=== PATIENT | female | born 1950 | race Caucasian/White ===

== ENCOUNTER 2020-12-07 16:05 | Outpatient (CLI) | payer OTHER, MEDICARE, SELFPAY | END 2020-12-07 16:06 | disposition home or self-care (01) | LOC: ANHCOVIDVC 16:06 | PROVIDERS: PCP Internal Medicine | DX: Z23 Encounter for immunization (principal) | CPT/HCPCS: 0001A; 91300 ==

== ENCOUNTER 2020-12-28 16:16 | Outpatient (CLI) | payer OTHER, MEDICARE, SELFPAY | END 2020-12-28 16:17 | disposition home or self-care (01) | LOC: ANHCOVIDVC 16:16 | PROVIDERS: PCP Internal Medicine | DX: Z23 Encounter for immunization (principal) | CPT/HCPCS: 0002A; 91300 ==

== ENCOUNTER 2022-01-24 11:11 | Emergency (ER) | payer OTHER, SELFPAY ==
--- NOTE | ~2022-01-24 | XR_ITS ---
EXAMINATION: XR chest 2V DATE: 01/24/2022 12:01 INDICATION: Chest discomfort TECHNIQUE: PA and lateral views of the chest were obtained. COMPARISON: Chest radiograph dated 08/02/2018 FINDINGS: Opacities along the bilateral lower lung zones. No pleural effusion or pneumothorax. The cardiomedias tinal silhouette is normal. Visualized bones and soft tissues are unremarkable. IMPRESSION: 1. Opacities in the bilateral lower lung zones which could represent atelectasis, pneumonia or less l ikely pulmonary edema. Reviewed, dictated and finalized at location B. IMPRESSION: 1. Opacities in the bilateral lower lung zones which could represent atelectasi s, pneumonia or less likely pulmonary edema.
--- NOTE | ~2022-01-24 | CT_ITS ---
EXAMINATION: CTA chest PE protocol DATE: 01/24/2022 13:29 INDICATION: Left flank pain. Back pain. TECHNIQUE: Computed tomography angiography (CTA) of the chest was performed with 100 mL Omnipaque-350 intravenous contrast timed to evaluate the pulmonary arteries. Coronal maximum intensity projection 3D-reconstructions were created by the technologist. Automated exposure control and iterative reconst ruction technique were employed. The dose-length product was 990.68 mGy-cm. COMPARISON: CT abdomen and pelvis 08/03/2018 FINDINGS: The lungs demonstrate mild atelectasis. Calcified pulmonary nodules and calcified left ge r lymph nodes are consistent with old granulomatous disease. No pleural effusion. The heart size is n ormal. No pericardial effusion. There is no pulmonary embolus. There is a gallstone in the gallbladde r, which is normal in size. Calcifications in the spleen are consistent with old granulomatous diseas e. There is mild thoracic spondylosis. IMPRESSION: 1. No pulmonary embolus. Reviewed, dictated and finalized at location A. IMPRESSION: 1. No pulmonary embolus.
--- NOTE | 2022-01-24 11:12 | ECG_ITS ---
Measurements Intervals [place] Rate: 69 P: 44 [place]: 194 QRS: -34 QRSD: 78 T: 74 QT: 390 QTc: 420 Interpretive Statements SINUS RHYTHM MARKED LEFT AXIS DEVIATION [QRS AXIS < -30] LOW QRS VOLTAGE IN PRECORDIAL LEADS [QRS DEFLECTION < 1.0 mV IN CHEST LEADS] PATTERN CONSISTENT WITH PULMONARY DISEASE MINIMAL ST DEPRESSION [0.025+ mV ST DEPRESSION] NO PREVIOUS ECG AVAILABLE FOR COMPARISON Electronically Signed On 01-24-2022 13:50:18 CDT by Flor Pittman M.D.
[2022-01-24 11:13] VITALS: BP 155/70; PULSE 76; RESP 20; TEMP 36.2; O2SAT 97
[2022-01-24 11:25] LABS: Basophils Percent Auto 0.5 % (0.2-1.2); Eosinophils Absolute Auto 0.3 K/mm3 (0-0.3); Eosinophils Percent Auto 3.4 % (0-4.4); Hematocrit 39.1 % (37.0-47.0); Hemoglobin 12.3 g/dL (12.0-15.0); Immature Granulocyte Absolute 0.04 K/mm3 (0.00-0.031); Immature Granulocyte Percent A 0.5 % (0-0.5); Lymphocytes Absolute Auto 1.31 K/mm3 (0.9-3.2); Lymphocytes Percent Auto 17.1 % (18.3-44.2); Mean Corpuscular HGB Conc 31.5 g/dl (32-36); Mean Corpuscular Hemoglobin 31.3 pg (26-34); Mean Corpuscular Volume 99.5 fl (80-100); Mean Platelet Volume 9.9 fl (7.4-10.4); Monocytes Absolute Auto 0.8 K/mm3 (0.1-0.6); Monocytes Percent Auto 10.3 % (2.6-8.5); Neutrophils Absolute Auto 5.2 K/mm3 (1.3-6.7); Neutrophils Percent Auto 68.2 % (45.5-73.1); Platelet Count Result 226 k/mm3 (150-375); Red Blood Count 3.93 M/mm3 (4.2-5.4); Red Cell Distribution Width 13.9 % (11.5-14.5); White Blood Count 7.7 K/mm3 (4.5-10.0)
[2022-01-24 11:29] VITALS: PULSE 67
[2022-01-24 11:38] LABS: Prothrombin Time 12.8 Seconds (11.1-14.7)
[2022-01-24 11:39] LABS: Alanine Aminotransferase 19 U/L (4-35); Albumin Level 3.9 g/dL (3.5-5.1); Alkaline Phosphatase 105 U/L (38-126); Anion Gap 4 mmol/L (8-16); Aspartate Amino Transferase 28 U/L (14-36); Bilirubin,Total 0.3 mg/dL (0.2-1.3); Blood Urea Nitrogen 16 mg/dL (7-17); Calcium 8.4 mg/dL (8.4-10.2); Carbon Dioxide 29 mmol/L (22-30); Chloride 102 mmol/L (98-107); Estimated CRCL calculation 57 ml/min; Estimated Glomerular Filt Rate 49; Glucose 77 mg/dL (65-110); Lipase 110 U/L (23-300); Partial Thromboplastin Time 30.5 SECONDS (22.3-36.8); Potassium 4.7 mmol/L (3.4-5.0); Sodium 135 mmol/L (137-145)
[2022-01-24 11:49] LABS: Troponin I < 0.012 ng/mL (0.000-0.034)
[2022-01-24 11:50] VITALS: BP 142/86; PULSE 65; RESP 21; O2SAT 97
--- NOTE | 2022-01-24 11:56 | ED.BACK ---
HPI - Back Pain/Injury General Chief Complaint: Chest Pain Stated Complaint: chest pain Time Seen by Provider: 01/24/22 11:43 Source: patient Mode of arrival: ambulatory Limitations: no limitations History of Present Illness HPI Narrative: Patient is a 71-year-old female complaining of left upper mid back pain, 5 out of 10, sharp, worse with movement and palpation that started 2 days ago. Patient denies any injury to the area. Patient denies any chest pain, shortness of breath, abdominal pain, nausea, vomiting, diaphoresis, fever or chills. Related Data Home Medications Medication Instructions Recorded Confirmed benztropine 2 mg tablet 2 mg PO BID 08/05/19 05/01/21 risperidone 3 mg tablet 3 mg PO DAILY 08/05/19 05/01/21 mirabegron 50 mg tablet,extended 50 mg PO DAILY 01/02/21 05/01/21 release 24 hr Allergies Allergy/AdvReac Type Severity Reaction Status Date / Time No Known Allergies Allergy Verified 01/24/22 11:28 Review of Systems Review of Systems: All systems reviewed & are unremarkable except as noted in HPI and below Constitutional: Constitutional: Denies body ache(s), Denies chills, Denies excessive sweating, Denies fatigue, Denies fever(s), Denies headache(s), Denies lethargy, Denies malaise, Denies weakness and Denies weight loss Eyes: Eyes: Denies blurry vision, Denies change in vision and Denies loss of vision ENT: Denies dizziness, Denies ear discharge, Denies headache(s), Denies lip swelling, Denies epistaxis, Denies nasal congestion, Denies neck pain, Denies throat swelling and Denies tongue swelling Cardiovascular: Cardiovascular: Denies chest pain, Denies chest pain at rest, Denies chest pain with activity, Denies diaphoresis, Denies rapid heart rate, Denies edema, Denies irregular heart rhythm, Denies lightheadedness, Denies palpitations, Denies dyspnea and Denies dyspnea on exertion Respiratory: Respiratory: Denies chest congestion, Denies cough, Denies hemoptysis, Denies dyspnea and Denies dyspnea on exertion Gastrointestinal: Gastrointestinal: Denies abdominal pain, Denies melena, Denies hematochezia, Denies diarrhea, Denies nausea, Denies vomiting and Denies hematemesis Musculoskeletal: Musculoskeletal: Denies abnormal gait, Denies deformity, Denies joint swelling, Denies limited range of motion, Denies neck pain and Denies numbness Neurologic: Denies Abnormal speech present, Denies abnormal gait, Denies confusion, Denies dizziness, Denies headache(s), Denies focal weakness, Denies loss of vision, Denies numbness, Denies Other visual disturbances, Denies Sensory deficit (Neuro) and Denies weakness Psychiatric: Psychiatric: Denies confusion, Denies depression, Denies auditory hallucinations, Denies homicidal ideation and Denies suicidal ideation Endocrine: Endocrine: Denies cold intolerance, Denies excessive sweating, Denies fatigue, Denies heat intolerance and Denies palpitations Hematologic/Lymphatic: Hematologic/Lymphatic: Denies easy bleeding and Denies easy bruising Allergic/Immunologic: Allergic/Immunologic: Denies lip swelling, Denies throat swelling and Denies tongue swelling PMFSH Past Medical History Medical History (Updated 01/24/22 @ 15:06 by Larry Cintron MD) Plantar fasciitis Family History Family History Mother Diabetes mellitus, Onset Age: 49 Father Patient's father is , Onset Age: 70 Social History Social History Smoking status: Never smoker Second hand tobacco smoke exposure: No Alcohol intake: never Exam Const: General: cooperative, comfortable, no acute distress, well developed, alert and awake; No confusion Nutritional Appearance: obese Orientation/consciousness: oriented to person, oriented to place, oriented to time, patient oriented x3 and No confusion Limitations: no limitations HENMT: Head: normal t
[2022-01-24 12:08] LABS: D Dimer 0.69 ug/mL (<0.48)
[2022-01-24 14:18] VITALS: BP 142/74; PULSE 74; RESP 16; O2SAT 98
[2022-01-24 14:31] LABS: Troponin I < 0.012 ng/mL (0.000-0.034)
[2022-01-24 15:21] VITALS: BP 138/86; PULSE 84; RESP 16; O2SAT 99
== END 2022-01-24 15:21 | disposition home or self-care (01) ==
PROVIDERS: Emergency Provider Emergency Medicine; PCP Family Medicine
DX: M54.6 Pain in thoracic spine (principal); R94.31 Abnormal electrocardiogram [ECG] [EKG]; R91.8 Other nonspecific abnormal finding of lung field
CPT/HCPCS: 36415; 71046; 71275; 80053; 83690; 84484; 85025; 85380; 85610; 85730; 93005; 99284; Q9967

== ENCOUNTER 2022-02-10 11:33 | Outpatient (CLI) | payer OTHER, SELFPAY ==
--- NOTE | ~2022-02-10 | MM_ITS ---
EXAMINATION: MM screening [facility] BI w mckenzie HISTORY: Screening mammogram TECHNIQUE: Craniocaudal and mediolateral oblique 3-D tomosynthesis images were obtained and synthetic 2-D images were generated. CAD analysis was submitted and interpreted. COMPARISON: 01/28/2017, 07/13/2015, 04/20/2013 bilateral screening mammogram examinations BREAST PARENCHYMAL COMPOSITION: The breasts are almost entirely fatty. FINDINGS: There is no evidence of suspicious mass, calcification, or architectural distortion to sugg est malignancy in either breast. There has been no suspicious interval change. IMPRESSION: 1. No mammographic evidence of malignancy. 2. Recommend routine screening mammography in one year. BI-RADS Category 1: Negative Reviewed, dictated and finalized at location A.
== END 2022-02-10 11:34 | disposition home or self-care (01) ==
LOC: ANHIMG 11:35
PROVIDERS: PCP Family Medicine; Visit Provider Family Medicine
DX: Z12.31 Encounter for screening mammogram for malignant neoplasm of breast (principal)
CPT/HCPCS: 77063; 77067

== ENCOUNTER 2022-05-14 13:45 | Outpatient (CLI) | payer OTHER, SELFPAY ==
--- NOTE | ~2022-05-14 | XR_ITS ---
MODIFIED ESOPHAGRAM HISTORY: Dysphagia. TECHNIQUE: Modified barium esophagram was performed on 05/14/2022. I administered fluoroscopy and perf ormed the exam with speech pathologist. Patient was seated for lateral fluoroscopic imaging for jose a stion of thin liquids, pudding, solids and quantified amounts, followed by thin liquids in uncontroll ed amounts. This was recorded on tape. A single fluoroscopic spot image was also recorded. The DAP fo r this procedure was 2.2 Gycm2. The amount of fluoroscopy time used during this procedure was 1.5 min utes. FINDINGS: Oral stage: Adequate function. Pharyngeal stage: Adequate function. Cervical/esophageal stage: Adequate function. IMPRESSION: Patient tolerated regular consistency oral feedings in the upright position. Please fina elate with speech pathologist findings and specific feeding recommendations. Reviewed, dictated and finalized at location A. IMPRESSION: Patient tolerated regular consistency oral feedings in the upright position. Please correlate with speech pathologist findings and specific feedi ng recommendations.
--- NOTE | 2022-05-14 15:37 | STOPEVAL ---
Thank you for referring Ashlyn Edwards to [facility].? Attending Provider: Juan Luis Webster DO Modified Barium Swallow Evaluation Recent Swallowing History Reports Dysphagia Yes: I choke alot... especially with crackers Onset of Dysphagia A couple of years ago History of Dysphagia No Other Factors Impacting Dysphagia None History of Pneumonia No Reported Difficult Consistencies Solids Intake Method Prior to Swallow Oral Evaluation Liquid Consistency Prior to Swallow Thin (0) Evaluation Dentition Comments chooses not to wear dentures; poor dentition Consistency Solid Consistency Method of Presentation Spoon Oral Preparatory Symptoms None Oral Phase Symptoms None Pharyngeal Phase Symptoms None Severity of Vallecular Residue None - 0% No Residue Severity of Pyriform Sinus Residue None - 0% No Residue 8 Point Laryngeal Penetration-Aspiration Material Does Not Enter Airway Scale Cervical/Esophageal Symptoms None Mixed Consistency Method of Presentation Spoon Oral Preparatory Symptoms None Oral Phase Symptoms None Pharyngeal Phase Symptoms None Severity of Vallecular Residue None - 0% No Residue Severity of Pyriform Sinus Residue None - 0% No Residue 8 Point Laryngeal Penetration-Aspiration Material Does Not Enter Airway Scale Cervical/Esophageal Symptoms None Pureed Consistency Method of Presentation Spoon Oral Preparatory Symptoms None Oral Phase Symptoms None Pharyngeal Phase Symptoms None Severity of Vallecular Residue None - 0% No Residue Severity of Pyriform Sinus Residue None - 0% No Residue 8 Point Laryngeal Penetration-Aspiration Material Does Not Enter Airway Scale Cervical/Esophageal Symptoms None Thin Uncontrolled 2 Method of Presentation Straw Oral Preparatory Symptoms None Oral Phase Symptoms None Pharyngeal Phase Symptoms None Severity of Vallecular Residue None - 0% No Residue Severity of Pyriform Sinus Residue None - 0% No Residue 8 Point Laryngeal Penetration-Aspiration Material Does Not Enter Airway Scale Cervical/Esophageal Symptoms None Thin Uncontrolled 1 Method of Presentation Cup Oral Preparatory Symptoms None Oral Phase Symptoms None Pharyngeal Phase Symptoms None Severity of Vallecular Residue None - 0% No Residue Severity of Pyriform Sinus Residue None - 0% No Residue 8 Point Laryngeal Penetration-Aspiration Material Does Not Enter Airway Scale Cervical/Esophageal Symptoms None Thin 5 mL Method of Presentation Spoon Oral Preparatory Symptoms
== END 2022-05-14 13:46 | disposition home or self-care (01) ==
PROVIDERS: PCP Family Medicine; Visit Provider Family Medicine
DX: R13.10 Dysphagia, unspecified (principal)
CPT/HCPCS: 92611

== ENCOUNTER 2022-11-30 17:54 | Emergency (ER) | payer OTHER, SELFPAY ==
[2022-11-30] VITALS (13 sets, daily range): BP systolic 124–151; BP diastolic 55–66; PULSE 89–98; RESP 15–25; TEMP 36.6–36.8; O2SAT 93–96
--- NOTE | ~2022-11-30 | XR_ITS ---
EXAMINATION: XR chest 1V portable INDICATION: Shortness of breath, COVID 19 positive TECHNIQUE: Portable AP chest at 1922 hours COMPARISON: 01/24/2022 FINDINGS: The lungs are free of acute opacities. No pleural effusion or pneumothorax. The cardiomedia stinal silhouette is normal. IMPRESSION: 1. No acute cardiopulmonary abnormality. Reviewed, dictated and finalized at location F. ND OFFICER
--- NOTE | 2022-11-30 17:56 | ECG_ITS ---
Measurements Intervals [place] Rate: 93 P: 74 DC: 163 QRS: -30 QRSD: 90 T: 64 QT: 351 QTc: 439 Interpretive Statements SINUS RHYTHM PATTERN CONSISTENT WITH PULMONARY DISEASE BORDERLINE T WAVE ABNORMALITY- HIGH LATERAL LEADS BASELINE ARTIFACT- I, II, III, AVR, AVL, AVF BORDERLINE ECG COMPARED TO ECG 01/24/2022 11:16:27 NO SIGNIFICANT CHANGES Electronically Signed On 12-01-2022 6:50:29 MAGAZINE REPAIRER by Jh Tamayo D.O.
[2022-11-30 18:20] LABS: Basophils Percent Auto 0.3 % (0.2-1.2); Eosinophils Absolute Auto 0.1 K/mm3 (0-0.3); Eosinophils Percent Auto 1.2 % (0-4.4); Hematocrit 41.6 % (37.0-47.0); Hemoglobin 13.4 g/dL (12.0-15.0); Immature Granulocyte Absolute 0.12 K/mm3 (0.00-0.031); Immature Granulocyte Percent A 1.3 % (0-0.5); Lymphocytes Absolute Auto 1.99 K/mm3 (0.9-3.2); Lymphocytes Percent Auto 21.1 % (18.3-44.2); Mean Corpuscular HGB Conc 32.2 g/dl (32-36); Mean Corpuscular Hemoglobin 30.2 pg (26-34); Mean Corpuscular Volume 93.9 fl (80-100); Mean Platelet Volume 9.7 fl (7.4-10.4); Monocytes Absolute Auto 1.3 K/mm3 (0.1-0.6); Monocytes Percent Auto 13.4 % (2.6-8.5); Neutrophils Absolute Auto 5.9 K/mm3 (1.3-6.7); Neutrophils Percent Auto 62.7 % (45.5-73.1); Platelet Count Result 250 k/mm3 (150-375); Red Blood Count 4.43 M/mm3 (4.2-5.4); Red Cell Distribution Width 13.4 % (11.5-14.5); White Blood Count 9.5 K/mm3 (4.5-10.0)
[2022-11-30 18:34] LABS: Alanine Aminotransferase 33 U/L (6-35); Albumin Level 4.1 g/dL (3.5-5.1); Alkaline Phosphatase 114 U/L (38-126); Anion Gap 6 mmol/L (8-16); Aspartate Amino Transferase 42 U/L (14-36); Bilirubin,Total 0.6 mg/dL (0.2-1.3); Blood Urea Nitrogen 22 mg/dL (7-17); Calcium 8.9 mg/dL (8.4-10.2); Carbon Dioxide 32 mmol/L (22-30); Chloride 98 mmol/L (98-107); Estimated Glomerular Filt Rate 44; Glucose 90 mg/dL (65-110); Potassium 3.9 mmol/L (3.4-5.0); Sodium 136 mmol/L (137-145)
[2022-11-30] MEDS: BENZONATATE 100 MG CAPSULE 200 MG PO (22:38)
[2022-11-30] MEDS: IPRATROPIUM BR 0.02% INH SOLN 0.5 MG/2.5 ML VIAL INHALATION (22:55)
[2022-11-30] MEDS: ALBUTEROL SULFATE NEB 2.5 MG/3 ML INH INHALATION (22:55)
--- NOTE | 2022-11-30 23:00 | ED.GENADULT ---
HPI - General Adult General Chief complaint: Shortness of Breath/Dyspnea Stated complaint: COVID+, high BP and low oxygen Time Seen by Provider: 11/30/22 22:29 History of Present Illness HPI narrative: Patient 72-year-old female who presents the emergency department with chief complaint of shortness of breath. The patient reports that she was diagnosed with COVID on Saturday and started Paxlovid on Saturday. Patient states she has been taking Paxlovid and reports that she has felt a little tight in her chest and has had a cough. The patient states that she noticed her blood pressure was running a little high this evening and decided to come to the emergency department for evaluation. Related Data Home Medications Medication Instructions Recorded Confirmed benztropine 2 mg tablet 2 mg PO BID 08/05/19 10/25/22 risperidone 3 mg tablet (Risperdal) 3 mg PO DAILY 08/05/19 10/25/22 mirabegron 50 mg tablet,extended 50 mg PO DAILY 01/02/21 10/25/22 release 24 hr (Myrbetriq) aripiprazole 15 mg tablet 7.5 mg PO DAILY 10/26/22 Allergies Allergy/AdvReac Type Severity Reaction Status Date / Time No Known Allergies Allergy Verified 10/25/22 16:18 Review of Systems Review of Systems: A 10 system review of systems was completed on the patient and is negative except for what is stated in the HPI. Nursing and ancillary documentation was reviewed. [facility] Past Medical History Medical History (Updated 12/01/22 @ 00:08 by Paresh Dixon MD) Plantar fasciitis Family History Family History Mother Diabetes mellitus, Onset Age: 49 Father Patient's father is , Onset Age: 70 Social History Social History Smoking status: Never smoker Second hand tobacco smoke exposure: No Alcohol intake: never Exam Narrative: GENERAL: Well-appearing, well-nourished, and in no acute distress. HEAD: Normocephalic, atraumatic. EYES: PERRLA and EOMI. ENT: Nares clear, no rhinorrhea or epistaxis. Mucous membranes moist. NECK: Supple. CHEST: Clear to auscultation. No respiratory distress. HEART: Regular rate and rhythm. No murmur heard. Normal peripheral pulses. ABDOMEN: Soft, nontender, nondistended, normal active bowel sounds. EXTREMITIES: Normal range of motion. No edema. SKIN: Warm, dry, no rash. NEURO: No focal deficits. Alert and oriented x3. PSYCH: Normal mood and affect. Course Vital Signs Vital signs: Vital Signs Temperature 36.6 C 11/30/22 18:04 Pulse Rate 89 11/30/22 18:04 Respiratory Rate 18 11/30/22 18:04 Blood Pressure 124/56 L 11/30/22 18:04 Pulse Oximetry 93 11/30/22 18:04 Oxygen Delivery Room Air 11/30/22 18:04 Temperature 36.8 C 11/30/22 21:24 Pulse Rate 97 12/01/22 00:00 Respiratory Rate 19 12/01/22 00:00 Blood Pressure 150/72 H 12/01/22 00:00 Pulse Oximetry 96 12/01/22 00:00 Oxygen Delivery Room Air 11/30/22 22:25 Medical Decision Making MDM Narrative Medical decision making narrative: Differential diagnosis includes COVID-pneumonia, respiratory failure, COVID-19 infection, upper respiratory infection. EKG is sinus rhythm rate of [address] elevation or ST depression Chest x-ray showed no evidence of focal infiltrate Laboratory studies were obtained which showed a normal white blood cell count normal electrolytes patient did have a mildly elevated creatinine at 1.2 but the patient does have history of a mildly elevated creatinine at 1.1. After receiving a breathing treatment and receiving fluids and Tessalon Perles Vital Signs Vital Signs: Vital Signs Temperature 36.6 C 11/30/22 18:04 Pulse Rate 89 11/30/22 18:04 Respiratory Rate 18 11/30/22 18:04 Blood Pressure 124/56 L 11/30/22 18:04 Pulse Oximetry 93 11/30/22 18:04 Oxygen Delivery Room Air 11/30/22 18:04 Temper
[2022-11-30] MEDS: SODIUM CHLORIDE 0.9% IV 1,000 ML 999 ML IV CONT (23:14)
[2022-11-30 23:44] LABS: NT Pro B Type Natriuretic Pept 50 pg/mL (19.9-100); Troponin I < 0.012 ng/mL (0.000-0.034)
[2022-12-01] VITALS: BP 150/72; PULSE 97; RESP 19; O2SAT 96
--- NOTE | 2022-12-01 00:04 | PC.NURSE ---
Patient states she is feeling much better and wishes to go home. Patient still has IV bolus infusing, she is requesting to have it stopped and to be discharged. ERP aware.
[2022-12-01 00:20] VITALS: BP 111/70; PULSE 98; RESP 20; TEMP 36.7; O2SAT 94
== END 2022-12-01 00:21 | disposition home or self-care (01) ==
PROVIDERS: Emergency Medicine; Emergency Provider Emergency Medicine; PCP Family Medicine
DX: U07.1 COVID-19 (principal); Z79.899 Other long term (current) drug therapy; Z79.84 Long term (current) use of oral hypoglycemic drugs
CPT/HCPCS: 36415; 71045; 80053; 83880; 84484; 85025; 93005; 94640; 96360; 99284; A9270; J7030

== ENCOUNTER 2022-12-28 09:10 | Outpatient (CLI) | payer OTHER, SELFPAY ==
[2022-12-28 18:42] LABS: Basophils Percent Auto 0.4 % (0.2-1.2); Eosinophils Absolute Auto 0.3 K/mm3 (0-0.3); Eosinophils Percent Auto 3.4 % (0-4.4); Hematocrit 42.4 % (37.0-47.0); Hemoglobin 12.9 g/dL (12.0-15.0); Immature Granulocyte Absolute 0.03 K/mm3 (0.00-0.031); Immature Granulocyte Percent A 0.4 % (0-0.5); Lymphocytes Absolute Auto 1.58 K/mm3 (0.9-3.2); Lymphocytes Percent Auto 20.8 % (18.3-44.2); Mean Corpuscular HGB Conc 30.4 g/dl (32-36); Mean Corpuscular Hemoglobin 30.4 pg (26-34); Mean Platelet Volume 9.8 fl (7.4-10.4); Monocytes Absolute Auto 0.6 K/mm3 (0.1-0.6); Monocytes Percent Auto 8.3 % (2.6-8.5); Neutrophils Absolute Auto 5.1 K/mm3 (1.3-6.7); Neutrophils Percent Auto 66.7 % (45.5-73.1); Platelet Count Result 219 k/mm3 (150-375); Red Blood Count 4.24 M/mm3 (4.2-5.4); Red Cell Distribution Width 14.8 % (11.5-14.5); White Blood Count 7.6 K/mm3 (4.5-10.0)
[2022-12-28 18:54] LABS: Alanine Aminotransferase 24 U/L (6-35); Albumin Level 3.9 g/dL (3.5-5.1); Alkaline Phosphatase 114 U/L (38-126); Anion Gap 6 mmol/L (8-16); Aspartate Amino Transferase 27 U/L (14-36); Bilirubin,Total 0.6 mg/dL (0.2-1.3); Blood Urea Nitrogen 22 mg/dL (7-17); Calcium 8.9 mg/dL (8.4-10.2); Carbon Dioxide 29 mmol/L (22-30); Chloride 104 mmol/L (98-107); Cholesterol 169 mg/dL (0-200); Estimated Glomerular Filt Rate 49; Glucose 73 mg/dL (65-110); HDL Direct 39 mg/dL; Potassium 4.3 mmol/L (3.4-5.0); Sodium 139 mmol/L (137-145); Triglycerides 90 mg/dL (<150)
[2022-12-28 19:56] LABS: LDL Cholesterol Direct 94 mg/dL
[2022-12-28 20:06] LABS: Hemoglobin A1C 5.2 % (<5.7)
[2022-12-28 21:56] LABS: Vitamin D 25 Hydroxy < 12.8 ng/mL
== END 2022-12-28 09:11 | disposition home or self-care (01) ==
LOC: ANHGOSHLAB 09:13
PROVIDERS: PCP Family Medicine; Visit Provider Nurse Practitioner Psychiatric/Mental Health
DX: F20.0 Paranoid schizophrenia (principal); F41.1 Generalized anxiety disorder; F33.1 Major depressive disorder, recurrent, moderate; F51.01 Primary insomnia; G24.01 Drug induced subacute dyskinesia; E66.9 Obesity, unspecified; E78.5 Hyperlipidemia, unspecified; E23.2 Diabetes insipidus; I10 Essential (primary) hypertension; Z79.899 Other long term (current) drug therapy
CPT/HCPCS: 36415; 80053; 80061; 82306; 82746; 83036; 85025

== ENCOUNTER → 2023-05-17 13:33 | Outpatient (CLI) | payer OTHER, SELFPAY ==
--- NOTE | ~2023-05-17 | XR_ITS ---
EXAM: XR tibia fibula RT 2V DATE: 05/17/2023 13:56 HISTORY: no injury posterior distal lower leg pain for several months . COMPARISON: 11/07/2009. FINDINGS: Normal mineralization. No fracture or dislocation. No lytic or blastic lesion. Mild degene rative change in the right knee. Mild to moderate degenerative changes in the right ankle joint and p osterior subtalar facet. Large os trigonum which can be a source of chronic posterior ankle pain in s ome patients. Achilles enthesopathy. No erosion or periosteal change. Soft tissues within normal limi ts. IMPRESSION: Moderate tibiotalar and subtalar facet arthritis. Prominent os trigonum. Achilles entheso lu. Reviewed, dictated and finalized at location K. IMPRESSION: Moderate tibiotalar and subtalar facet arthritis. Prominent os trig onum. Achilles enthesopathy.
== END ==
PROVIDERS: PCP Family Medicine; Visit Provider Family Medicine
DX: M79.661 Pain in right lower leg (principal); M19.071 Primary osteoarthritis, right ankle and foot
CPT/HCPCS: 73590

== ENCOUNTER 2023-07-12 09:54 | Emergency (ER) | payer OTHER, SELFPAY ==
[2023-07-12 10:06] VITALS: BP 141/72; PULSE 96; RESP 18; TEMP 37.2; O2SAT 95
--- NOTE | 2023-07-12 10:06 | ED.URI ---
HPI - URI/Sore Throat General Chief Complaint: Chest Pain Stated Complaint: Sore Throat/Headache Time Seen by Provider: 07/12/23 10:06 Source: patient, RN notes reviewed and old records reviewed Mode of arrival: ambulatory Limitations: no limitations History of Present Illness HPI Narrative: 73-year-old female presents to the [facility] with over the last 3 days has had increased left-sided chest pain, shortness of breath. Patient also states that she is constantly dizzy, worse today. Has had nausea. States pain currently is 8/10. Patient with a history of psychiatric conditions, high blood pressure, high cholesterol, morbid obesity No treatment prior to arrival Patient not a good historian. Daughter reports COVID positive 2 weeks ago Onset (ago): day(s) (3) Treatments prior to arrival: none Related Data Home Medications Medication Instructions Recorded Confirmed benztropine 2 mg tablet 2 mg PO BID 08/05/19 07/12/23 risperidone 3 mg tablet (Risperdal) 3 mg PO DAILY 08/05/19 07/12/23 mirabegron 50 mg tablet,extended 50 mg PO DAILY 01/02/21 07/12/23 release 24 hr (Myrbetriq) aripiprazole 15 mg tablet 7.5 mg PO DAILY 10/26/22 07/12/23 Allergies Allergy/AdvReac Type Severity Reaction Status Date / Time No Known Allergies Allergy Verified 07/12/23 10:07 Review of Systems Review of Systems: All systems reviewed & are unremarkable except as noted in HPI and below Constitutional: Constitutional: Reports no additional constitutional complaints Eyes: Eyes: Reports no additional eye complaints ENT: Reports system reviewed and no additional complaints, except as documented Cardiovascular: Cardiovascular: Reports as per HPI, Reports no additional cardiovascular complaints, Reports chest pain (Left-sided), Reports leg edema, Reports lightheadedness and Reports dyspnea Respiratory: Respiratory: Reports as per HPI, Denies chest congestion, Denies cough and Reports dyspnea Gastrointestinal: Gastrointestinal: Reports no additional gastrointestinal complaints, Denies abdominal pain, Denies nausea and Denies vomiting Musculoskeletal: Musculoskeletal: Reports no additional musculoskeletal complaints Integumentary/Breasts: Skin/Breast: Reports system reviewed and no additional complaints, except as docu Neurologic: Reports system reviewed and no additional complaints, except as documented Psychiatric: Psychiatric: Reports no additional psychiatric complaints Allergic/Immunologic: Allergic/Immunologic: Reports no additional allergic/immunologic complaints PMFSH Past Medical History Medical History (Updated 07/12/23 @ 10:38 by Yessenia Crisostomo APRN) Bipolar disorder, current episode mixed, moderate Chronic kidney disease due to diabetes mellitus Chronic kidney disease, stage III (moderate) Essential hypertension Mixed hyperlipidemia Morbid obesity Obesity (BMI 35.0-39.9 without comorbidity) Plantar fasciitis Schizoaffective disorder, bipolar type Type 2 diabetes mellitus with kidney complication, without long-term current use of insulin Family History Family History Mother Diabetes mellitus, Onset Age: 49 Father Patient's father is , Onset Age: 70 Social History Social History Social History: Caffeine- soda/coffee Smoking status: Never smoker Second hand tobacco smoke exposure: No Alcohol intake: never Substance use: never Substance use type: does not use Lack of Transportation: No Lack of Food: Sometimes True Current Housing: I Have Housing Concerned About Future Housing: YES Difficulty Paying Gas/Electric Bills: YES Difficulty Paying for Meds: YES Currently Unemployed: No Education: High School Diploma/GED Difficulty w/ Childcare or Family Care: No Comments At the time of my signature, I reviewed and agree with the nursing past medical,
[2023-07-12 10:09] VITALS: BP 141/72; PULSE 96; RESP 18; TEMP 37.2; O2SAT 95
--- NOTE | 2023-07-12 10:10 | ECG_ITS ---
Measurements Intervals [place] Rate: 92 P: 2 [place]: 120 QRS: -38 QRSD: 93 T: 64 QT: 361 QTc: 447 Interpretive Statements SINUS RHYTHM POSSIBLE ANTERIOR MYOCARDIAL INFARCTION [30 ms Q WAVE IN V3/V4, OR R < 0.2 mV IN V4], OF INDETERMINATE AGE INFERIOR MYOCARDIAL INFARCTION [40+ ms Q WAVE AND/OR ST/T ABNORMALITY IN II/aVF], OF INDETERMINATE AGE ABNORMAL ECG COMPARED TO ECG 11/30/2022 22:17:36 MYOCARDIAL INFARCT FINDING NOW PRESENT Electronically Signed On 07-12-2023 14:00:55 CDT by Shelton Burnett M.D.
[2023-07-12] MEDS: ASPIRIN 81 MG CHEWABLE TABLET 324 MG PO (10:20)
== END 2023-07-12 10:23 | disposition short-term general hospital (02) ==
PROVIDERS: Emergency Provider Nurse Practitioner; PCP Family Medicine
DX: R07.9 Chest pain, unspecified (principal); R06.02 Shortness of breath; E11.22 Type 2 diabetes mellitus with diabetic chronic kidney disease; I12.9 Hypertensive chronic kidney disease with stage 1 through stage 4 chronic kidney disease, or unspecified chronic kidney disease; N18.30 Chronic kidney disease, stage 3 unspecified; E78.2 Mixed hyperlipidemia
CPT/HCPCS: 87081; 87880; 93005; 99213; A9270; G0463

== ENCOUNTER 2023-07-12 10:39 | Emergency (ER) | payer OTHER, SELFPAY ==
[2023-07-12] VITALS (16 sets, daily range): BP systolic 120–173; BP diastolic 44–104; PULSE 88–115; RESP 12–20; TEMP 36.8; O2SAT 94–99
--- NOTE | ~2023-07-12 | XR_ITS ---
Clinical Indication: Chest pain PA and lateral views of the chest: Comparison: 11/30/2022 Findings: There is linear left basilar scarring. Lungs are otherwise clear. Cardiomediastinal silhou ette is within normal limits. Bones and soft tissues are unremarkable. Impression: Linear left basilar scarring, otherwise clear lungs. Reviewed, dictated and finalized at location . Impression: Linear left basilar scarring, otherwise clear lungs.
--- NOTE | 2023-07-12 10:41 | ECG_ITS ---
Measurements Intervals [place] Rate: 85 P: 53 [place]: 184 QRS: -33 QRSD: 86 T: 60 QT: 360 QTc: 429 Interpretive Statements SINUS RHYTHM LEFT AXIS DEVIATION [QRS AXIS < -30] POSSIBLE ANTERIOR MYOCARDIAL INFARCTION , PROBABLY OLD [30 ms Q WAVE IN V3/V4, OR R < 0.2 mV IN V4] INFERIOR INFARCTION, AGE UNDETERMINED ABNORMAL ECG COMPARED TO ECG 07/12/2023 10:19:49 LEFT-AXIS DEVIATION NOW PRESENT Electronically Signed On 07-12-2023 14:05:02 CDT by Shelton Burnett M.D.
[2023-07-12 11:07] LABS: Basophils Percent Auto 0.5 % (0.2-1.2); Eosinophils Absolute Auto 0.1 K/mm3 (0-0.3); Eosinophils Percent Auto 1.4 % (0-4.4); Hematocrit 44.8 % (37.0-47.0); Hemoglobin 14.3 g/dL (12.0-15.0); Immature Granulocyte Absolute 0.08 K/mm3 (0.00-0.031); Lymphocytes Absolute Auto 1.45 K/mm3 (0.9-3.2); Lymphocytes Percent Auto 18.2 % (18.3-44.2); Mean Corpuscular HGB Conc 31.9 g/dl (32-36); Mean Corpuscular Hemoglobin 31.2 pg (26-34); Mean Corpuscular Volume 97.6 fl (80-100); Mean Platelet Volume 9.7 fl (7.4-10.4); Monocytes Absolute Auto 0.8 K/mm3 (0.1-0.6); Monocytes Percent Auto 9.7 % (2.6-8.5); Neutrophils Absolute Auto 5.5 K/mm3 (1.3-6.7); Neutrophils Percent Auto 69.2 % (45.5-73.1); Platelet Count Result 257 k/mm3 (150-375); Red Blood Count 4.59 M/mm3 (4.2-5.4); Red Cell Distribution Width 13.8 % (11.5-14.5)
[2023-07-12 11:20] LABS: Alanine Aminotransferase 22 U/L (6-35); Albumin Level 4.2 g/dL (3.5-5.1); Alkaline Phosphatase 93 U/L (38-126); Anion Gap 6 mmol/L (8-16); Aspartate Amino Transferase 25 U/L (14-36); Bilirubin,Total 0.6 mg/dL (0.2-1.3); Blood Urea Nitrogen 23 mg/dL (7-17); Calcium 8.9 mg/dL (8.4-10.2); Carbon Dioxide 29 mmol/L (22-30); Chloride 103 mmol/L (98-107); Estimated CRCL calculation 50 ml/min; Estimated Glomerular Filt Rate 49; Glucose 99 mg/dL (65-110); Lipase 141 U/L (23-300); Potassium 4.2 mmol/L (3.4-5.0); Sodium 138 mmol/L (137-145)
[2023-07-12 11:22] LABS: Partial Thromboplastin Time 27.7 SECONDS (22.3-36.8); Prothrombin Time 13.1 Seconds (11.1-14.7)
[2023-07-12 11:30] LABS: Troponin I < 0.012 ng/mL (0.000-0.034)
--- NOTE | 2023-07-12 12:35 | PC.NURSE ---
Patient denies CP at this time
[2023-07-12 14:33] LABS: Troponin I < 0.012 ng/mL (0.000-0.034)
--- NOTE | 2023-07-12 14:53 | ED.CHESTPAIN ---
HPI - Chest Pain General Chief Complaint: Chest Pain Stated Complaint: CP x 3 days, dyspnea Time Seen by Provider: 07/12/23 12:48 History of Present Illness HPI narrative: 73-year-old female present to the emergency department for evaluation of intermittent chest pain and shortness of breath. Patient says that over the last few days she has had intermittent chest pain with ambulation. At rest patient denies any chest pain or shortness of breath. Patient reports approximately 10 years ago she had a stress test which she failed and then patient had an Angiocath which showed no blockages. Related Data Home Medications Medication Instructions Recorded Confirmed benztropine 2 mg tablet 2 mg PO BID 08/05/19 07/12/23 risperidone 3 mg tablet (Risperdal) 3 mg PO DAILY 08/05/19 07/12/23 mirabegron 50 mg tablet,extended 50 mg PO DAILY 01/02/21 07/12/23 release 24 hr (Myrbetriq) aripiprazole 15 mg tablet 7.5 mg PO DAILY 10/26/22 07/12/23 Allergies Allergy/AdvReac Type Severity Reaction Status Date / Time No Known Allergies Allergy Verified 07/12/23 10:07 Review of Systems Review of Systems: All systems reviewed & are unremarkable except as noted in HPI and below PMFSH Past Medical History Medical History (Updated 07/12/23 @ 17:22 by Da Mosley MD) Bipolar disorder, current episode mixed, moderate Chronic kidney disease due to diabetes mellitus Chronic kidney disease, stage III (moderate) Essential hypertension Mixed hyperlipidemia Morbid obesity Obesity (BMI 35.0-39.9 without comorbidity) Plantar fasciitis Schizoaffective disorder, bipolar type Type 2 diabetes mellitus with kidney complication, without long-term current use of insulin Family History Family History Mother Diabetes mellitus, Onset Age: 49 Father Patient's father is , Onset Age: 70 Social History Social History Social History: Caffeine- soda/coffee Smoking status: Never smoker Second hand tobacco smoke exposure: No Alcohol intake: never Substance use: never Substance use type: does not use Lack of Transportation: No Lack of Food: Sometimes True Current Housing: I Have Housing Concerned About Future Housing: YES Difficulty Paying Gas/Electric Bills: YES Difficulty Paying for Meds: YES Currently Unemployed: No Education: High School Diploma/GED Difficulty w/ Childcare or Family Care: No Exam Narrative: APPEARANCE: Well appearing, no pain, no distress, well-nourished. HEAD: normocephalic, atraumatic. EYES: PERRLA/EOMI, conjunctivae clear. NOSE: Normal no drainage NECK: Supple. No adenopathy, no masses. RESPIRATORY: Airway patent, respirations nonlabored. Clear to auscultation bilaterally, no rales, rhonchi, wheezing. CARDIOVASCULAR: Regular rate and rhythm without murmurs rubs or gallops. ABDOMINAL: Soft, nontender, nondistended, normal bowel sounds MUSCULOSKELETAL: Moves all extremities. Strength/ROM intact, No edema, No calf tenderness. NEURO: Alert. Cranial nerves II through XII intact. Grossly intact SKIN: Warm, dry. Normal Color Course Course Emergency Course: 73-year-old female present emergency department for evaluation of chest pain. Patient is afebrile with no leukocytosis and a stable hemoglobin of 14.3. Patient has negative serial troponins and normal kidney function. Chest x-ray shows no acute abnormalities. Patient ambulated with out issue or pain. Patient's orthostatic vitals were negative. Patient was offered cardiac admission due to her story for stable angina and patient declined. Patient prefers to have close outpatient follow-up. All questions and concerns and reasons to return to the ED were discussed. Vital Signs Vital signs: Vital Signs Temperature 98.2 F 07/12/23 10:45 Pulse Rate 98 07/12/23 10:45 Respiratory Rate 18
--- NOTE | 2023-07-12 15:39 | PC.NURSE ---
Patient placed on 2L oxygen due to oxygen sat being at 91%
--- NOTE | 2023-07-12 15:40 | PC.NURSE ---
Patient ambulated with steady gate and denies any CP or SOB while ambulating
== END 2023-07-12 18:00 | disposition home or self-care (01) ==
PROVIDERS: Emergency Provider Emergency Medicine; PCP Family Medicine
DX: R07.9 Chest pain, unspecified (principal); E11.22 Type 2 diabetes mellitus with diabetic chronic kidney disease; I12.9 Hypertensive chronic kidney disease with stage 1 through stage 4 chronic kidney disease, or unspecified chronic kidney disease; N18.30 Chronic kidney disease, stage 3 unspecified; E78.2 Mixed hyperlipidemia; E66.01 Morbid (severe) obesity due to excess calories; Z68.38 Body mass index [BMI] 38.0-38.9, adult; F31.62 Bipolar disorder, current episode mixed, moderate; F25.9 Schizoaffective disorder, unspecified; Z79.85 Long-term (current) use of injectable non-insulin antidiabetic drugs
CPT/HCPCS: 36415; 71046; 80053; 83690; 84484; 85025; 85610; 85730; 87081; 87880; 93005; 99284; A9270

== ENCOUNTER → 2023-08-08 16:12 | Outpatient (CLI) | payer OTHER, SELFPAY ==
--- NOTE | ~2023-08-08 | XR_ITS ---
EXAMINATION: XR lumbar spine min 4V DATE: 08/08/2023 16:25 INDICATION: Low back pain. TECHNIQUE: 5 views of lumbar spine were obtained. COMPARISON: None. FINDINGS: There is 7 degrees dextrocurvature of lumbar spine. There is mild chronic anterior wedging of L1 vertebral body. There is 3 mm anterolisthesis of L4 on L5. There is moderately decreased disc h eight at L1-L2. There is multilevel facet joint osteoarthritis, severe bilaterally at L4-L5 and L5-S1 . IMPRESSION: 1. Moderate lumbar spondylosis. Reviewed, dictated and finalized at location E. ROOM OPERATOR
--- NOTE | ~2023-08-08 | XR_ITS ---
EXAMINATION: XR hip RT min 2V DATE: 08/08/2023 16:25 INDICATION: Right hip pain. TECHNIQUE: 2 views of right hip were obtained. COMPARISON: None. FINDINGS: Bone alignment is normal. No fracture. There is mild right hip osteoarthritis. IMPRESSION: 1. Mild right hip osteoarthritis. Reviewed, dictated and finalized at location E. FENCE ERECTOR
== END ==
PROVIDERS: PCP Family Medicine; Visit Provider Family Medicine
DX: M47.896 Other spondylosis, lumbar region (principal); M16.11 Unilateral primary osteoarthritis, right hip
CPT/HCPCS: 72110; 73502

== ENCOUNTER 2023-08-16 15:34 | Outpatient (CLI) | payer OTHER, SELFPAY ==
[2023-08-16 19:01] LABS: Alanine Aminotransferase 22 U/L (6-35); Aspartate Amino Transferase 31 U/L (14-36)
== END 2023-08-16 15:35 | disposition home or self-care (01) ==
LOC: ANHGOSHLAB 15:38
PROVIDERS: PCP Neurological Surgery; Visit Provider Podiatrist Foot & Ankle Surgery
DX: B35.1 Tinea unguium (principal)
CPT/HCPCS: 36415; 84450; 84460

== ENCOUNTER → 2023-08-21 15:32 | Outpatient (CLI) | payer OTHER, SELFPAY ==
--- NOTE | ~2023-08-21 | MR_ITS ---
EXAMINATION: MR lumbar spine wo con DATE: 08/21/2023 16:13 INDICATION: Lumbar radiculopathy TECHNIQUE: Magnetic resonance imaging (MRI) of the lumbar spine was performed without intravenous con trast. Sequences included sagittal T2-weighted FSE, sagittal T2-weighted FS FSE, sagittal T1-weighted FSE, and axial T2-weighted FSE. COMPARISON: None FINDINGS: 5 degrees lumbar levocurvature. 2 mm anterolisthesis L4 on L5. Vertebral body heights are normal. T1 hyperintense hemangioma at the left side of S1. Marrow signal is otherwise normal. Mild to moderate d isc height loss at L1-L2 and mild disc height loss at L3-L4, L4-L5 and L5-S1. The conus medullaris te rminates at L2. There is normal signal in the caudal spinal cord. Paravertebral soft tissues are unre markable. The following disc levels are specifically discussed: T12-L1: Disc is mildly bulging. There is moderate bilateral facet joint osteoarthritis. There is no n eural foraminal stenosis. There is minimal central canal stenosis. L1-L2: Disc is bulging. There is mild bilateral facet joint osteoarthritis. There is minimal bilatera l neural foraminal stenosis. There is mild central canal stenosis. L2-L3: Disc is mildly bulging. There is mild bilateral facet joint osteoarthritis. There is mild bila teral neural foraminal stenosis. There is minimal central canal stenosis. L3-L4: Disc is mildly bulging. There is mild bilateral facet joint osteoarthritis. There is mild bila teral neural foraminal stenosis. There is no central canal stenosis. L4-L5: Disc is bulging with annular fissure. There is severe bilateral facet joint osteoarthritis. Th ere is mild bilateral, right greater than left. neural foraminal stenosis. There is mild central rosalio l stenosis. L5-S1: Disc is mildly bulging. There is moderate left and severe right facet joint osteoarthritis. Th ere is mild bilateral neural foraminal stenosis. There is no central canal stenosis. IMPRESSION: 1. Mild lumbar spondylosis. Reviewed, dictated and finalized at location A. D ACCOUNT MANAGER IMPRESSION: 1. Mild lumbar spondylosis.
== END ==
PROVIDERS: PCP Family Medicine; Visit Provider Family Medicine
DX: M47.26 Other spondylosis with radiculopathy, lumbar region (principal)
CPT/HCPCS: 72148

== ENCOUNTER 2023-09-17 08:25 | Outpatient (CLI) | payer OTHER, SELFPAY ==
--- NOTE | ~2023-09-17 | NM_ITS ---
EXAMINATION: NM mario stress w perfusion DATE: 09/17/2023 11:49 INDICATION: Chest pain TECHNIQUE: Rest images were obtained following intravenous administration of mCi Tc99m tetrofosmin (M yoview). The patient was infused intravenously with Lexiscan (Regadenoson). Then, mCi Tc99m tetrofosm in (Myoview) was administered intravenously, and stress images were obtained. Data was reconstructed into short axis and horizontal and vertical long axis SPECT images. Gated SPECT images were also obta ined. COMPARISON: None. FINDINGS: There is no definite reversible or fixed perfusion abnormality to suggest ischemia or infar ction. Likely artifactual small region of mild decreased activity at the mid anterolateral segment on the non gated rest and stress imaging which appears normal on the gated stress images. There is norm al left ventricular chamber size, wall motion and ejection fraction. Left ventricular ejection fract ion measures >70%. IMPRESSION: 1. Normal myocardial perfusion at rest and during stress. 2. Left ventricular ejection fraction measuring >70%. Reviewed, dictated and finalized at location A. SAW OPERATOR HELPER
--- NOTE | 2023-09-17 08:37 | ECHO_ITS ---
Patient Info Name: Ashlyn Edwards Age: 73 years : 1950 Gender: Female Ht: 66 in Wt: 265 lbs BSA: 2.43 m2 HR: 95 bpm BP: 122 / 74 mmHg Technical Quality: Fair Exam Date: 09/17/2023 9:02 AM Exam Location: Echo Lab Patient Status: Outpatient Admit Date: 09/17/2023 Staff Ordering Physician: Jh Tamayo DO Attending Provider: Jh Tamayo DO Referring Physician: Roni THACKER; Exam Type: CA echo doppler color flow Study Info Indications R06.00 - Dyspnea, unspecified R07.9 - Chest pain, unspecified Complete two-dimensional, color flow and Doppler transthoracic echocardiogram is performed. Summary 1. Complete two-dimensional, color flow and Doppler transthoracic echocardiogram is performed. 2. Left ventricular chamber dimension is normal. 3. Left ventricular systolic function is normal, estimated at 55-60%. 4. The left ventricular diastolic function is grade I diastolic dysfunction. 5. E/e' 9 is minimally elevated. 6. There is mild aortic valve sclerosis. 7. The mitral valve has mildly calcified annulus. Left Ventricle E/e' 9 is minimally elevated. Left ventricular chamber dimension is normal. Left ventricular systolic function is normal, estimated at 55-60%. The left ventricular diastolic function is grade I diastolic dysfunction. Right Ventricle Right ventricular systolic function is normal and with normal TAPSE 1.9 cm. Right ventricular chamber dimension is normal. Left Atria Left atrial chamber dimension is normal. Right Atria Right atrial chamber dimension is normal. Aortic Valve The aortic valve is trileaflet. There is mild aortic valve sclerosis. There is no aortic valve stenosis. There is no aortic valve regurgitation. Pulmonic Valve There is no pulmonic regurgitation. Mitral Valve The mitral valve has mildly calcified annulus. There is no mitral valve stenosis. There is no mitral valve regurgitation. Tricuspid Valve There is no tricuspid valve regurgitation. Pericardium/Pleural There is no pericardial effusion. Inferior Vena Cava Normal inferior vena cava with >50% collapse upon inspiration consistent with normal right atrial pressure, 5 mmHg. Aorta The aortic root size at the sinus of Valsalva is normal. Left Ventricular Outflow Tract Name Value Normal LVOT 2D LVOT Diameter 2.1 cm LVOT Doppler LVOT Peak Gradient 3 mmHg LVOT Mean Gradient 2 mmHg LVOT VTI 19 cm LVOT VTI/AV VTI Ratio 0.6 LVOT Stroke Volume 67 ml LVOT CO 4.9 l/min LVOT CI 2.0 l/min/m2 Pulmonic Valve Name Value Normal PV Doppler PV Peak Gradient 4 mmHg Mitral Valve Name Value Normal
--- NOTE | 2023-09-17 08:37 | EST_ITS ---
Patient Info Name: Ashlyn Edwards Age: 73 years : 1950 Gender: Female Ht: 66 in Wt: 265 lbs BSA: 2.43 m2 HR: 92 bpm BP: 177 / 80 mmHg Exam Date: 09/17/2023 10:35 AM Exam Location: Echo Lab Patient Status: Outpatient Admit Date: 09/17/2023 Staff Ordering Physician: Jh Tamayo DO Attending Provider: Jh Tamayo DO Exercise Technologist: Suzie Bacon RDCS Exercise Physician: Jh Tamayo DO Exam Type: CA stress mario w NM Study Info A regadenoson stress test was performed. Summary 1. 1. Negative lexiscan stress test for ischemic ST changes by ECG criteria. 2. 2. Baseline hypertension. 3. 3. Nuclear scan to follow and will be reported separately. Please correlate with it. 4. 4. Patient informed of the above results. Protocol: Lexiscan Stress ECG Details Stage: REST Duration (min): 2 min : 5 sec HR (bpm): 94 SBP (mmHg): 177 DBP (mmHg): 80 Stage: REST Duration (min): 18 min : 3 sec HR (bpm): 90 SBP (mmHg): 177 DBP (mmHg): 80 Stage: STAGE 1 Duration (min): 1 min : 0 sec HR (bpm): 107 SBP (mmHg): 192 DBP (mmHg): 46 Stage: RECOVERY Duration (min): 1 min : 0 sec HR (bpm): 102 SBP (mmHg): 192 DBP (mmHg): 46 Stage: RECOVERY Duration (min): 2 min : 0 sec HR (bpm): 99 SBP (mmHg): 192 DBP (mmHg): 46 Stage: RECOVERY Duration (min): 3 min : 0 sec HR (bpm): 103 SBP (mmHg): 177 DBP (mmHg): 69 Stage: RECOVERY Duration (min): 4 min : 0 sec HR (bpm): 96 SBP (mmHg): 177 DBP (mmHg): 69 Stage: RECOVERY Duration (min): 4 min : 7 sec HR (bpm): 98 SBP (mmHg): 177 DBP (mmHg): 69 Rest HR: 90 bpm Peak HR: 107 bpm Rest Sys BP: 177 mmHg Peak Sys BP: 192 mmHg Max Pred HR: 147 bpm % Max Pred HR: 73 % Target HR: 125 bpm Max RPP: 20,544 bpm*mmHg Termination Reason: Completed protocol Cardiac Symptoms: Shortness of breath Total Time: 1 min : 0 sec Rest Melendez BP: 80 mmHg Peak Melendez BP: 46 mmHg Total Dose: 0.4 mg Resting ECG Sinus rhythm, consider anterior infarct, consider inferior infarct. Stress ECG No ST changes. Arrhythmias None. Report Signatures
== END 2023-09-17 08:26 | disposition home or self-care (01) ==
LOC: ANHCARD 08:26
PROVIDERS: PCP Family Medicine; Visit Provider Internal Medicine Cardiovascular Disease
DX: R07.9 Chest pain, unspecified (principal)
CPT/HCPCS: 78452; 93017; 93306; A9502; J2785

== ENCOUNTER 2023-11-27 17:00 | Outpatient (RCR) | payer OTHER, SELFPAY ==
--- NOTE | 2023-09-11 16:20 | PTOPEVAL1 ---
Assessment and note entered by Tad Bailey Evaluation Information Assessment Status Evaluation Diagnosis low back pain Onset 09/10/23 Subjective Information Pt. reports that she has had worsening back pain for about a year. She reports that her pain radiates across her low back and down into the front of the thighs. She states that her pain is worsened with standing and walking. She reports that she can only stand for about 10 minute before having to sit down do to pain. Pt. reports that she lives alone and has trouble caring for her home due to her pain. She has trouble going up and down steps due to increasing pain with steps. She states that she uses ibuprofen daily, and it does reduce her pain slightly. Pt. reports her activity level is low and she spends most of her day sitting. She no longer drives, but has family to assist with IADL's. She reports that her goal is to decrease her low back pain. Reported Pain Level Pain Score 8: Self Report Assessment PT Clinical Summary Pt. is a 73 year old female who enters the clinic with low back pain. She presents with impaired postural awareness, impaired flexibility, l.e. weakness, abdominal weakness and pain on this date . Continued skilled PT is indicated in order to improve these areas to allow the pt. to be able to complete all IADL's with improved comfort and efficiency. Plan of Care Interventions Electrical Stimulation,Hot Pack/Cold Pack,Manual Therapy,Neuro Re-education,Therapeutic Activities, Therapeutic Exercise PT Services Indicated Yes Treatment Frequency and 1x/week x 5 visits Duration These treatments will address the objective and functional deficits as defined above. The patient will be advanced safely and appropriately in order for the patient to progress towards his/her prior level of function. Additional exercises will be introduced and as well as a comprehensive home exercise program upon discharge, if needed, ?to ensure carryover of functional gains achieved in the clinic. This treatment plan has been reviewed and agreement upon by the patient.
--- NOTE | 2023-10-02 13:39 | PCPTNOTE ---
The pt. called and cancelled her appointment for today. She did not provide a reason for cancellation. Tad Bailey, MPT
--- NOTE | 2023-10-16 17:47 | PTOPPROG ---
Assessment and note entered by Tad Bailey Evaluation Information Assessment Status Progress Diagnosis low back pain Onset 09/10/23 Subjective Information Pt. reports that therapy has been very helpful. She states that she no longer experiences 8-9/10 pain and her pain currently is at a 5/10. she states that pain has been a 7/10 at worst in the past week. she reports she is not currently using ibuprofen everyday. She states that she still has difficulty with standing for long durations and pain does normally increase with standing. She states that she would like to continue therapy to decrease her pain. Assessment PT Clinical Summary Mrs. Edwards has attended a total of 4 treatment sessions focusing on pain management, flexibility, postural control and trunk mobility. She presents with significant improvement in subjective reports of pain and her Oswestry score. Slight improvement are noted in trunk mobility and flexiblity. Given her progress and decreased pain we will continue skilled PT transitioning to more standing activities to assist with pt. goal of improving standing endurance with IADL's. Plan of Care Interventions Electrical Stimulation,Hot Pack/Cold Pack,Manual Therapy,Neuro Re-education,Patient/Caregiver Educati,Therapeutic Activities,Therapeutic Exercise PT Services Indicated Yes Treatment Frequency and 1x/week x 5 visits Duration These treatments will address the objective and functional deficits as defined above. The patient will be advanced safely and appropriately in order for the patient to progress towards his/her prior level of function. Additional exercises will be introduced and as well as a comprehensive home exercise program upon discharge, if needed, ?to ensure carryover of functional gains achieved in the clinic. This treatment plan has been reviewed and agreement upon by the patient.
--- NOTE | 2023-11-27 17:26 | PTOPDC ---
Assessment and note entered by Tad Bailey Evaluation Information Assessment Status Discharge Diagnosis low back pain Onset 09/10/23 Subjective Information Pt. reports she is feeling much better than she did prior to starting PT. She reports pain levels at the low back are 5/10 today and that is about the worst she has been in a long time. She reports she is walking better, getting up from a chair better and able to move better in general. She reports that she is currently able to stand for 10-15 minutes before having to sit. She reports that she rarely has to use medication for pain, and was using medication daily before therapy. Reported Pain Level Pain Score 5: Self Report Assessment PT Clinical Summary Pt. has met all goals established at the initial evaluation. she is encouraged to continue with her HEP and will be discharged from our care at this time. Plan of Care PT Services Indicated No
== END 2023-11-28 09:20 | disposition home or self-care (01) ==
LOC: ANHPT 17:00
PROVIDERS: PCP Family Medicine; Visit Provider Family Medicine
DX: M54.50 Low back pain, unspecified (principal)
CPT/HCPCS: 97014; 97110; 97112; 97140; 97161; 97530; G0283

== ENCOUNTER 2024-01-23 15:07 | Outpatient (CLI) | payer OTHER, SELFPAY ==
[2024-01-23 19:27] LABS: Alanine Aminotransferase 18 U/L (6-35); Aspartate Amino Transferase 31 U/L (14-36)
== END 2024-01-23 15:08 | disposition home or self-care (01) ==
LOC: ANHGOSHLAB 15:09
PROVIDERS: PCP Family Medicine; Visit Provider Podiatrist Foot & Ankle Surgery
DX: B35.1 Tinea unguium (principal)
CPT/HCPCS: 36415; 84450; 84460

== ENCOUNTER 2024-03-11 08:16 | Outpatient (CLI) | payer OTHER, SELFPAY ==
[2024-03-11 09:13] LABS: Alanine Aminotransferase 18 U/L (6-35); Albumin Level 4.1 g/dL (3.5-5.1); Alkaline Phosphatase 101 U/L (38-126); Anion Gap 5 mmol/L (4-12); Aspartate Amino Transferase 26 U/L (14-36); Bilirubin,Total 0.6 mg/dL (0.2-1.3); Blood Urea Nitrogen 17 mg/dL (7-17); Calcium 9.1 mg/dL (8.4-10.2); Carbon Dioxide 31 mmol/L (22-30); Chloride 105 mmol/L (98-107); Cholesterol 224 mg/dL (0-200); Estimated Glomerular Filt Rate 40; Glucose 125 mg/dL (65-110); HDL Direct 42 mg/dL; Potassium 4.2 mmol/L (3.4-5.0); Sodium 141 mmol/L (137-145); Triglycerides 131 mg/dL (<150)
[2024-03-11 09:24] LABS: LDL Cholesterol Direct 128 mg/dL
[2024-03-11 09:27] LABS: Hemoglobin A1C 5.4 % (<5.7)
[2024-03-11 09:49] LABS: Creatinine Urine 202.4 mg/dL
[2024-03-11 09:50] LABS: Vitamin D 25 Hydroxy 35.2 ng/mL
[2024-03-11 09:56] LABS: Microalbumin Urine Random 14.2 mg/L (0-16.7)
[2024-03-11 10:17] LABS: Folic Acid 11.6 ng/mL (2.76->20)
== END 2024-03-11 08:17 | disposition home or self-care (01) ==
LOC: ANHLAB 08:19
PROVIDERS: PCP Family Medicine; Visit Provider Family Medicine
DX: E78.2 Mixed hyperlipidemia (principal); Z13.228 Encounter for screening for other metabolic disorders; E11.9 Type 2 diabetes mellitus without complications; E55.9 Vitamin D deficiency, unspecified; Z13.29 Encounter for screening for other suspected endocrine disorder; E53.8 Deficiency of other specified B group vitamins
CPT/HCPCS: 36415; 80053; 80061; 82043; 82306; 82607; 82746; 83036; 84443

== ENCOUNTER 2024-03-13 09:19 | Outpatient (CLI) | payer OTHER, SELFPAY ==
--- NOTE | 2024-03-13 14:52 | WPDPFTINT ---
PFT Procedure Performed PFT Procedure Performed Spirometry with Pre/Post Bronchodilator Plethysmography (Lung Vol) Diffusing Cap (DLCO) Flow Vol Loop PFT Interpretation This is a pulmonary function test with pre and post-bronchodilator spirometry, plethysmography and diffusing capacity. The test was performed and results interpreted in accordance with the 2019 and 2005 ATS/ERS Task Force guidelines respectively using the Global Lung Function Initiative-2012 reference equations. Patient demonstrated good effort and cooperation. Reproducibility criteria were met. The quality of the pre bronchodilator spirometry maneuver was Grade A and post bronchodilator spirometry maneuver was Grade A. Findings: Spirometry: There is decreased maximal expiratory airflow at all lung volumes with concave expiratory flow tracing. The contour the inspiratory flow tracing is normal. The pre bronchodilator FVC is 2.65 L, 89% predicted. The pre bronchodilator FEV1 is 1.81 L, 79% predicted. The pre bronchodilator FEV1: FVC ratio 68%. The post bronchodilator FVC is 2.71 L, representing a 2% increase. The post bronchodilator FEV1 is 1.88 L, representing a 4% increase. The post bronchodilator FEV1: FVC ratio 69%. Plethysmography: The total lung capacity is 5.10 L, 95% predicted. The functional residual capacity is 2.61 L, 84% predicted. The residual volume is 2.45 L, 104% predicted. Diffusing capacity: The diffusing capacity unadjusted for hemoglobin and carboxyhemoglobin is 17.3, 82% predicted. The diffusing capacity adjusted for alveolar volume is 4.36, 105% predicted. Impression: The spirometry is normal without evidence of an obstructive abnormality. There is no significant improvement after inhaling a single dose of albuterol. The lung volumes are normal. The diffusing capacity is normal. There are no prior studies for comparison
== END 2024-03-13 09:20 | disposition home or self-care (01) ==
PROVIDERS: PCP Family Medicine; Visit Provider Family Medicine
DX: R06.09 Other forms of dyspnea (principal)
CPT/HCPCS: 94060; 94726; 94729

== ENCOUNTER 2024-03-16 08:51 | Outpatient (CLI) | payer OTHER, SELFPAY ==
[2024-04-07 14:37] VITALS: BMI 44.4
--- NOTE | 2024-04-07 14:37 | WPDHOMESLEEP ---
Sleep Study - Home Unattended Date of Study: 03/16/24 Ordering Provider: Juan Luis Webster DO Interpreting Provider: Sharda Page DO Home Sleep Study Type: Watch PAT Height: 1.68 m Weight: 124.738 kg Body Mass Index: 44.4 Neck Circumference (inches): 18.5 [place]: 10 Reason for Sleep Study Daytime hypersomnia Sleep History The patient is a 74-year-old female that had a sleep study ordered by her primary care physician for evaluation of sleep apnea. She constantly has trouble sleeping when she has a cold. She occasionally wakes up gasping for air throughout the night. She denies having breathing problems at night observed by herself or others. She rarely sweats excessively at night. She rarely has heart palpitations or irregular heartbeats during the night. She occasionally falls asleep during the day. She denies sleep paralysis, cataplexy and hypnagogic / hypnopompic hallucinations. She denies having trouble at school or work due to sleepiness. She denies feeling afraid of going to sleep. She rarely has nightmares. She constantly remembers her dreams. She denies having thoughts racing through her mind. She constantly feels sad, depressed and anxious. She occasionally has muscular tension. She constantly notices parts of her body jerk. She denies kicking during the night. She denies having crawling and aching feelings in her legs and denies having leg pain during the night. She constantly grinds her teeth during sleep but never awakens with morning jaw pain. She is frequently bothered by pain during the day and constantly awakened by pain during the night. She constantly wakes up feeling stiff in the morning. She constantly wakes up with sore or achy muscles. She constantly wakes up with pain in the neck, spine and other joints. She goes to bed at 9:00 p.m. on both weekdays and weekends. It takes her 10 minutes to fall asleep. She wakes up twice throughout the night for unknown reasons and will watch television until she is able fall back asleep. She wakes up at 2:00 a.m. on both weekdays and weekends. She typically gets 4 hours of sleep per night. She will stay in bed for 1 hour after waking up in the morning. She denies consuming any caffeinated beverages within 2 hours of bedtime. She denies engaging in physical exercise before bedtime. She will watch television before falling asleep. She will take naps in afternoon or the evening and they are refreshing. She does consume caffeinated beverages throughout the day. She denies tobacco, alcohol and recreational drug use. [facility] Past Medical History Medical History Bipolar disorder, current episode mixed, moderate Chronic kidney disease due to diabetes mellitus Chronic kidney disease, stage III (moderate) Essential hypertension Mixed hyperlipidemia Morbid obesity Obesity (BMI 35.0-39.9 without comorbidity) Plantar fasciitis Schizoaffective disorder, bipolar type Type 2 diabetes mellitus with kidney complication, without long-term current use of insulin Family History Family History Mother Diabetes mellitus, Onset Age: 49 Father Patient's father is , Onset Age: 70 Social History Social History Social History: Caffeine- soda/coffee Smoking status: Never smoker Second hand tobacco smoke exposure: No Alcohol intake: never Substance use: never Substance use type: does not use Do You Feel Safe in your Home?: Yes Lack of Transportation: YES Lack of Food: Sometimes True Current Housing: I Have Housing Concerned About Future Housing: No Difficulty Paying Gas/Electric Bills: No Difficulty Paying for Meds: YES Currently Unemployed: No Education: High School Diploma/GED Difficulty w/ Childcare or Family Care: No Medications
== END 2024-03-17 14:37 | disposition home or self-care (01) ==
LOC: ANHCSM 08:51
PROVIDERS: PCP Family Medicine; Visit Provider Family Medicine
DX: G47.10 Hypersomnia, unspecified (principal); G47.33 Obstructive sleep apnea (adult) (pediatric)
CPT/HCPCS: 95800

== ENCOUNTER 2024-07-07 15:17 | Outpatient (CLI) | payer OTHER, SELFPAY ==
--- NOTE | ~2024-07-07 | MM_ITS ---
EXAMINATION: MM screening ernest[facility] BI w mckenzie HISTORY: Screening TECHNIQUE: Craniocaudal and mediolateral oblique 3-D tomosynthesis images were obtained and synthetic 2-D images were generated. CAD analysis was submitted and interpreted. COMPARISON: Comparison to multiple prior studies sequentially, with oldest reviewed study dated 06/30. BREAST PARENCHYMAL COMPOSITION: Not dense: There are scattered areas of fibroglandular density. FINDINGS: There is no evidence of suspicious mass, calcification, or architectural distortion to sugg est malignancy in either breast. There has been no suspicious interval change. IMPRESSION: 1. No mammographic evidence of malignancy. 2. Recommend routine screening mammography in one year. BI-RADS Category 1: Negative Reviewed, dictated and finalized at location B.
== END 2024-07-07 15:18 | disposition home or self-care (01) ==
LOC: ANHIMG 15:17
PROVIDERS: PCP Family Medicine; Visit Provider Family Medicine
DX: Z12.31 Encounter for screening mammogram for malignant neoplasm of breast (principal)
CPT/HCPCS: 77063; 77067

== ENCOUNTER → 2025-02-18 11:01 | Outpatient (CLI) | payer OTHER, SELFPAY ==
--- NOTE | ~2025-02-18 | XR_ITS ---
Right Knee Technique: AP, lateral, and oblique views were obtained. Clinical History: Pain Findings: No fracture or dislocation is seen. Osseous alignment is anatomic. Joint spaces are preserv ed without degenerative or erosive change. Soft tissues are unremarkable. No joint effusion is seen. Impression: Unremarkable right knee radiographs. Reviewed, dictated and finalized at location . Impression: Unremarkable right knee radiographs.
== END ==
LOC: EXPCRAD 11:02
PROVIDERS: PCP Family Medicine; Visit Provider Family Medicine
DX: M25.561 Pain in right knee (principal); R29.6 Repeated falls
CPT/HCPCS: 73564

== ENCOUNTER → 2025-05-24 10:09 | Outpatient (CLI) | payer OTHER, SELFPAY ==
--- NOTE | ~2025-05-24 | XR_ITS ---
EXAMINATION: XR lumbar spine min 4V DATE: 05/24/2025 11:01 INDICATION: [place] TECHNIQUE: 5 images of the lumbar spine were obtained. COMPARISON: None. FINDINGS: There is bowel gas and stool projecting over the pelvis which limits evaluation. There are a few less than 1.0 cm calcifications projecting over the pelvis which may represent phleboliths, however, a distal ureteral stone or bladder stone or possible. Vascular calcifications are noted. Bones appear osteopenic. Lumbar vertebral body heights are within normal limits. No compression fracture in the lumbar spine. Moderate joint space narrowing at the L1-L2 and L5-S1 levels. Moderate degenerative change in the lower lumbar facet joints. Grade 1 anterolisthesis of L4 on L5. Bones appear osteopenic IMPRESSION: 1. No compression fracture in the lumbar spine. 2. Moderate degenerative change in the lumbar spine most prominent at the L5-S1 level. 3. Grade 1 anterolisthesis of L4 on L5. If symptoms persist or worsen, consider an MRI of the lumbar spine Reviewed, dictated and finalized at location Q.
--- NOTE | ~2025-05-24 | XR_ITS ---
XR femur LT min 2V 05/24/2025 11:00 Indication: Pain in the thighs Procedure: 2 views left femur Comparison: No prior studies for comparison. Findings: No fracture, subluxation or dislocation. There is mild osteoarthritis of the left hip and knee. No focal soft tissue abnormality. No foreign bodies. Impression: 1: Mild polyarticular osteoarthritis. Reviewed, dictated and finalized at location O. Impression: 1: Mild polyarticular osteoarthritis.
--- NOTE | ~2025-05-24 | XR_ITS ---
XR hip BI 2V w AP pelvis 05/24/2025 11:00 Indication: Hip pain Procedure: AP pelvis and 2 views each hip Comparison: 08/08/2023 Findings: Pelvic rings intact. Mild osteoarthritis of the hips. Sacral foramen are symmetric. No fracture, subluxation or dislocation. Impression: 1: Mild osteoarthritis of the hips. Reviewed, dictated and finalized at location O. Impression: 1: Mild osteoarthritis of the hips.
--- NOTE | ~2025-05-24 | XR_ITS ---
Clinical history:Pain EXAM:X-ray femur right minimum 2 views TECHNIQUE:4 images of the right femur were obtained. Comparisons:Right hip x-ray 08/08/2023 FINDINGS: Mild degenerative change in the right hip. Bone mineralization is within normal limits. No fracture. No dislocation of the right femur. There is bowel gas and stool projecting over the pelvis which limits evaluation. There are a few less than 1.0 cm calcifications projecting over the pelvis which may represent phleboliths, however, a distal ureteral stone or bladder stone or possible. IMPRESSION: No fracture or dislocation of the right femur. Mild degenerative change about the right hip. If symptoms persist or worsen, consider a short-term follow-up study or additional imaging for further assessment. Reviewed, dictated and finalized at location Q. IMPRESSION: No fracture or dislocation of the right femur. Mild degenerative change about the right hip. If symptoms persist or worsen, consider a short-term follow-up study or additio nal imaging for further assessment.
== END ==
LOC: EXPCRAD 10:11
PROVIDERS: PCP Family Medicine; Visit Provider Family Medicine
DX: M51.369 Other intervertebral disc degeneration, lumbar region without mention of lumbar back pain or lower extremity pain (principal); M16.0 Bilateral primary osteoarthritis of hip
CPT/HCPCS: 72110; 73521; 73552

== ENCOUNTER 2025-06-11 09:14 | Outpatient (CLI) | payer OTHER, SELFPAY ==
--- OUTSIDE RECORDS SUMMARY | 2010-01-10 04:00 | XMS_ITS | Continuity of Care Document ---
Author Organization [facility] Address [address] [place] [address] Phone Care Team Providers Care Athletic Director Name Role Phone Frank Sutherland Unavailable Unavailable Procedures Procedure Date Office/outpatient Visit, Est Post-op Follow-up Visit Post-op Follow-up Visit Post-op Follow-up Visit Post-op Follow-up Visit Post-op Follow-up Visit Post-op Follow-up Visit Remove Cataract, Insert Lens Post-op Follow-up Visit Echo Exam Of Eye-Professional Jun--200 9 Post-op Follow-up Visit Remove Cataract, Insert Lens Office Consultation Echo Exam Of Eye Miscellaneus Advance Directives Directive Yes / No Effective Date File Name No Information Encounters Encounter Description Practice Location Reason(s) For Visit Diagnoses Date Provider Providers Copied on Encounter Office/outpati ent Visit, Est [facility], [id number] [place] [address] [address], [place], [place], [id number], [place] tel:[phone] SEC [facility] No Information 3-201 0 Koko Marie. [address] [facility] [address], [place], [address], [place]. tel:[phone] [facility], [address], [place], [place], [id number], [place] tel:[phone] [facility] No Information Richard-1 2-201 0 Krishnasamy Frank. [facility], [place], [place], [facility], [place]. tel:[phone] [facility], [address], [place], [place], [id number], [place] tel:[phone] [facility] No Information Richard-0 6-201 0 Rubi OD Taco. [facility] , [address], [place], [place], [facility], [place]. tel:[phone] [facility], [address] [place] [address] [address], [place], [place], [id number], [place] tel:[phone] [facility] [place] No Information Dec-2 3-200 9 Rubi OD Taco. [address] [place], [place] [address]ate Center , [address], [place], [facility], [place]. tel:[phone] [facility], [address] [place] [address] [address], [place], [place], [id number], [place] tel:[phone] [facility] [place] No Information Nov-1 7-200 9 Krishnasamy Frank. [facility], [place], [facility], [place]. tel:[phone] [facility], [address] [place] [address] [address], [place], [place], [id number], [place] tel:[phone] [facility] [place] No Information Oct-2 0-200 9 Krishnasamy Frank. [address] [place], [place] [address]ate [facility], [place], [facility], [place]. tel:[phone] [facility], [address], [place], [place], [id number], [place] tel:[phone] SEC [facility] No Information Oct-1 6-200 9 Krishnasamy Frank. [address] [facility] [address], [place], [address], [place]. tel:[phone] [facility], [address] [place] [address] [address], [place], [place], [id number], [place] tel:[phone] [facility] No Information Oct-1 5-200 9 Krishnasamy Frank. [address] [facility], [place], [address], [place]. tel:[phone] [facility], [address] [place] [address] [address], [place], [place], [id number], [place] tel:[phone] [facility] [place] No Information Oct-1 3-200 9 Krishnasamy Frank. [address] [facility] [place] [address], [place], [address], [place]. tel:[phone] Referring Provider: John Zhu, [address] [place] [address], [address]. tel:[phone] [facility], [address] [place] [address] [address], [place], [place], [id number], [place] tel:[phone] [facility] [place] No Information Oct-0 6-200 9 Krishnasamy Frank. [address] [facility] [place] [address], [place], [address], [place]. tel:[phone] [facility], [address] [place] [address] [address], [place], [place], [id number], [place] tel:[phone] [facility] No Information Oct-0 5-200 9 Krishnasamy Frank. [address] [facility], [place], [address], [place]. tel:[phone] Office Consultation [facility], [address] [place] [address] [address], [place], [place], [id number], [place] tel:[phone] SEC [facility] No Information Sep-2 9-200 9 Krishnasamy Frank. [address] [employer] [address], [address], [place]. tel:[phone] Referring Provider: John Zhu, [facility] [place], [address]. tel:[phone] Family History Family Member Type Diagnosis Age At Onset No Information Payers Payer name Insurance type Covered libertarian ID Authoriza tion(s) No Information Social History Type Description Quantity Date Captured Comments Sex Female Smoking Status No Information Chief Complaint And Reason For Visit No Information Reason For Referral Reason For Referral No Information History Of Present Illness Encounter Date Complaint History Of Prese nt Illness No Information Functional Status Date Functional Assessmen t No Information Instructions Date Instruction Additional Infor mation No Information Assessments Type Assessment Date No Information Patient Care Teams Name Effective Dates (start - stop) Status Members No Information
--- NOTE | ~2025-06-11 | DEXA_ITS ---
Bone Density Report Name: HANNA HAYDEN Age: 75 Sex: Female Ethnicity: White Date of : 1950 Indication: postmenopausal; screening for osteoporosis; height loss; hysterectomy; Referring Provider: YESSICA STEVENS Study: Bone densitometry was performed. Exam Date: June 11, 2025 Accession number: [id number] Bone Density: Region BMD T-score Z-score Classification AP Spine(L1-L4) 1.011 -0.3 2.1 Normal Femoral Neck (Left) 0.665 -1.7 0.4 Osteopenia Total Hip (Left) 0.972 0.2 2.0 Normal Femoral Neck (Right) 0.689 -1.4 0.7 Osteopenia Total Hip (Right) 0.938 0.0 1.8 Normal Total Hip Mean 0.955 0.1 1.9 Normal World Health Organization criteria for BMD impression classify patients as: Normal (T-score at or above -1.0), Osteopenia (T-score between -1.0 and -2.5), or Osteoporosis (T-score at or below -2.5). 10-year Fracture Risk(1): Major Osteoporotic Fracture 10% Hip Fracture 2.1% Reported Risk Factors: [place] (), Neck BMD=0.665, BMI=39.3 (1) FRAX(R) Version 3.08. Fracture probability calculated for an untreated patient. Fracture probability may be lower if the patient has received treatment. Previous Exams: Region Exam Age BMD T-score BMD Change BMD Change Date g/cm2 vs Baseline vs Previous AP Spine (L1-L4) 06/11/2025 75 1.011 -0.3 -0.011 (-1.0%) -0.011 (-1.0%) 01/28/2017 66 1.022 -0.2 Total Hip(Left) 06/11/2025 75 0.972 0.2 -0.067 (-6.4%) -0.067 (-6.4%) 01/28/2017 66 1.038 0.8 Total Hip(Right) 06/11/2025 75 0.938 0.0 -0.091 (-8.8%) -0.091 (-8.8%) 01/28/2017 66 1.029 0.7 *Denotes significance at 95% confidence level, LSC for AP Spine = 0.022 g/cm2, LSC for Total Hip = 0.027 g/cm2 Clinical Information Provided by Patient: Has the following medical conditions: Hysterectomy Patient maximum height was 66 Menopause Age: 29 No regular weight bearing exercise Drinks caffeinated beverages Onset of menses at age 12 Number of children 3 Impression: The patient has low bone mass, based on the Left Femoral Neck T-score. The patient has an estimated ten-year risk of hip fracture of 2.1% and an estimated ten-year risk of major fracture of 10%, based on the WHO FRAX algorithm. The BMD for the Total Hip(Left) decreased, changing by -6.4% since the last DXA exam. The BMD for the Total Hip(Right) decreased, changing by -8.8% since the last DXA exam. Discussion: BONE DENSITY IS LOW AT ONE OR MORE SKELETAL SITES. This patient's lowest T-score is low at one or more skeletal sites. It meets the World Health Organization's (WHO) criteria for ?low bone mass? (T-score between -1.0 and -2.5). The patient's 10-year risk of fracture as calculated by FRAX is less than the threshold where pharmacological therapy is recommended by the National Osteoporosis Foundation (NOF). However, all treatment decisions require clinical judgment and consideration of individual patient factors, including patient preferences, comorbidities, previous drug use, risk factors not captured in the FRAX model (e.g., frailty, falls, vitamin D deficiency, increased bone turnover, interval significant decline in bone density) and possible under or overestimation of fracture risk by FRAX. The patient should follow a healthful lifestyle (good nutrition with adequate calcium and vitamin D, and appropriate weight-bearing exercise). Follow-Up: Consider repeating this study in 2 years to reassess this patient's status, or sooner if there is some new clinical indication. Reported by: BRYNN on 06/11/2025 9:52:00 AM. Reviewed, dictated and finalized at location A.
--- OUTSIDE RECORDS SUMMARY | 2025-06-11 09:36 | XMS_ITS | Patient Health Record ---
Author Organization [facility] As behaview Address [address] [place] [address] Care Team Providers Care Veneer Sorter Name Role Phone Vibha Valencia DO Primary Care Provider Lilliam Yañez Unavailable [phone] Allergies No Known Allergies Reason For Referral No Information Medications Medication SIG (Take, Route, Frequency, Duration) Notes Start Date End Date Status Clotrimazole 1% Cream External 10/15/2023 Active Benzonatate 100 MG Capsule Oral 10/15/2023 Not-Taking Atorvastatin Calcium 10 MG Tablet Oral 10/15/2023 Active prednisoLONE Acetate 1 % Suspension Ophthalmic 10/15/2023 Not-Taking Phenazopyridine HCl 100 MG Tablet Oral 10/15/2023 Active Terbinafine HCl 250 MG Tablet Oral 10/15/2023 Unknown Paxlovid (300/100) 20 x 150 MG & 10 x 100MG Tablet Therapy Pack Oral *Reorder from [facility] for eRx and Interaction Alerts* 10/15/2023 Active Benzonatate 200 MG Capsule Oral 10/15/2023 Not-Taking Ozempic (2 MG/DOSE) 8 MG/3ML Solution Pen-injector Subcutaneous *Reorder from [facility] for eRx and Interaction Alerts* 10/15/2023 Active Vitamin D3 Super Strength 50 MCG (1999 UT) Capsule Oral 10/15/2023 Active ALPRAZolam 0.5 MG Tablet Oral 10/15/2023 Unknown Ofloxacin 0.30% Solution Ophthalmic 10/15/2023 Active Cetirizine HCl 10 MG Tablet Oral 10/15/2023 Active Nortriptyline HCl 50 MG Capsule 1 capsule Oral Once a day; Duration: 90 days Not-Taking Atropine Sulfate 1 % Solution Ophthalmic 10/15/2023 Active Ozempic (0.25 or 0.5 MG/DOSE) 2 MG/3ML Solution Pen-injector Subcutaneous *Pick strength-form from [facility] for eRX* 10/15/2023 Not-Taking Ozempic (1 MG/DOSE) 4 MG/3ML Solution Pen-injector Subcutaneous *Pick strength-form from [facility] for eRX* 10/15/2023 Not-Taking Ingrezza 60 MG Capsule 1 capsule Orally bedtime; Duration: 30 days PA approved 10/25/24- 11/24/25 05/27/2025 Active Nystatin 619303 UNIT/GM Ointment External 10/15/2023 Active Memantine HCl 10 MG Tablet 1 tablet Orally twice a day; Duration: 90 days 05/27/2025 Active Propranolol HCl 10 MG Tablet Oral 10/15/2023 Active GEMTESA 75 MG TABLET *Reorder fr [facility] for eRx and Interaction Alerts* 10/15/2023 Active FLUZONE HIGH-DOSE QUAD (PF) 240 MCG/0.7 ML IM SYRINGE *Reorder from [facility] for eRx and Interaction Alerts* 10/15/2023 Active Nitrofurantoin Monohyd Macro 100 MG Capsule Oral 10/15/2023 Active Fenofibrate 160 MG Tablet Oral 10/15/2023 Active Ingrezza 60 MG Capsule 1 capsule Orally Once a day; Duration: 30 days d/c 80 mg dose 05/12/2025 Active Nortriptyline HCl 50 MG Capsule 1 capsule Oral bedtime; Duration: 90 days 05/27/2025 Active Naproxen 500 MG Tablet Oral 10/15/2023 Active Citalopram Hydrobromide 20 MG Tablet 1 tablet Oral Once a day; Duration: 90 days 05/27/2025 Active Myrbetriq 50 MG Tablet Extended Release 24 Hour Oral 10/15/2023 Active ARIPiprazole 10 MG Tablet 1 tablet every night Orally Once a day; Duration: 90 days d/c 15 mg dose 05/27/2025 Active Glimepiride 1 MG Tablet Oral 10/15/2023 Active traZODone HCl 100 MG Tablet 1 tablet Oral bedtime; Duration: 90 days 05/27/2025 Active Pioglitazone HCl 30 MG Tablet Oral 10/15/2023 Active Rosuvastatin Calcium 10 MG Tablet Oral 10/15/2023 Active CHOLECALCIFEROL (VITAMIN D3) 50 MCG (2,000 UNIT) CAPSULE *Reorder from [facility] for eRx and Interaction Alerts* 10/15/2023 Active Immunizations Vaccine Route Administration Date Status Comme nts Influenza virus vaccine, quadrivalent (IIV4), split virus, 0.25 mL dosage Unknown 07/22/2015 Administered Influenza virus vaccine, quadrivalent (IIV4), split virus, 0.25 mL dosage Unknown 07/26/2015 Administered Influenza, high-dose seasona l, quadrivalent, preservative free >65 yrs Unknown 08/22/2020 Administered Influenza, seasonal, injecta ble, preservative free, 3 yrs and above Unknown 11/08/2014 Administered Pfizer Biontech Covid-19 Vac cine 2nd dose Unknown 12/07/2020 Administered Pfizer [employer] Covid-19 Vac cine 2nd dose Unknown 12/28/2020 Administered Pfizer [employer]ion[employer] Covid-19 Vac cine 2nd dose Unknown 09/26/2021 Administered Social History Tobacco Use: Social History Observation Description Date Details (start date - stop date) Never Smoker NA - NA Sex Assigned At : Social History Observation Description Sex Assigned At Female Social History Household: Social Info Question Answer Notes Household Marital status: Number of adults in household: 1 Drug/Alcohol: Social Info Question Answer Notes Drugs Have you used drugs other than those for medical reasons in the past 12 months? No AUDIT-C (Standard) Did you have a drink containing alcohol in the past year? No Points 0 Interpretation Negative Tobacco Use: Social Info Question Answer Notes Tobacco Control (Standard) Tobacco use: Nonsmoker Additional Findings: Tobacco non-user Current no nsmoker Additional Details Category Social Info Options Details Migrated Social History Migrated Social History Alcohol Intake: None 04/29/2020,Tobacco Years: Smoker - current status unknown 04/15/2023 Drug/Alcohol: Do you smoke marijuana? Den ies Do you drink alcohol? No Problems Problem Type SNOMED Code ICD Code Onset Dates Problem Status W/U Status Risk Notes Problem Paranoid schizophrenia (08253864) Paranoid schizophrenia (F20.0) 10/15/19 24 Active confirmed Problem Moderate recurrent major depression (66458180) Major depressive disorder, recurrent, moderate (F33.1) 01/16/20 24 Active confirmed Problem Generalized anxiety disorder (61601819) Generalized anxiety disorder (F41.1) 10/15/19 Active confirmed Problem Insomnia disorder related to another mental disorder (14491952) Insomnia due to other mental disorder (F51.05) 10/15/19 Active confirmed Problem Drug-induced tardive dystonia (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.01) 10/15/19 Active confirmed Problem Screening for cardiovascular system disease (173729482) Encounter for screening for cardiovascular disorders (Z13.6) Active confirmed Problem Long-term current use of drug therapy (217641784) Other longterm (current) drug therapy (Z79.899) 10/15/19 Active confirmed Problem Depression Screening (264490167) Encounter for screening for depression (Z13.31) Active confirmed Problem Memory impairment (716734997) Memory impairment (R41.3) Active confirmed Vital Signs Heart Rate 85 /min 01/04/2025 Respiratory Rate 16 /min 04/05/2025 Height-cm 167.64 cm 05/27/2025 Blood pressure diastolic 71 mm Hg 01/04/2025 Weight-kg 101.97 kg 05/27/2025 Height 66.00 in 05/27/2025 Blood pressure systolic 131 mm Hg 01/04/2025 Weight 224.8 lbs 05/27/2025 BMI 36.28 kg/m2 05/27/2025 Encounters Encounter Location Date Provider Diagnosis [facility] [address] [facility] [address] [place] [address] 10/12/2024 Lilliam Domingo Paranoid schizophren ia F20.0 ; Generalized anxiety disorder F41.1 ; Major depressive disorder, recurrent, moderate F33.1 ; Insomnia due to other mental disorder F51.05 ; Drug induced subacute dyskinesia G24.01 ; Other longterm (current) drug therapy Z79.899 and Memory impairment R41.3 [facility] [address] [place] [address] 01/04/2025 Lilliam Domingo Paranoid schizophren ia F20.0 ; Generalized anxiety disorder F41.1 ; Major depressive disorder, recurrent, moderate F33.1 ; Insomnia due to other mental disorder F51.05 ; Drug induced subacute dyskinesia G24.01 ; Other surgeon's assistant (current) drug therapy Z79.899 ; Memory impairment R41.3 ; Encounter for screening for cardiovascular disorders Z13.6 and Encounter for screening for depression Z13.31 [place] [address] [facility] [address] [place] [address] 04/05/2025 Lilliam Thery Paranoid schizophren ia F20.0 ; Generalized anxiety disorder F41.1 ; Major depressive disorder, recurrent, moderate F33.1 ; Insomnia due to other mental disorder F51.05 ; Drug induced subacute dyskinesia G24.01 ; Other longterm (current) drug therapy Z79.899 ; Memory impairment R41.3 ; Encounter for screening for cardiovascular disorders Z13.6 ; Encounter for screening for depression Z13.31 and Negative depression screening Z13.[address] [address] 05/27/2025 Lilliam Thery Paranoid schizophren ia F20.0 ; Generalized anxiety disorder F41.1 ; Insomnia due to other mental disorder F51.05 ; Drug induced subacute dyskinesia G24.01 ; Other surgeon's assistant (current) drug therapy Z79.899 ; Memory impairment R41.3 ; Encounter for screening for cardiovascular disorders Z13.6 ; Encounter for screening for depression Z13.31 and Negative depression screening Z13.31 [facility] [address] [address] 10/08/2024 Lilliam Thery Major depressive disorder, recurrent, moderate F33.1 [facility] [address] [address] 11/17/2024 Lilliam Thery Drug induced subacut e dyskinesia G24.01 [facility] [address] [facility] [address] [place] [address] 11/24/2024 Lilliam Thery Drug induced subacut e dyskinesia G24.01 [place] [address] [facility] [address] [place] [address] 11/24/2024 Lilliam Thery Drug induced subacut e dyskinesia G24.01 [place] [address] [address] 11/26/2024 Lilliam Thery [place] [address] [place] [address] 12/02/2024 Lilliam Domingo [facility] [address] [place] [address] 05/12/2025 Lilliam Domingo Drug induced [facility]acut e dyskinesia G24.01 [facility] [address] [place] [address] 05/12/2025 Lilliam Domingo Assessments Encounter Date Diagnosis (ICD Code) Assessment Notes Treatment Notes Treatment Clinical Notes Section Notes 11/24/2024 Drug induced subacute dyskinesia (ICD-10 - G24.01) 11/24/2024 Drug induced subacute dyskinesia (ICD-10 - G24.01) Electronic Prior Authorization was requested for Ingrezza 40 MG Capsule. Provider can order medication once approval received. 10/08/2024 Major depressive disorder, recurrent, moderate (ICD-10 - F33.1) Electronic Prior Authorization was requested for Austedo XR 12 MG Tablet Extended Release 24 Hour. Provider can order medication once approval received. 10/12/2024 Paranoid schizophrenia (ICD-10 - F20.0) Discussed the importance of medication adherence to prevent relapse and avoidance of substance misuse with patient. 1. Schizophrenia - Educated on all medications, benefits, side effects, risk, and mental health, depression anxiety, and mood d/o, movement d/o, and schizophrenia, psychosis, delusions, paranoia, compliance with medications and appointments hx Terbinafine 250 mg for feet 90 pills spoke with pharmacist at [facility], able to take rx with Abilify discuss and educated on all rx will decrease Abilify 15 mg at bedtime monitor for psychosis delsuions, paranoia and depression patient reported doing better monitor for psychosis, paranoia, delusions obtain labs PCP AIMS= 5 10/15/23 AIMS= 16 10/12/24 SLUMS= 23 on 10/12/24 patient requested to be seen 5-6 months instead of 3 months r/t stable on rx and educated will be able to sooner if needed 2. Mild recurrent major depression -take Celexa 20 mg daily set alarms to take medicationsrefer to therapy - refused SSRI side effects discussed including but not limited to, gastric upset, nausea, vomiting, diarrhea and/or constipation, weight changes, sexual side effects including loss of libido, increased suicidal thoughts/behaviors in children and young adults, and serotonin syndrome.Second generation antipsychotics (SGAs) have metabolic syndrome issues with weight gain, increase in prolactin, increased waist circumference, increased lipids, and increased glucose. Thus routine monitoring of weight, metabolic labs, etc. is indicated. A general rank ordering of antipsychotics that have the greatest to the least risk of metabolic effects is olanzapine, quetiapine, risperidone, ziprasidone, and aripiprazole. However, weight gain can occur with all of these drugs and considerable variability exists among patients receiving the same drug regarding the risk of metabolic effects. Anti-psychotic agents not only increase the risk of metabolic disorder, they also increase the risk of CVA, akathisia, and movement disorders including EPS or tardive dyskinesia (more common with first generation antipsychotics) and more. 3. 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 Tardive dyskinesia -AIMS COMPLETED = 7 on 12/01/20 AIMS = 16 reported has mouth movement and hand shakes still AIMS- 5 10/15/23 AIMS= 16 10/12/24 SLUMS= 23 10/12/24 AIMS= 16 off rx 5 months 10/12/24 PA for Austedo If needed- educated on rx PA denied D/C Austedo XR 24 MG DAILY- not taken in 5 months Add Ingrezza 40 mg daily in am samples given educated on rx Tardive Dyskinesia Dgnostic criteria include history of the use of neuroleptic medication for at least three months. [Or one month in patients 60 years of older] sign symptoms develop during exposure to neuroleptic medication Signs a symptoms include abnormal, involuntary movements of tongue, jaw, trunk, and extremities. Pharmacy: [facility]- 6. memory issues SLUMS= 23 10/12/24 DISCUSS SLUMS and medications options discuss and educated on medicationa nd patient would like rx will add Namenda 5 mg twice a day 7. Long-term drug therapy Discussion NotesOne in a hundred people will develop schizophrenia, about 75% of people have relapses and continued disability, and a third fail to respond to standard treatment. Positive symptoms include auditory hallucinations, delusions, and thought disorder. Negative symptoms have not been consistently improved by any treatment. Standard treatment of schizophrenia is with antipsychotic drugs yet these can cause adverse effects such as sedation. Behavioral interventions, compliance therapy, and psych educational interventions may improve adherence to antipsychotic medication compared to usual care. 11/17/2024 Drug induced subacute dyskinesia (ICD-10 - G24.01) CancelRx Response got Denied on 2024-11-18 09:28:45 for 'Ingrezza 40 MG Capsule'Pharmac y Notes: Unable to cancel prescription; prescription was transferred to another pharmacy. No prior dispensing 04/05/2025 Paranoid schizophrenia (ICD-10 - F20.0) Discussed the importance of medication adherence to prevent relapse and avoidance of substance misuse with patient. 1. Schizophrenia - Educated on all medications, benefits, side effects, risk, and mental health, depression anxiety, and mood d/o, movement d/o, and schizophrenia, psychosis, delusions, paranoia, compliance with medications and appointments discuss and educated on all rx decrease Abilify 10 mg at bedtime- stable monitor for psychosis delsuions, paranoia and depression patient reported doing better monitor for psychosis, paranoia, delusions obtain labs PCP AIMS= 5 10/15/23 AIMS= 16 10/12/24 SLUMS= 23 on 10/12/24 patient requested to be seen 5-6 months instead of 3 months r/t stable on rx and educated will be able to sooner if needed 2. depression -take Celexa 20 mg daily set alarms to take medications refer to therapy - refused SSRI side effects discussed including but not limited to, gastric upset, nausea, vomiting, diarrhea and/or constipation, weight changes, sexual side effects including loss of libido, increased suicidal thoughts/behaviors in children and young adults, and serotonin syndrome.Second generation antipsychotics (SGAs) have metabolic syndrome issues with weight gain, increase in prolactin, increased waist circumference, increased lipids, and increased glucose. Thus routine monitoring of weight, metabolic labs, etc. is indicated. A general rank ordering of antipsychotics that have the greatest to the least risk of metabolic effects is olanzapine, quetiapine, risperidone, ziprasidone, and aripiprazole. However, weight gain can occur with all of these drugs and considerable variability exists among patients receiving the same drug regarding the risk of metabolic effects. Anti-psychotic agents not only increase the risk of metabolic disorder, they also increase the risk of CVA, akathisia, and movement disorders including EPS or tardive dyskinesia (more common with first generation antipsychotics) and more. 3. 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 Tardive dyskinesia -AIMS COMPLETED = 7 on 12/01/20 AIMS = 16 reported has mouth movement and hand shakes still AIMS- 5 10/15/23 AIMS= 16 10/12/24 SLUMS= 23 10/12/24 AIMS= 16 off rx 5 months 10/12/24 reported continue to have TD- hands and arm, improved movement mouth and feet Increase Ingrezza 80 mg daily at night- [place] noted movement in hands bilateral, mouth and feet educated on rx Tardive Dyskinesia Dgnostic criteria include history of the use of neuroleptic medication for at least three months. [Or one month in patients 60 years of older] sign symptoms develop during exposure to neuroleptic medication Signs a symptoms include abnormal, involuntary movements of tongue, jaw, trunk, and extremities. Pharmacy: [facility]- 6. memory issues SLUMS= 23 10/12/24 DISCUSS SLUMS and medications options discuss and educated on medicationa and patient would like rx Namenda 10 mg twice a day- for memory 7. Long-term drug therapy Discussion NotesOne in a hundred people will develop schizophrenia, about 75% of people have relapses and continued disability, and a third fail to respond to standard treatment. Positive symptoms include auditory hallucinations, delusions, and thought disorder. Negative symptoms have not been consistently improved by any treatment. Standard treatment of schizophrenia is with antipsychotic drugs yet these can cause adverse effects such as sedation. Behavioral interventions, compliance therapy, and psych educational interventions may improve adherence to antipsychotic medication compared to usual care. 01/04/2025 Paranoid schizophrenia (ICD-10 - F20.0) Discussed the importance of medication adherence to prevent relapse and avoidance of substance misuse with patient. 1. Schizophrenia - Educated on all medications, benefits, side effects, risk, and mental health, depression anxiety, and mood d/o, movement d/o, and schizophrenia, psychosis, delusions, paranoia, compliance with medications and appointments discuss and educated on all rx Abilify 15 mg at bedtime monitor for psychosis delsuions, paranoia and depression patient reported doing better monitor for psychosis, paranoia, delusions obtain labs PCP AIMS= 5 10/15/23 AIMS= 16 10/12/24 SLUMS= 23 on 10/12/24 patient requested to be seen 5-6 months instead of 3 months r/t stable on rx and educated will be able to sooner if needed 2. depression -take Celexa 20 mg daily set alarms to take medicationsrefer to therapy - refused SSRI side effects discussed including but not limited to, gastric upset, nausea, vomiting, diarrhea and/or constipation, weight changes, sexual side effects including loss of libido, increased suicidal thoughts/behaviors in children and young adults, and serotonin syndrome.Second generation antipsychotics (SGAs) have metabolic syndrome issues with weight gain, increase in prolactin, increased waist circumference, increased lipids, and increased glucose. Thus routine monitoring of weight, metabolic labs, etc. is indicated. A general rank ordering of antipsychotics that have the greatest to the least risk of metabolic effects is olanzapine, quetiapine, risperidone, ziprasidone, and aripiprazole. However, weight gain can occur with all of these drugs and considerable variability exists among patients receiving the same drug regarding the risk of metabolic effects. Anti-psychotic agents not only increase the risk of metabolic disorder, they also increase the risk of CVA, akathisia, and movement disorders including EPS or tardive dyskinesia (more common with first generation antipsychotics) and more. 3. 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 Tardive dyskinesia -AIMS COMPLETED = 7 on 12/01/20 AIMS = 16 reported has mouth movement and hand shakes still AIMS- 5 10/15/23 AIMS= 16 10/12/24 SLUMS= 23 10/12/24 AIMS= 16 off rx 5 months 10/12/24 Increase Ingrezza 60 mg daily at night- [place] noted movement in hands bilateral, mouth and feet educated on rx Tardive Dyskinesia Dgnostic criteria include history of the use of neuroleptic medication for at least three months. [Or one month in patients 60 years of older] sign symptoms develop during exposure to neuroleptic medication Signs a symptoms include abnormal, involuntary movements of tongue, jaw, trunk, and extremities. Pharmacy: [facility]- 6. memory issues SLUMS= 23 10/12/24 DISCUSS SLUMS and medications options discuss and educated on medicationa and patient would like rx Increase Namenda 10 mg twice a day- for memory 7. Long-term drug therapy Discussion NotesOne in a hundred people will develop schizophrenia, about 75% of people have relapses and continued disability, and a third fail to respond to standard treatment. Positive symptoms include auditory hallucinations, delusions, and thought disorder. Negative symptoms have not been consistently improved by any treatment. Standard treatment of schizophrenia is with antipsychotic drugs yet these can cause adverse effects such as sedation. Behavioral interventions, compliance therapy, and psych educational interventions may improve adherence to antipsychotic medication compared to usual care. 10/12/2024 Generalized anxiety disorder (ICD-10 - F41.1) Discussed the importance of medication adherence to prevent relapse and avoidance of substance misuse with patient. 1. Schizophrenia - Educated on all medications, benefits, side effects, risk, and mental health, depression anxiety, and mood d/o, movement d/o, and schizophrenia, psychosis, delusions, paranoia, compliance with medications and appointments hx Terbinafine 250 mg for feet 90 pills spoke with pharmacist at [facility], able to take rx with Abilify discuss and educated on all rx will decrease Abilify 15 mg at bedtime monitor for psychosis delsuions, paranoia and depression patient reported doing better monitor for psychosis, paranoia, delusions obtain labs PCP AIMS= 5 10/15/23 AIMS= 16 10/12/24 SLUMS= 23 on 10/12/24 patient requested to be seen 5-6 months instead of 3 months r/t stable on rx and educated will be able to sooner if needed 2. Mild recurrent major depression -take Celexa 20 mg daily set alarms to take medicationsrefer to therapy - refused SSRI side effects discussed including but not limited to, gastric upset, nausea, vomiting, diarrhea and/or constipation, weight changes, sexual side effects including loss of libido, increased suicidal thoughts/behaviors in children and young adults, and serotonin syndrome.Second generation antipsychotics (SGAs) have metabolic syndrome issues with weight gain, increase in prolactin, increased waist circumference, increased lipids, and increased glucose. Thus routine monitoring of weight, metabolic labs, etc. is indicated. A general rank ordering of antipsychotics that have the greatest to the least risk of metabolic effects is olanzapine, quetiapine, risperidone, ziprasidone, and aripiprazole. However, weight gain can occur with all of these drugs and considerable variability exists among patients receiving the same drug regarding the risk of metabolic effects. Anti-psychotic agents not only increase the risk of metabolic disorder, they also increase the risk of CVA, akathisia, and movement disorders including EPS or tardive dyskinesia (more common with first generation antipsychotics) and more. 3. 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 Tardive dyskinesia -AIMS COMPLETED = 7 on 12/01/20 AIMS = 16 reported has mouth movement and hand shakes still AIMS- 5 10/15/23 AIMS= 16 10/12/24 SLUMS= 23 10/12/24 AIMS= 16 off rx 5 months 10/12/24 PA for Austedo If needed- educated on rx PA denied D/C Austedo XR 24 MG DAILY- not taken in 5 months Add Ingrezza 40 mg daily in am samples given educated on rx Tardive Dyskinesia Dgnostic criteria include history of the use of neuroleptic medication for at least three months. [Or one month in patients 60 years of older] sign symptoms develop during exposure to neuroleptic medication Signs a symptoms include abnormal, involuntary movements of tongue, jaw, trunk, and extremities. Pharmacy: [facility]- 6. memory issues SLUMS= 23 10/12/24 DISCUSS SLUMS and medications options discuss and educated on medicationa nd patient would like rx will add Namenda 5 mg twice a day 7. Long-term drug therapy Discussion NotesOne in a hundred people will develop schizophrenia, about 75% of people have relapses and continued disability, and a third fail to respond to standard treatment. Positive symptoms include auditory hallucinations, delusions, and thought disorder. Negative symptoms have not been consistently improved by any treatment. Standard treatment of schizophrenia is with antipsychotic drugs yet these can cause adverse effects such as sedation. Behavioral interventions, compliance therapy, and psych educational interventions may improve adherence to antipsychotic medication compared to usual care. 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 1. Schizophrenia - Educated on all medications, benefits, side effects, risk, and mental health, depression anxiety, and mood d/o, movement d/o, and schizophrenia, psychosis, delusions, paranoia, compliance with medications and appointments discuss and educated on all rx Abilify 10 mg at bedtime- stable monitor for psychosis delsuions, paranoia and depression patient reported doing better monitor for psychosis, paranoia, delusions obtain labs PCP AIMS= 5 10/15/23 AIMS= 16 10/12/24 SLUMS= 23 on 10/12/24 patient requested to be seen 5-6 months instead of 3 months r/t stable on rx and educated will be able to sooner if needed 2. depression -take Celexa 20 mg daily set alarms to take medications refer to therapy - refused SSRI side effects discussed including but not limited to, gastric upset, nausea, vomiting, diarrhea and/or constipation, weight changes, sexual side effects including loss of libido, increased suicidal thoughts/behaviors in children and young adults, and serotonin syndrome.Second generation antipsychotics (SGAs) have metabolic syndrome issues with weight gain, increase in prolactin, increased waist circumference, increased lipids, and increased glucose. Thus routine monitoring of weight, metabolic labs, etc. is indicated. A general rank ordering of antipsychotics that have the greatest to the least risk of metabolic effects is olanzapine, quetiapine, risperidone, ziprasidone, and aripiprazole. However, weight gain can occur with all of these drugs and considerable variability exists among patients receiving the same drug regarding the risk of metabolic effects. Anti-psychotic agents not only increase the risk of metabolic disorder, they also increase the risk of CVA, akathisia, and movement disorders including EPS or tardive dyskinesia (more common with first generation antipsychotics) and more. 3. 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 Tardive dyskinesia -AIMS COMPLETED = 7 on 12/01/20 AIMS = 16 reported has mouth movement and hand shakes still AIMS- 5 10/15/23 AIMS= 16 10/12/24 SLUMS= 23 10/12/24 AIMS= 16 off rx 5 months 10/12/24 reported continue to have TD- hands and arm, improved movement mouth and feet Ingrezza 60 mg daily at night- [place] - patient started this dose 05/26/25 Patient reported shaking more at Ingrezza 80 mg dose noted movement in hands bilateral, mouth and feet educated on rx Tardive Dyskinesia Dgnostic criteria include history of the use of neuroleptic medication for at least three months. [Or one month in patients 60 years of older] sign symptoms develop during exposure to neuroleptic medication Signs a symptoms include abnormal, involuntary movements of tongue, jaw, trunk, and extremities. Pharmacy: [facility]- 6. memory issues SLUMS= 23 10/12/24 DISCUSS SLUMS and medications options discuss and educated on medicationa and patient would like rx Namenda 10 mg twice a day- for memory 7. Long-term drug therapy Discussion NotesOne in a hundred people will develop schizophrenia, about 75% of people have relapses and continued disability, and a third fail to respond to standard treatment. Positive symptoms include auditory hallucinations, delusions, and thought disorder. Negative symptoms have not been consistently improved by any treatment. Standard treatment of schizophrenia is with antipsychotic drugs yet these can cause adverse effects such as sedation. Behavioral interventions, compliance therapy, and psych educational interventions may improve adherence to antipsychotic medication compared to usual care. 05/27/2025 Generalized anxiety disorder (ICD-10 - F41.1) Discussed the importance of medication adherence to prevent relapse and avoidance of substance misuse with patient. 1. Schizophrenia - Educated on all medications, benefits, side effects, risk, and mental health, depression anxiety, and mood d/o, movement d/o, and schizophrenia, psychosis, delusions, paranoia, compliance with medications and appointments discuss and educated on all rx Abilify 10 mg at bedtime- stable monitor for psychosis delsuions, paranoia and depression patient reported doing better monitor for psychosis, paranoia, delusions obtain labs PCP AIMS= 5 10/15/23 AIMS= 16 10/12/24 SLUMS= 23 on 10/12/24 patient requested to be seen 5-6 months instead of 3 months r/t stable on rx and educated will be able to sooner if needed 2. depression -take Celexa 20 mg daily set alarms to take medications refer to therapy - refused SSRI side effects discussed including but not limited to, gastric upset, nausea, vomiting, diarrhea and/or constipation, weight changes, sexual side effects including loss of libido, increased suicidal thoughts/behaviors in children and young adults, and serotonin syndrome.Second generation antipsychotics (SGAs) have metabolic syndrome issues with weight gain, increase in prolactin, increased waist circumference, increased lipids, and increased glucose. Thus routine monitoring of weight, metabolic labs, etc. is indicated. A general rank ordering of antipsychotics that have the greatest to the least risk of metabolic effects is olanzapine, quetiapine, risperidone, ziprasidone, and aripiprazole. However, weight gain can occur with all of these drugs and considerable variability exists among patients receiving the same drug regarding the risk of metabolic effects. Anti-psychotic agents not only increase the risk of metabolic disorder, they also increase the risk of CVA, akathisia, and movement disorders including EPS or tardive dyskinesia (more common with first generation antipsychotics) and more. 3. 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 Tardive dyskinesia -AIMS COMPLETED = 7 on 12/01/20 AIMS = 16 reported has mouth movement and hand shakes still AIMS- 5 10/15/23 AIMS= 16 10/12/24 SLUMS= 23 10/12/24 AIMS= 16 off rx 5 months 10/12/24 reported continue to have TD- hands and arm, improved movement mouth and feet Ingrezza 60 mg daily at night- [place] - patient started this dose 05/26/25 Patient reported shaking more at Ingrezza 80 mg dose noted movement in hands bilateral, mouth and feet educated on rx Tardive Dyskinesia Dgnostic criteria include history of the use of neuroleptic medication for at least three months. [Or one month in patients 60 years of older] sign symptoms develop during exposure to neuroleptic medication Signs a symptoms include abnormal, involuntary movements of tongue, jaw, trunk, and extremities. Pharmacy: [facility]- 6. memory issues SLUMS= 23 10/12/24 DISCUSS SLUMS and medications options discuss and educated on medicationa and patient would like rx Namenda 10 mg twice a day- for memory 7. Long-term drug therapy Discussion NotesOne in a hundred people will develop schizophrenia, about 75% of people have relapses and continued disability, and a third fail to respond to standard treatment. Positive symptoms include auditory hallucinations, delusions, and thought disorder. Negative symptoms have not been consistently improved by any treatment. Standard treatment of schizophrenia is with antipsychotic drugs yet these can cause adverse effects such as sedation. Behavioral interventions, compliance therapy, and psych educational interventions may improve adherence to antipsychotic medication compared to usual care. 05/27/2025 Insomnia due to other mental disorder (ICD-10 - F51.05) Discussed the importance of medication adherence to prevent relapse and avoidance of substance misuse with patient. 1. Schizophrenia - Educated on all medications, benefits, side effects, risk, and mental health, depression anxiety, and mood d/o, movement d/o, and schizophrenia, psychosis, delusions, paranoia, compliance with medications and appointments discuss and educated on all rx Abilify 10 mg at bedtime- stable monitor for psychosis delsuions, paranoia and depression patient reported doing better monitor for psychosis, paranoia, delusions obtain labs PCP AIMS= 5 10/15/23 AIMS= 16 10/12/24 SLUMS= 23 on 10/12/24 patient requested to be seen 5-6 months instead of 3 months r/t stable on rx and educated will be able to sooner if needed 2. depression -take Celexa 20 mg daily set alarms to take medications refer to therapy - refused SSRI side effects discussed including but not limited to, gastric upset, nausea, vomiting, diarrhea and/or constipation, weight changes, sexual side effects including loss of libido, increased suicidal thoughts/behaviors in children and young adults, and serotonin syndrome.Second generation antipsychotics (SGAs) have metabolic syndrome issues with weight gain, increase in prolactin, increased waist circumference, increased lipids, and increased glucose. Thus routine monitoring of weight, metabolic labs, etc. is indicated. A general rank ordering of antipsychotics that have the greatest to the least risk of metabolic effects is olanzapine, quetiapine, risperidone, ziprasidone, and aripiprazole. However, weight gain can occur with all of these drugs and considerable variability exists among patients receiving the same drug regarding the risk of metabolic effects. Anti-psychotic agents not only increase the risk of metabolic disorder, they also increase the risk of CVA, akathisia, and movement disorders including EPS or tardive dyskinesia (more common with first generation antipsychotics) and more. 3. 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 Tardive dyskinesia -AIMS COMPLETED = 7 on 12/01/20 AIMS = 16 reported has mouth movement and hand shakes still AIMS- 5 10/15/23 AIMS= 16 10/12/24 SLUMS= 23 10/12/24 AIMS= 16 off rx 5 months 10/12/24 reported continue to have TD- hands and arm, improved movement mouth and feet Ingrezza 60 mg daily at night- [place] - patient started this dose 05/26/25 Patient reported shaking more at Ingrezza 80 mg dose noted movement in hands bilateral, mouth and feet educated on rx Tardive Dyskinesia Dgnostic criteria include history of the use of neuroleptic medication for at least three months. [Or one month in patients 60 years of older] sign symptoms develop during exposure to neuroleptic medication Signs a symptoms include abnormal, involuntary movements of tongue, jaw, trunk, and extremities. Pharmacy: [facility]- 6. memory issues SLUMS= 23 10/12/24 DISCUSS SLUMS and medications options discuss and educated on medicationa and patient would like rx Namenda 10 mg twice a day- for memory 7. Long-term drug therapy Discussion NotesOne in a hundred people will develop schizophrenia, about 75% of people have relapses and continued disability, and a third fail to respond to standard treatment. Positive symptoms include auditory hallucinations, delusions, and thought disorder. Negative symptoms have not been consistently improved by any treatment. Standard treatment of schizophrenia is with antipsychotic drugs yet these can cause adverse effects such as sedation. Behavioral interventions, compliance therapy, and psych educational interventions may improve adherence to antipsychotic medication compared to usual care. 01/04/2025 Generalized anxiety disorder (ICD-10 - F41.1) Discussed the importance of medication adherence to prevent relapse and avoidance of substance misuse with patient. 1. Schizophrenia - Educated on all medications, benefits, side effects, risk, and mental health, depression anxiety, and mood d/o, movement d/o, and schizophrenia, psychosis, delusions, paranoia, compliance with medications and appointments discuss and educated on all rx Abilify 15 mg at bedtime monitor for psychosis delsuions, paranoia and depression patient reported doing better monitor for psychosis, paranoia, delusions obtain labs PCP AIMS= 5 10/15/23 AIMS= 16 10/12/24 SLUMS= 23 on 10/12/24 patient requested to be seen 5-6 months instead of 3 months r/t stable on rx and educated will be able to sooner if needed 2. depression -take Celexa 20 mg daily set alarms to take medicationsrefer to therapy - refused SSRI side effects discussed including but not limited to, gastric upset, nausea, vomiting, diarrhea and/or constipation, weight changes, sexual side effects including loss of libido, increased suicidal thoughts/behaviors in children and young adults, and serotonin syndrome.Second generation antipsychotics (SGAs) have metabolic syndrome issues with weight gain, increase in prolactin, increased waist circumference, increased lipids, and increased glucose. Thus routine monitoring of weight, metabolic labs, etc. is indicated. A general rank ordering of antipsychotics that have the greatest to the least risk of metabolic effects is olanzapine, quetiapine, risperidone, ziprasidone, and aripiprazole. However, weight gain can occur with all of these drugs and considerable variability exists among patients receiving the same drug regarding the risk of metabolic effects. Anti-psychotic agents not only increase the risk of metabolic disorder, they also increase the risk of CVA, akathisia, and movement disorders including EPS or tardive dyskinesia (more common with first generation antipsychotics) and more. 3. 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 Tardive dyskinesia -AIMS COMPLETED = 7 on 12/01/20 AIMS = 16 reported has mouth movement and hand shakes still AIMS- 5 10/15/23 AIMS= 16 10/12/24 SLUMS= 23 10/12/24 AIMS= 16 off rx 5 months 10/12/24 Increase Ingrezza 60 mg daily at night- [place] noted movement in hands bilateral, mouth and feet educated on rx Tardive Dyskinesia Dgnostic criteria include history of the use of neuroleptic medication for at least three months. [Or one month in patients 60 years of older] sign symptoms develop during exposure to neuroleptic medication Signs a symptoms include abnormal, involuntary movements of tongue, jaw, trunk, and extremities. Pharmacy: [facility]- 6. memory issues SLUMS= 23 10/12/24 DISCUSS SLUMS and medications options discuss and educated on medicationa and patient would like rx Increase Namenda 10 mg twice a day- for memory 7. Long-term drug therapy Discussion NotesOne in a hundred people will develop schizophrenia, about 75% of people have relapses and continued disability, and a third fail to respond to standard treatment. Positive symptoms include auditory hallucinations, delusions, and thought disorder. Negative symptoms have not been consistently improved by any treatment. Standard treatment of schizophrenia is with antipsychotic drugs yet these can cause adverse effects such as sedation. Behavioral interventions, compliance therapy, and psych educational interventions may improve adherence to antipsychotic medication compared to usual care. 10/12/2024 Major depressive disorder, recurrent, moderate (ICD-10 - F33.1) Discussed the importance of medication adherence to prevent relapse and avoidance of substance misuse with patient. 1. Schizophrenia - Educated on all medications, benefits, side effects, risk, and mental health, depression anxiety, and mood d/o, movement d/o, and schizophrenia, psychosis, delusions, paranoia, compliance with medications and appointments hx Terbinafine 250 mg for feet 90 pills spoke with pharmacist at [facility], able to take rx with Abilify discuss and educated on all rx will decrease Abilify 15 mg at bedtime monitor for psychosis delsuions, paranoia and depression patient reported doing better monitor for psychosis, paranoia, delusions obtain labs PCP AIMS= 5 10/15/23 AIMS= 16 10/12/24 SLUMS= 23 on 10/12/24 patient requested to be seen 5-6 months instead of 3 months r/t stable on rx and educated will be able to sooner if needed 2. Mild recurrent major depression -take Celexa 20 mg daily set alarms to take medicationsrefer to therapy - refused SSRI side effects discussed including but not limited to, gastric upset, nausea, vomiting, diarrhea and/or constipation, weight changes, sexual side effects including loss of libido, increased suicidal thoughts/behaviors in children and young adults, and serotonin syndrome.Second generation antipsychotics (SGAs) have metabolic syndrome issues with weight gain, increase in prolactin, increased waist circumference, increased lipids, and increased glucose. Thus routine monitoring of weight, metabolic labs, etc. is indicated. A general rank ordering of antipsychotics that have the greatest to the least risk of metabolic effects is olanzapine, quetiapine, risperidone, ziprasidone, and aripiprazole. However, weight gain can occur with all of these drugs and considerable variability exists among patients receiving the same drug regarding the risk of metabolic effects. Anti-psychotic agents not only increase the risk of metabolic disorder, they also increase the risk of CVA, akathisia, and movement disorders including EPS or tardive dyskinesia (more common with first generation antipsychotics) and more. 3. 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 Tardive dyskinesia -AIMS COMPLETED = 7 on 12/01/20 AIMS = 16 reported has mouth movement and hand shakes still AIMS- 5 10/15/23 AIMS= 16 10/12/24 SLUMS= 23 10/12/24 AIMS= 16 off rx 5 months 10/12/24 PA for [place] If needed- educated on rx PA denied D/C [place] XR 24 MG DAILY- not taken in 5 months Add Ingrezza 40 mg daily in am samples given educated on rx Tardive Dyskinesia Dgnostic criteria include history of the use of neuroleptic medication for at least three months. [Or one month in patients 60 years of older] sign symptoms develop during exposure to neuroleptic medication Signs a symptoms include abnormal, involuntary movements of tongue, jaw, trunk, and extremities. Pharmacy: [facility]- 6. memory issues SLUMS= 10/12/24 DISCUSS SLUMS and medications options discuss and educated on medicationa nd patient would like rx will add Namenda 5 mg twice a day 7. Long-term drug therapy Discussion NotesOne in a hundred people will develop schizophrenia, about 75% of people have relapses and continued disability, and a third fail to respond to standard treatment. Positive symptoms include auditory hallucinations, delusions, and thought disorder. Negative symptoms have not been consistently improved by any treatment. Standard treatment of schizophrenia is with antipsychotic drugs yet these can cause adverse effects such as sedation. Behavioral interventions, compliance therapy, and psych educational interventions may improve adherence to antipsychotic medication compared to usual care. 04/05/2025 Generalized anxiety disorder (ICD-10 - F41.1) Discussed the importance of medication adherence to prevent relapse and avoidance of substance misuse with patient. 1. Schizophrenia - Educated on all medications, benefits, side effects, risk, and mental health, depression anxiety, and mood d/o, movement d/o, and schizophrenia, psychosis, delusions, paranoia, compliance with medications and appointments discuss and educated on all rx decrease Abilify 10 mg at bedtime- stable monitor for psychosis delsuions, paranoia and depression patient reported doing better monitor for psychosis, paranoia, delusions obtain labs PCP AIMS= 5 10/15/23 AIMS= 16 10/12/24 SLUMS= 23 on 10/12/24 patient requested to be seen 5-6 months instead of 3 months r/t stable on rx and educated will be able to sooner if needed 2. depression -take Celexa 20 mg daily set alarms to take medications refer to therapy - refused SSRI side effects discussed including but not limited to, gastric upset, nausea, vomiting, diarrhea and/or constipation, weight changes, sexual side effects including loss of libido, increased suicidal thoughts/behaviors in children and young adults, and serotonin syndrome.Second generation antipsychotics (SGAs) have metabolic syndrome issues with weight gain, increase in prolactin, increased waist circumference, increased lipids, and increased glucose. Thus routine monitoring of weight, metabolic labs, etc. is indicated. A general rank ordering of antipsychotics that have the greatest to the least risk of metabolic effects is olanzapine, quetiapine, risperidone, ziprasidone, and aripiprazole. However, weight gain can occur with all of these drugs and considerable variability exists among patients receiving the same drug regarding the risk of metabolic effects. Anti-psychotic agents not only increase the risk of metabolic disorder, they also increase the risk of CVA, akathisia, and movement disorders including EPS or tardive dyskinesia (more common with first generation antipsychotics) and more. 3. 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 Tardive dyskinesia -AIMS COMPLETED = 7 on 12/01/20 AIMS = 16 reported has mouth movement and hand shakes still AIMS- 5 10/15/23 AIMS= 16 10/12/24 SLUMS= 23 10/12/24 AIMS= 16 off rx 5 months 10/12/24 reported continue to have TD- hands and arm, improved movement mouth and feet Increase Ingrezza 80 mg daily at night- [place] noted movement in hands bilateral, mouth and feet educated on rx Tardive Dyskinesia Dgnostic criteria include history of the use of neuroleptic medication for at least three months. [Or one month in patients 60 years of older] sign symptoms develop during exposure to neuroleptic medication Signs a symptoms include abnormal, involuntary movements of tongue, jaw, trunk, and extremities. Pharmacy: [facility]- 6. memory issues SLUMS= 23 10/12/24 DISCUSS SLUMS and medications options discuss and educated on medicationa and patient would like rx Namenda 10 mg twice a day- for memory 7. Long-term drug therapy Discussion NotesOne in a hundred people will develop schizophrenia, about 75% of people have relapses and continued disability, and a third fail to respond to standard treatment. Positive symptoms include auditory hallucinations, delusions, and thought disorder. Negative symptoms have not been consistently improved by any treatment. Standard treatment of schizophrenia is with antipsychotic drugs yet these can cause adverse effects such as sedation. Behavioral interventions, compliance therapy, and psych educational interventions may improve adherence to antipsychotic medication compared to usual care. 04/05/2025 Major depressive disorder, recurrent, moderate (ICD-10 - F33.1) Discussed the importance of medication adherence to prevent relapse and avoidance of substance misuse with patient. 1. Schizophrenia - Educated on all medications, benefits, side effects, risk, and mental health, depression anxiety, and mood d/o, movement d/o, and schizophrenia, psychosis, delusions, paranoia, compliance with medications and appointments discuss and educated on all rx decrease Abilify 10 mg at bedtime- stable monitor for psychosis delsuions, paranoia and depression patient reported doing better monitor for psychosis, paranoia, delusions obtain labs PCP AIMS= 5 10/15/23 AIMS= 16 10/12/24 SLUMS= 23 on 10/12/24 patient requested to be seen 5-6 months instead of 3 months r/t stable on rx and educated will be able to sooner if needed 2. depression -take Celexa 20 mg daily set alarms to take medications refer to therapy - refused SSRI side effects discussed including but not limited to, gastric upset, nausea, vomiting, diarrhea and/or constipation, weight changes, sexual side effects including loss of libido, increased suicidal thoughts/behaviors in children and young adults, and serotonin syndrome.Second generation antipsychotics (SGAs) have metabolic syndrome issues with weight gain, increase in prolactin, increased waist circumference, increased lipids, and increased glucose. Thus routine monitoring of weight, metabolic labs, etc. is indicated. A general rank ordering of antipsychotics that have the greatest to the least risk of metabolic effects is olanzapine, quetiapine, risperidone, ziprasidone, and aripiprazole. However, weight gain can occur with all of these drugs and considerable variability exists among patients receiving the same drug regarding the risk of metabolic effects. Anti-psychotic agents not only increase the risk of metabolic disorder, they also increase the risk of CVA, akathisia, and movement disorders including EPS or tardive dyskinesia (more common with first generation antipsychotics) and more. 3. 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 Tardive dyskinesia -AIMS COMPLETED = 7 on 12/01/20 AIMS = 16 reported has mouth movement and hand shakes still AIMS- 5 10/15/23 AIMS= 16 10/12/24 SLUMS= 23 10/12/24 AIMS= 16 off rx 5 months 10/12/24 reported continue to have TD- hands and arm, improved movement mouth and feet Increase Ingrezza 80 mg daily at night- [place] noted movement in hands bilateral, mouth and feet educated on rx Tardive Dyskinesia Dgnostic criteria include history of the use of neuroleptic medication for at least three months. [Or one month in patients 60 years of older] sign symptoms develop during exposure to neuroleptic medication Signs a symptoms include abnormal, involuntary movements of tongue, jaw, trunk, and extremities. Pharmacy: [facility]- 6. memory issues SLUMS= 23 10/12/24 DISCUSS SLUMS and medications options discuss and educated on medicationa and patient would like rx Namenda 10 mg twice a day- for memory 7. Long-term drug therapy Discussion NotesOne in a hundred people will develop schizophrenia, about 75% of people have relapses and continued disability, and a third fail to respond to standard treatment. Positive symptoms include auditory hallucinations, delusions, and thought disorder. Negative symptoms have not been consistently improved by any treatment. Standard treatment of schizophrenia is with antipsychotic drugs yet these can cause adverse effects such as sedation. Behavioral interventions, compliance therapy, and psych educational interventions may improve adherence to antipsychotic medication compared to usual care. 01/04/2025 Major depressive disorder, recurrent, moderate (ICD-10 - F33.1) Discussed the importance of medication adherence to prevent relapse and avoidance of substance misuse with patient. 1. Schizophrenia - Educated on all medications, benefits, side effects, risk, and mental health, depression anxiety, and mood d/o, movement d/o, and schizophrenia, psychosis, delusions, paranoia, compliance with medications and appointments discuss and educated on all rx Abilify 15 mg at bedtime monitor for psychosis delsuions, paranoia and depression patient reported doing better monitor for psychosis, paranoia, delusions obtain labs PCP AIMS= 5 10/15/23 AIMS= 16 10/12/24 SLUMS= 23 on 10/12/24 patient requested to be seen 5-6 months instead of 3 months r/t stable on rx and educated will be able to sooner if needed 2. depression -take Celexa 20 mg daily set alarms to take medicationsrefer to therapy - refused SSRI side effects discussed including but not limited to, gastric upset, nausea, vomiting, diarrhea and/or constipation, weight changes, sexual side effects including loss of libido, increased suicidal thoughts/behaviors in children and young adults, and serotonin syndrome.Second generation antipsychotics (SGAs) have metabolic syndrome issues with weight gain, increase in prolactin, increased waist circumference, increased lipids, and increased glucose. Thus routine monitoring of weight, metabolic labs, etc. is indicated. A general rank ordering of antipsychotics that have the greatest to the least risk of metabolic effects is olanzapine, quetiapine, risperidone, ziprasidone, and aripiprazole. However, weight gain can occur with all of these drugs and considerable variability exists among patients receiving the same drug regarding the risk of metabolic effects. Anti-psychotic agents not only increase the risk of metabolic disorder, they also increase the risk of CVA, akathisia, and movement disorders including EPS or tardive dyskinesia (more common with first generation antipsychotics) and more. 3. 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 Tardive dyskinesia -AIMS COMPLETED = 7 on 12/01/20 AIMS = 16 reported has mouth movement and hand shakes still AIMS- 5 10/15/23 AIMS= 16 10/12/24 SLUMS= 23 10/12/24 AIMS= 16 off rx 5 months 10/12/24 Increase Ingrezza 60 mg daily at night- [place] noted movement in hands bilateral, mouth and feet educated on rx Tardive Dyskinesia Dgnostic criteria include history of the use of neuroleptic medication for at least three months. [Or one month in patients 60 years of older] sign symptoms develop during exposure to neuroleptic medication Signs a symptoms include abnormal, involuntary movements of tongue, jaw, trunk, and extremities. Pharmacy: [facility]- 6. memory issues SLUMS= 23 10/12/24 DISCUSS SLUMS and medications options discuss and educated on medicationa and patient would like rx Increase Namenda 10 mg twice a day- for memory 7. Long-term drug therapy Discussion NotesOne in a hundred people will develop schizophrenia, about 75% of people have relapses and continued disability, and a third fail to respond to standard treatment. Positive symptoms include auditory hallucinations, delusions, and thought disorder. Negative symptoms have not been consistently improved by any treatment. Standard treatment of schizophrenia is with antipsychotic drugs yet these can cause adverse effects such as sedation. Behavioral interventions, compliance therapy, and psych educational interventions may improve adherence to antipsychotic medication compared to usual care. 10/12/2024 Insomnia due to other mental disorder (ICD-10 - F51.05) Discussed the importance of medication adherence to prevent relapse and avoidance of substance misuse with patient. 1. Schizophrenia - Educated on all medications, benefits, side effects, risk, and mental health, depression anxiety, and mood d/o, movement d/o, and schizophrenia, psychosis, delusions, paranoia, compliance with medications and appointments hx Terbinafine 250 mg for feet 90 pills spoke with pharmacist at [facility], able to take rx with Abilify discuss and educated on all rx will decrease Abilify 15 mg at bedtime monitor for psychosis delsuions, paranoia and depression patient reported doing better monitor for psychosis, paranoia, delusions obtain labs PCP AIMS= 5 10/15/23 AIMS= 16 10/12/24 SLUMS= 23 on 10/12/24 patient requested to be seen 5-6 months instead of 3 months r/t stable on rx and educated will be able to sooner if needed 2. Mild recurrent major depression -take Celexa 20 mg daily set alarms to take medicationsrefer to therapy - refused SSRI side effects discussed including but not limited to, gastric upset, nausea, vomiting, diarrhea and/or constipation, weight changes, sexual side effects including loss of libido, increased suicidal thoughts/behaviors in children and young adults, and serotonin syndrome.Second generation antipsychotics (SGAs) have metabolic syndrome issues with weight gain, increase in prolactin, increased waist circumference, increased lipids, and increased glucose. Thus routine monitoring of weight, metabolic labs, etc. is indicated. A general rank ordering of antipsychotics that have the greatest to the least risk of metabolic effects is olanzapine, quetiapine, risperidone, ziprasidone, and aripiprazole. However, weight gain can occur with all of these drugs and considerable variability exists among patients receiving the same drug regarding the risk of metabolic effects. Anti-psychotic agents not only increase the risk of metabolic disorder, they also increase the risk of CVA, akathisia, and movement disorders including EPS or tardive dyskinesia (more common with first generation antipsychotics) and more. 3. 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 Tardive dyskinesia -AIMS COMPLETED = 7 on 12/01/20 AIMS = 16 reported has mouth movement and hand shakes still AIMS- 5 10/15/23 AIMS= 16 10/12/24 SLUMS= 23 10/12/24 AIMS= 16 off rx 5 months 10/12/24 PA for Austedo If needed- educated on rx PA denied D/C Austedo XR 24 MG DAILY- not taken in 5 months Add Ingrezza 40 mg daily in am samples given educated on rx Tardive Dyskinesia Dgnostic criteria include history of the use of neuroleptic medication for at least three months. [Or one month in patients 60 years of older] sign symptoms develop during exposure to neuroleptic medication Signs a symptoms include abnormal, involuntary movements of tongue, jaw, trunk, and extremities. Pharmacy: [facility]- 6. memory issues SLUMS= 23 10/12/24 DISCUSS SLUMS and medications options discuss and educated on medicationa nd patient would like rx will add Namenda 5 mg twice a day 7. Long-term drug therapy Discussion NotesOne in a hundred people will develop schizophrenia, about 75% of people have relapses and continued disability, and a third fail to respond to standard treatment. Positive symptoms include auditory hallucinations, delusions, and thought disorder. Negative symptoms have not been consistently improved by any treatment. Standard treatment of schizophrenia is with antipsychotic drugs yet these can cause adverse effects such as sedation. Behavioral interventions, compliance therapy, and psych educational interventions may improve adherence to antipsychotic medication compared to usual care. 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 1. Schizophrenia - Educated on all medications, benefits, side effects, risk, and mental health, depression anxiety, and mood d/o, movement d/o, and schizophrenia, psychosis, delusions, paranoia, compliance with medications and appointments discuss and educated on all rx Abilify 10 mg at bedtime- stable monitor for psychosis delsuions, paranoia and depression patient reported doing better monitor for psychosis, paranoia, delusions obtain labs PCP AIMS= 5 10/15/23 AIMS= 16 10/12/24 SLUMS= 23 on 10/12/24 patient requested to be seen 5-6 months instead of 3 months r/t stable on rx and educated will be able to sooner if needed 2. depression -take Celexa 20 mg daily set alarms to take medications refer to therapy - refused SSRI side effects discussed including but not limited to, gastric upset, nausea, vomiting, diarrhea and/or constipation, weight changes, sexual side effects including loss of libido, increased suicidal thoughts/behaviors in children and young adults, and serotonin syndrome.Second generation antipsychotics (SGAs) have metabolic syndrome issues with weight gain, increase in prolactin, increased waist circumference, increased lipids, and increased glucose. Thus routine monitoring of weight, metabolic labs, etc. is indicated. A general rank ordering of antipsychotics that have the greatest to the least risk of metabolic effects is olanzapine, quetiapine, risperidone, ziprasidone, and aripiprazole. However, weight gain can occur with all of these drugs and considerable variability exists among patients receiving the same drug regarding the risk of metabolic effects. Anti-psychotic agents not only increase the risk of metabolic disorder, they also increase the risk of CVA, akathisia, and movement disorders including EPS or tardive dyskinesia (more common with first generation antipsychotics) and more. 3. 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 Tardive dyskinesia -AIMS COMPLETED = 7 on 12/01/20 AIMS = 16 reported has mouth movement and hand shakes still AIMS- 5 10/15/23 AIMS= 16 10/12/24 SLUMS= 23 10/12/24 AIMS= 16 off rx 5 months 10/12/24 reported continue to have TD- hands and arm, improved movement mouth and feet Ingrezza 60 mg daily at night- [place] - patient started this dose 05/26/25 Patient reported shaking more at Ingrezza 80 mg dose noted movement in hands bilateral, mouth and feet educated on rx Tardive Dyskinesia Dgnostic criteria include history of the use of neuroleptic medication for at least three months. [Or one month in patients 60 years of older] sign symptoms develop during exposure to neuroleptic medication Signs a symptoms include abnormal, involuntary movements of tongue, jaw, trunk, and extremities. Pharmacy: [facility]- 6. memory issues SLUMS= 23 1/13/25 DISCUSS SLUMS and medications options discuss and educated on medicationa and patient would like rx Namenda 10 mg twice a day- for memory 7. Long-term drug therapy Discussion NotesOne in a hundred people will develop schizophrenia, about 75% of people have relapses and continued disability, and a third fail to respond to standard treatment. Positive symptoms include auditory hallucinations, delusions, and thought disorder. Negative symptoms have not been consistently improved by any treatment. Standard treatment of schizophrenia is with antipsychotic drugs yet these can cause adverse effects such as sedation. Behavioral interventions, compliance therapy, and psych educational interventions may improve adherence to antipsychotic medication compared to usual care. 05/27/2025 Other longterm (current) drug therapy (ICD-10 - Z79.899) Discussed the importance of medication adherence to prevent relapse and avoidance of substance misuse with patient. 1. Schizophrenia - Educated on all medications, benefits, side effects, risk, and mental health, depression anxiety, and mood d/o, movement d/o, and schizophrenia, psychosis, delusions, paranoia, compliance with medications and appointments discuss and educated on all rx Abilify 10 mg at bedtime- stable monitor for psychosis delsuions, paranoia and depression patient reported doing better monitor for psychosis, paranoia, delusions obtain labs PCP AIMS= 5 10/15/23 AIMS= 16 10/12/24 SLUMS= 23 on 10/12/24 patient requested to be seen 5-6 months instead of 3 months r/t stable on rx and educated will be able to sooner if needed 2. depression -take Celexa 20 mg daily set alarms to take medications refer to therapy - refused SSRI side effects discussed including but not limited to, gastric upset, nausea, vomiting, diarrhea and/or constipation, weight changes, sexual side effects including loss of libido, increased suicidal thoughts/behaviors in children and young adults, and serotonin syndrome.Second generation antipsychotics (SGAs) have metabolic syndrome issues with weight gain, increase in prolactin, increased waist circumference, increased lipids, and increased glucose. Thus routine monitoring of weight, metabolic labs, etc. is indicated. A general rank ordering of antipsychotics that have the greatest to the least risk of metabolic effects is olanzapine, quetiapine, risperidone, ziprasidone, and aripiprazole. However, weight gain can occur with all of these drugs and considerable variability exists among patients receiving the same drug regarding the risk of metabolic effects. Anti-psychotic agents not only increase the risk of metabolic disorder, they also increase the risk of CVA, akathisia, and movement disorders including EPS or tardive dyskinesia (more common with first generation antipsychotics) and more. 3. 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 Tardive dyskinesia -AIMS COMPLETED = 7 on 12/01/20 AIMS = 16 reported has mouth movement and hand shakes still AIMS- 5 10/15/23 AIMS= 16 10/12/24 SLUMS= 23 10/12/24 AIMS= 16 off rx 5 months 10/12/24 reported continue to have TD- hands and arm, improved movement mouth and feet Ingrezza 60 mg daily at night- [place] - patient started this dose 05/26/25 Patient reported shaking more at Ingrezza 80 mg dose noted movement in hands bilateral, mouth and feet educated on rx Tardive Dyskinesia Dgnostic criteria include history of the use of neuroleptic medication for at least three months. [Or one month in patients 60 years of older] sign symptoms develop during exposure to neuroleptic medication Signs a symptoms include abnormal, involuntary movements of tongue, jaw, trunk, and extremities. Pharmacy: [facility]- 6. memory issues SLUMS= 23 10/12/24 DISCUSS SLUMS and medications options discuss and educated on medicationa and patient would like rx Namenda 10 mg twice a day- for memory 7. Long-term drug therapy Discussion NotesOne in a hundred people will develop schizophrenia, about 75% of people have relapses and continued disability, and a third fail to respond to standard treatment. Positive symptoms include auditory hallucinations, delusions, and thought disorder. Negative symptoms have not been consistently improved by any treatment. Standard treatment of schizophrenia is with antipsychotic drugs yet these can cause adverse effects such as sedation. Behavioral interventions, compliance therapy, and psych educational interventions may improve adherence to antipsychotic medication compared to usual care. 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 1. Schizophrenia - Educated on all medications, benefits, side effects, risk, and mental health, depression anxiety, and mood d/o, movement d/o, and schizophrenia, psychosis, delusions, paranoia, compliance with medications and appointments hx Terbinafine 250 mg for feet 90 pills spoke with pharmacist at [facility], able to take rx with Abilify discuss and educated on all rx will decrease Abilify 15 mg at bedtime monitor for psychosis delsuions, paranoia and depression patient reported doing better monitor for psychosis, paranoia, delusions obtain labs PCP AIMS= 5 10/15/23 AIMS= 16 10/12/24 SLUMS= 23 on 10/12/24 patient requested to be seen 5-6 months instead of 3 months r/t stable on rx and educated will be able to sooner if needed 2. Mild recurrent major depression -take Celexa 20 mg daily set alarms to take medicationsrefer to therapy - refused SSRI side effects discussed including but not limited to, gastric upset, nausea, vomiting, diarrhea and/or constipation, weight changes, sexual side effects including loss of libido, increased suicidal thoughts/behaviors in children and young adults, and serotonin syndrome.Second generation antipsychotics (SGAs) have metabolic syndrome issues with weight gain, increase in prolactin, increased waist circumference, increased lipids, and increased glucose. Thus routine monitoring of weight, metabolic labs, etc. is indicated. A general rank ordering of antipsychotics that have the greatest to the least risk of metabolic effects is olanzapine, quetiapine, risperidone, ziprasidone, and aripiprazole. However, weight gain can occur with all of these drugs and considerable variability exists among patients receiving the same drug regarding the risk of metabolic effects. Anti-psychotic agents not only increase the risk of metabolic disorder, they also increase the risk of CVA, akathisia, and movement disorders including EPS or tardive dyskinesia (more common with first generation antipsychotics) and more. 3. 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 Tardive dyskinesia -AIMS COMPLETED = 7 on 12/01/20 AIMS = 16 reported has mouth movement and hand shakes still AIMS- 5 10/15/23 AIMS= 16 10/12/24 SLUMS= 23 10/12/24 AIMS= 16 off rx 5 months 10/12/24 PA for [place] If needed- educated on rx PA denied D/C [place] XR 24 MG DAILY- not taken in 5 months Add Ingrezza 40 mg daily in am samples given educated on rx Tardive Dyskinesia Dgnostic criteria include history of the use of neuroleptic medication for at least three months. [Or one month in patients 60 years of older] sign symptoms develop during exposure to neuroleptic medication Signs a symptoms include abnormal, involuntary movements of tongue, jaw, trunk, and extremities. Pharmacy: [facility]- 6. memory issues SLUMS= 23 10/12/24 DISCUSS SLUMS and medications options discuss and educated on medicationa nd patient would like rx will add Namenda 5 mg twice a day 7. Long-term drug therapy Discussion NotesOne in a hundred people will develop schizophrenia, about 75% of people have relapses and continued disability, and a third fail to respond to standard treatment. Positive symptoms include auditory hallucinations, delusions, and thought disorder. Negative symptoms have not been consistently improved by any treatment. Standard treatment of schizophrenia is with antipsychotic drugs yet these can cause adverse effects such as sedation. Behavioral interventions, compliance therapy, and psych educational interventions may improve adherence to antipsychotic medication compared to usual care. 01/04/2025 Insomnia due to other mental disorder (ICD-10 - F51.05) Discussed the importance of medication adherence to prevent relapse and avoidance of substance misuse with patient. 1. Schizophrenia - Educated on all medications, benefits, side effects, risk, and mental health, depression anxiety, and mood d/o, movement d/o, and schizophrenia, psychosis, delusions, paranoia, compliance with medications and appointments discuss and educated on all rx Abilify 15 mg at bedtime monitor for psychosis delsuions, paranoia and depression patient reported doing better monitor for psychosis, paranoia, delusions obtain labs PCP AIMS= 5 10/15/23 AIMS= 16 10/12/24 SLUMS= 23 on 10/12/24 patient requested to be seen 5-6 months instead of 3 months r/t stable on rx and educated will be able to sooner if needed 2. depression -take Celexa 20 mg daily set alarms to take medicationsrefer to therapy - refused SSRI side effects discussed including but not limited to, gastric upset, nausea, vomiting, diarrhea and/or constipation, weight changes, sexual side effects including loss of libido, increased suicidal thoughts/behaviors in children and young adults, and serotonin syndrome.Second generation antipsychotics (SGAs) have metabolic syndrome issues with weight gain, increase in prolactin, increased waist circumference, increased lipids, and increased glucose. Thus routine monitoring of weight, metabolic labs, etc. is indicated. A general rank ordering of antipsychotics that have the greatest to the least risk of metabolic effects is olanzapine, quetiapine, risperidone, ziprasidone, and aripiprazole. However, weight gain can occur with all of these drugs and considerable variability exists among patients receiving the same drug regarding the risk of metabolic effects. Anti-psychotic agents not only increase the risk of metabolic disorder, they also increase the risk of CVA, akathisia, and movement disorders including EPS or tardive dyskinesia (more common with first generation antipsychotics) and more. 3. 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 Tardive dyskinesia -AIMS COMPLETED = 7 on 12/01/20 AIMS = 16 reported has mouth movement and hand shakes still AIMS- 5 10/15/23 AIMS= 16 10/12/24 SLUMS= 23 10/12/24 AIMS= 16 off rx 5 months 10/12/24 Increase Ingrezza 60 mg daily at night- [place] noted movement in hands bilateral, mouth and feet educated on rx Tardive Dyskinesia Dgnostic criteria include history of the use of neuroleptic medication for at least three months. [Or one month in patients 60 years of older] sign symptoms develop during exposure to neuroleptic medication Signs a symptoms include abnormal, involuntary movements of tongue, jaw, trunk, and extremities. Pharmacy: [facility]- 6. memory issues SLUMS= 23 10/12/24 DISCUSS SLUMS and medications options discuss and educated on medicationa and patient would like rx Increase Namenda 10 mg twice a day- for memory 7. Long-term drug therapy Discussion NotesOne in a hundred people will develop schizophrenia, about 75% of people have relapses and continued disability, and a third fail to respond to standard treatment. Positive symptoms include auditory hallucinations, delusions, and thought disorder. Negative symptoms have not been consistently improved by any treatment. Standard treatment of schizophrenia is with antipsychotic drugs yet these can cause adverse effects such as sedation. Behavioral interventions, compliance therapy, and psych educational interventions may improve adherence to antipsychotic medication compared to usual care. 04/05/2025 Insomnia due to other mental disorder (ICD-10 - F51.05) Discussed the importance of medication adherence to prevent relapse and avoidance of substance misuse with patient. 1. Schizophrenia - Educated on all medications, benefits, side effects, risk, and mental health, depression anxiety, and mood d/o, movement d/o, and schizophrenia, psychosis, delusions, paranoia, compliance with medications and appointments discuss and educated on all rx decrease Abilify 10 mg at bedtime- stable monitor for psychosis delsuions, paranoia and depression patient reported doing better monitor for psychosis, paranoia, delusions obtain labs PCP AIMS= 5 10/15/23 AIMS= 16 10/12/24 SLUMS= 23 on 10/12/24 patient requested to be seen 5-6 months instead of 3 months r/t stable on rx and educated will be able to sooner if needed 2. depression -take Celexa 20 mg daily set alarms to take medications refer to therapy - refused SSRI side effects discussed including but not limited to, gastric upset, nausea, vomiting, diarrhea and/or constipation, weight changes, sexual side effects including loss of libido, increased suicidal thoughts/behaviors in children and young adults, and serotonin syndrome.Second generation antipsychotics (SGAs) have metabolic syndrome issues with weight gain, increase in prolactin, increased waist circumference, increased lipids, and increased glucose. Thus routine monitoring of weight, metabolic labs, etc. is indicated. A general rank ordering of antipsychotics that have the greatest to the least risk of metabolic effects is olanzapine, quetiapine, risperidone, ziprasidone, and aripiprazole. However, weight gain can occur with all of these drugs and considerable variability exists among patients receiving the same drug regarding the risk of metabolic effects. Anti-psychotic agents not only increase the risk of metabolic disorder, they also increase the risk of CVA, akathisia, and movement disorders including EPS or tardive dyskinesia (more common with first generation antipsychotics) and more. 3. 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 Tardive dyskinesia -AIMS COMPLETED = 7 on 12/01/20 AIMS = 16 reported has mouth movement and hand shakes still AIMS- 5 10/15/23 AIMS= 16 10/12/24 SLUMS= 23 10/12/24 AIMS= 16 off rx 5 months 10/12/24 reported continue to have TD- hands and arm, improved movement mouth and feet Increase Ingrezza 80 mg daily at night- [place] noted movement in hands bilateral, mouth and feet educated on rx Tardive Dyskinesia Dgnostic criteria include history of the use of neuroleptic medication for at least three months. [Or one month in patients 60 years of older] sign symptoms develop during exposure to neuroleptic medication Signs a symptoms include abnormal, involuntary movements of tongue, jaw, trunk, and extremities. Pharmacy: [facility]- 6. memory issues SLUMS= 23 10/12/24 DISCUSS SLUMS and medications options discuss and educated on medicationa and patient would like rx Namenda 10 mg twice a day- for memory 7. Long-term drug therapy Discussion NotesOne in a hundred people will develop schizophrenia, about 75% of people have relapses and continued disability, and a third fail to respond to standard treatment. Positive symptoms include auditory hallucinations, delusions, and thought disorder. Negative symptoms have not been consistently improved by any treatment. Standard treatment of schizophrenia is with antipsychotic drugs yet these can cause adverse effects such as sedation. Behavioral interventions, compliance therapy, and psych educational interventions may improve adherence to antipsychotic medication compared to usual care. 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 1. Schizophrenia - Educated on all medications, benefits, side effects, risk, and mental health, depression anxiety, and mood d/o, movement d/o, and schizophrenia, psychosis, delusions, paranoia, compliance with medications and appointments discuss and educated on all rx decrease Abilify 10 mg at bedtime- stable monitor for psychosis delsuions, paranoia and depression patient reported doing better monitor for psychosis, paranoia, delusions obtain labs PCP AIMS= 5 10/15/23 AIMS= 16 10/12/24 SLUMS= 23 on 10/12/24 patient requested to be seen 5-6 months instead of 3 months r/t stable on rx and educated will be able to sooner if needed 2. depression -take Celexa 20 mg daily set alarms to take medications refer to therapy - refused SSRI side effects discussed including but not limited to, gastric upset, nausea, vomiting, diarrhea and/or constipation, weight changes, sexual side effects including loss of libido, increased suicidal thoughts/behaviors in children and young adults, and serotonin syndrome.Second generation antipsychotics (SGAs) have metabolic syndrome issues with weight gain, increase in prolactin, increased waist circumference, increased lipids, and increased glucose. Thus routine monitoring of weight, metabolic labs, etc. is indicated. A general rank ordering of antipsychotics that have the greatest to the least risk of metabolic effects is olanzapine, quetiapine, risperidone, ziprasidone, and aripiprazole. However, weight gain can occur with all of these drugs and considerable variability exists among patients receiving the same drug regarding the risk of metabolic effects. Anti-psychotic agents not only increase the risk of metabolic disorder, they also increase the risk of CVA, akathisia, and movement disorders including EPS or tardive dyskinesia (more common with first generation antipsychotics) and more. 3. 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 Tardive dyskinesia -AIMS COMPLETED = 7 on 12/01/20 AIMS = 16 reported has mouth movement and hand shakes still AIMS- 5 10/15/23 AIMS= 16 10/12/24 SLUMS= 23 10/12/24 AIMS= 16 off rx 5 months 10/12/24 reported continue to have TD- hands and arm, improved movement mouth and feet Increase Ingrezza 80 mg daily at night- [place] noted movement in hands bilateral, mouth and feet educated on rx Tardive Dyskinesia Dgnostic criteria include history of the use of neuroleptic medication for at least three months. [Or one month in patients 60 years of older] sign symptoms develop during exposure to neuroleptic medication Signs a symptoms include abnormal, involuntary movements of tongue, jaw, trunk, and extremities. Pharmacy: [facility]- 6. memory issues SLUMS= 23 10/12/24 DISCUSS SLUMS and medications options discuss and educated on medicationa and patient would like rx Namenda 10 mg twice a day- for memory 7. Long-term drug therapy Discussion NotesOne in a hundred people will develop schizophrenia, about 75% of people have relapses and continued disability, and a third fail to respond to standard treatment. Positive symptoms include auditory hallucinations, delusions, and thought disorder. Negative symptoms have not been consistently improved by any treatment. Standard treatment of schizophrenia is with antipsychotic drugs yet these can cause adverse effects such as sedation. Behavioral interventions, compliance therapy, and psych educational interventions may improve adherence to antipsychotic medication compared to usual care. 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 1. Schizophrenia - Educated on all medications, benefits, side effects, risk, and mental health, depression anxiety, and mood d/o, movement d/o, and schizophrenia, psychosis, delusions, paranoia, compliance with medications and appointments discuss and educated on all rx Abilify 15 mg at bedtime monitor for psychosis delsuions, paranoia and depression patient reported doing better monitor for psychosis, paranoia, delusions obtain labs PCP AIMS= 5 10/15/23 AIMS= 16 10/12/24 SLUMS= 23 on 10/12/24 patient requested to be seen 5-6 months instead of 3 months r/t stable on rx and educated will be able to sooner if needed 2. depression -take Celexa 20 mg daily set alarms to take medicationsrefer to therapy - refused SSRI side effects discussed including but not limited to, gastric upset, nausea, vomiting, diarrhea and/or constipation, weight changes, sexual side effects including loss of libido, increased suicidal thoughts/behaviors in children and young adults, and serotonin syndrome.Second generation antipsychotics (SGAs) have metabolic syndrome issues with weight gain, increase in prolactin, increased waist circumference, increased lipids, and increased glucose. Thus routine monitoring of weight, metabolic labs, etc. is indicated. A general rank ordering of antipsychotics that have the greatest to the least risk of metabolic effects is olanzapine, quetiapine, risperidone, ziprasidone, and aripiprazole. However, weight gain can occur with all of these drugs and considerable variability exists among patients receiving the same drug regarding the risk of metabolic effects. Anti-psychotic agents not only increase the risk of metabolic disorder, they also increase the risk of CVA, akathisia, and movement disorders including EPS or tardive dyskinesia (more common with first generation antipsychotics) and more. 3. 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 Tardive dyskinesia -AIMS COMPLETED = 7 on 12/01/20 AIMS = 16 reported has mouth movement and hand shakes still AIMS- 5 10/15/23 AIMS= 16 10/12/24 SLUMS= 23 10/12/24 AIMS= 16 off rx 5 months 10/12/24 Increase Ingrezza 60 mg daily at night- [place] noted movement in hands bilateral, mouth and feet educated on rx Tardive Dyskinesia Dgnostic criteria include history of the use of neuroleptic medication for at least three months. [Or one month in patients 60 years of older] sign symptoms develop during exposure to neuroleptic medication Signs a symptoms include abnormal, involuntary movements of tongue, jaw, trunk, and extremities. Pharmacy: [facility]- 6. memory issues SLUMS= 23 10/12/24 DISCUSS SLUMS and medications options discuss and educated on medicationa and patient would like rx Increase Namenda 10 mg twice a day- for memory 7. Long-term drug therapy Discussion NotesOne in a hundred people will develop schizophrenia, about 75% of people have relapses and continued disability, and a third fail to respond to standard treatment. Positive symptoms include auditory hallucinations, delusions, and thought disorder. Negative symptoms have not been consistently improved by any treatment. Standard treatment of schizophrenia is with antipsychotic drugs yet these can cause adverse effects such as sedation. Behavioral interventions, compliance therapy, and psych educational interventions may improve adherence to antipsychotic medication compared to usual care. 10/12/2024 Other longterm (current) drug therapy (ICD-10 - Z79.899) Discussed the importance of medication adherence to prevent relapse and avoidance of substance misuse with patient. 1. Schizophrenia - Educated on all medications, benefits, side effects, risk, and mental health, depression anxiety, and mood d/o, movement d/o, and schizophrenia, psychosis, delusions, paranoia, compliance with medications and appointments hx Terbinafine 250 mg for feet 90 pills spoke with pharmacist at [facility], able to take rx with Abilify discuss and educated on all rx will decrease Abilify 15 mg at bedtime monitor for psychosis delsuions, paranoia and depression patient reported doing better monitor for psychosis, paranoia, delusions obtain labs PCP AIMS= 5 10/15/23 AIMS= 16 10/12/24 SLUMS= 23 on 10/12/24 patient requested to be seen 5-6 months instead of 3 months r/t stable on rx and educated will be able to sooner if needed 2. Mild recurrent major depression -take Celexa 20 mg daily set alarms to take medicationsrefer to therapy - refused SSRI side effects discussed including but not limited to, gastric upset, nausea, vomiting, diarrhea and/or constipation, weight changes, sexual side effects including loss of libido, increased suicidal thoughts/behaviors in children and young adults, and serotonin syndrome.Second generation antipsychotics (SGAs) have metabolic syndrome issues with weight gain, increase in prolactin, increased waist circumference, increased lipids, and increased glucose. Thus routine monitoring of weight, metabolic labs, etc. is indicated. A general rank ordering of antipsychotics that have the greatest to the least risk of metabolic effects is olanzapine, quetiapine, risperidone, ziprasidone, and aripiprazole. However, weight gain can occur with all of these drugs and considerable variability exists among patients receiving the same drug regarding the risk of metabolic effects. Anti-psychotic agents not only increase the risk of metabolic disorder, they also increase the risk of CVA, akathisia, and movement disorders including EPS or tardive dyskinesia (more common with first generation antipsychotics) and more. 3. 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 Tardive dyskinesia -AIMS COMPLETED = 7 on 12/01/20 AIMS = 16 reported has mouth movement and hand shakes still AIMS- 5 10/15/23 AIMS= 16 10/12/24 SLUMS= 23 10/12/24 AIMS= 16 off rx 5 months 10/12/24 PA for [place] If needed- educated on rx PA denied D/C [place] XR 24 MG DAILY- not taken in 5 months Add Ingrezza 40 mg daily in am samples given educated on rx Tardive Dyskinesia Dgnostic criteria include history of the use of neuroleptic medication for at least three months. [Or one month in patients 60 years of older] sign symptoms develop during exposure to neuroleptic medication Signs a symptoms include abnormal, involuntary movements of tongue, jaw, trunk, and extremities. Pharmacy: [facility]- 6. memory issues SLUMS= 23 10/12/24 DISCUSS SLUMS and medications options discuss and educated on medicationa nd patient would like rx will add Namenda 5 mg twice a day 7. Long-term drug therapy Discussion NotesOne in a hundred people will develop schizophrenia, about 75% of people have relapses and continued disability, and a third fail to respond to standard treatment. Positive symptoms include auditory hallucinations, delusions, and thought disorder. Negative symptoms have not been consistently improved by any treatment. Standard treatment of schizophrenia is with antipsychotic drugs yet these can cause adverse effects such as sedation. Behavioral interventions, compliance therapy, and psych educational interventions may improve adherence to antipsychotic medication compared to usual care. 05/27/2025 Memory impairment (ICD-10 - R41.3) Discussed the importance of medication adherence to prevent relapse and avoidance of substance misuse with patient. 1. Schizophrenia - Educated on all medications, benefits, side effects, risk, and mental health, depression anxiety, and mood d/o, movement d/o, and schizophrenia, psychosis, delusions, paranoia, compliance with medications and appointments discuss and educated on all rx Abilify 10 mg at bedtime- stable monitor for psychosis delsuions, paranoia and depression patient reported doing better monitor for psychosis, paranoia, delusions obtain labs PCP AIMS= 5 10/15/23 AIMS= 16 10/12/24 SLUMS= 23 on 10/12/24 patient requested to be seen 5-6 months instead of 3 months r/t stable on rx and educated will be able to sooner if needed 2. depression -take Celexa 20 mg daily set alarms to take medications refer to therapy - refused SSRI side effects discussed including but not limited to, gastric upset, nausea, vomiting, diarrhea and/or constipation, weight changes, sexual side effects including loss of libido, increased suicidal thoughts/behaviors in children and young adults, and serotonin syndrome.Second generation antipsychotics (SGAs) have metabolic syndrome issues with weight gain, increase in prolactin, increased waist circumference, increased lipids, and increased glucose. Thus routine monitoring of weight, metabolic labs, etc. is indicated. A general rank ordering of antipsychotics that have the greatest to the least risk of metabolic effects is olanzapine, quetiapine, risperidone, ziprasidone, and aripiprazole. However, weight gain can occur with all of these drugs and considerable variability exists among patients receiving the same drug regarding the risk of metabolic effects. Anti-psychotic agents not only increase the risk of metabolic disorder, they also increase the risk of CVA, akathisia, and movement disorders including EPS or tardive dyskinesia (more common with first generation antipsychotics) and more. 3. 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 Tardive dyskinesia -AIMS COMPLETED = 7 on 12/01/20 AIMS = 16 reported has mouth movement and hand shakes still AIMS- 5 10/15/23 AIMS= 16 10/12/24 SLUMS= 23 10/12/24 AIMS= 16 off rx 5 months 10/12/24 reported continue to have TD- hands and arm, improved movement mouth and feet Ingrezza 60 mg daily at night- [place] - patient started this dose 05/26/25 Patient reported shaking more at Ingrezza 80 mg dose noted movement in hands bilateral, mouth and feet educated on rx Tardive Dyskinesia Dgnostic criteria include history of the use of neuroleptic medication for at least three months. [Or one month in patients 60 years of older] sign symptoms develop during exposure to neuroleptic medication Signs a symptoms include abnormal, involuntary movements of tongue, jaw, trunk, and extremities. Pharmacy: [facility]- 6. memory issues SLUMS= 23 10/12/24 DISCUSS SLUMS and medications options discuss and educated on medicationa and patient would like rx Namenda 10 mg twice a day- for memory 7. Long-term drug therapy Discussion NotesOne in a hundred people will develop schizophrenia, about 75% of people have relapses and continued disability, and a third fail to respond to standard treatment. Positive symptoms include auditory hallucinations, delusions, and thought disorder. Negative symptoms have not been consistently improved by any treatment. Standard treatment of schizophrenia is with antipsychotic drugs yet these can cause adverse effects such as sedation. Behavioral interventions, compliance therapy, and psych educational interventions may improve adherence to antipsychotic medication compared to usual care. 05/27/2025 Encounter for screening for cardiovascular disorders (ICD-10 - Z13.6) Discussed the importance of medication adherence to prevent relapse and avoidance of substance misuse with patient. 1. Schizophrenia - Educated on all medications, benefits, side effects, risk, and mental health, depression anxiety, and mood d/o, movement d/o, and schizophrenia, psychosis, delusions, paranoia, compliance with medications and appointments discuss and educated on all rx Abilify 10 mg at bedtime- stable monitor for psychosis delsuions, paranoia and depression patient reported doing better monitor for psychosis, paranoia, delusions obtain labs PCP AIMS= 5 10/15/23 AIMS= 16 10/12/24 SLUMS= 23 on 10/12/24 patient requested to be seen 5-6 months instead of 3 months r/t stable on rx and educated will be able to sooner if needed 2. depression -take Celexa 20 mg daily set alarms to take medications refer to therapy - refused SSRI side effects discussed including but not limited to, gastric upset, nausea, vomiting, diarrhea and/or constipation, weight changes, sexual side effects including loss of libido, increased suicidal thoughts/behaviors in children and young adults, and serotonin syndrome.Second generation antipsychotics (SGAs) have metabolic syndrome issues with weight gain, increase in prolactin, increased waist circumference, increased lipids, and increased glucose. Thus routine monitoring of weight, metabolic labs, etc. is indicated. A general rank ordering of antipsychotics that have the greatest to the least risk of metabolic effects is olanzapine, quetiapine, risperidone, ziprasidone, and aripiprazole. However, weight gain can occur with all of these drugs and considerable variability exists among patients receiving the same drug regarding the risk of metabolic effects. Anti-psychotic agents not only increase the risk of metabolic disorder, they also increase the risk of CVA, akathisia, and movement disorders including EPS or tardive dyskinesia (more common with first generation antipsychotics) and more. 3. 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 Tardive dyskinesia -AIMS COMPLETED = 7 on 12/01/20 AIMS = 16 reported has mouth movement and hand shakes still AIMS- 5 10/15/23 AIMS= 16 10/12/24 SLUMS= 23 10/12/24 AIMS= 16 off rx 5 months 10/12/24 reported continue to have TD- hands and arm, improved movement mouth and feet Ingrezza 60 mg daily at night- [place] - patient started this dose 05/26/25 Patient reported shaking more at Ingrezza 80 mg dose noted movement in hands bilateral, mouth and feet educated on rx Tardive Dyskinesia Dgnostic criteria include history of the use of neuroleptic medication for at least three months. [Or one month in patients 60 years of older] sign symptoms develop during exposure to neuroleptic medication Signs a symptoms include abnormal, involuntary movements of tongue, jaw, trunk, and extremities. Pharmacy: [facility]- 6. memory issues SLUMS= 23 10/12/24 DISCUSS SLUMS and medications options discuss and educated on medicationa and patient would like rx Namenda 10 mg twice a day- for memory 7. Long-term drug therapy Discussion NotesOne in a hundred people will develop schizophrenia, about 75% of people have relapses and continued disability, and a third fail to respond to standard treatment. Positive symptoms include auditory hallucinations, delusions, and thought disorder. Negative symptoms have not been consistently improved by any treatment. Standard treatment of schizophrenia is with antipsychotic drugs yet these can cause adverse effects such as sedation. Behavioral interventions, compliance therapy, and psych educational interventions may improve adherence to antipsychotic medication compared to usual care. 10/12/2024 Memory impairment (ICD-10 - R41.3) Discussed the importance of medication adherence to prevent relapse and avoidance of substance misuse with patient. 1. Schizophrenia - Educated on all medications, benefits, side effects, risk, and mental health, depression anxiety, and mood d/o, movement d/o, and schizophrenia, psychosis, delusions, paranoia, compliance with medications and appointments hx Terbinafine 250 mg for feet 90 pills spoke with pharmacist at [facility], able to take rx with Abilify discuss and educated on all rx will decrease Abilify 15 mg at bedtime monitor for psychosis delsuions, paranoia and depression patient reported doing better monitor for psychosis, paranoia, delusions obtain labs PCP AIMS= 5 10/15/23 AIMS= 16 10/12/24 SLUMS= 23 on 10/12/24 patient requested to be seen 5-6 months instead of 3 months r/t stable on rx and educated will be able to sooner if needed 2. Mild recurrent major depression -take Celexa 20 mg daily set alarms to take medicationsrefer to therapy - refused SSRI side effects discussed including but not limited to, gastric upset, nausea, vomiting, diarrhea and/or constipation, weight changes, sexual side effects including loss of libido, increased suicidal thoughts/behaviors in children and young adults, and serotonin syndrome.Second generation antipsychotics (SGAs) have metabolic syndrome issues with weight gain, increase in prolactin, increased waist circumference, increased lipids, and increased glucose. Thus routine monitoring of weight, metabolic labs, etc. is indicated. A general rank ordering of antipsychotics that have the greatest to the least risk of metabolic effects is olanzapine, quetiapine, risperidone, ziprasidone, and aripiprazole. However, weight gain can occur with all of these drugs and considerable variability exists among patients receiving the same drug regarding the risk of metabolic effects. Anti-psychotic agents not only increase the risk of metabolic disorder, they also increase the risk of CVA, akathisia, and movement disorders including EPS or tardive dyskinesia (more common with first generation antipsychotics) and more. 3. 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 Tardive dyskinesia -AIMS COMPLETED = 7 on 12/01/20 AIMS = 16 reported has mouth movement and hand shakes still AIMS- 5 10/15/23 AIMS= 16 10/12/24 SLUMS= 23 10/12/24 AIMS= 16 off rx 5 months 10/12/24 PA for [place] If needed- educated on rx PA denied D/C [place] XR 24 MG DAILY- not taken in 5 months Add Ingrezza 40 mg daily in am samples given educated on rx Tardive Dyskinesia Dgnostic criteria include history of the use of neuroleptic medication for at least three months. [Or one month in patients 60 years of older] sign symptoms develop during exposure to neuroleptic medication Signs a symptoms include abnormal, involuntary movements of tongue, jaw, trunk, and extremities. Pharmacy: [facility]- 6. memory issues SLUMS= 23 10/12/24 DISCUSS SLUMS and medications options discuss and educated on medicationa nd patient would like rx will add Namenda 5 mg twice a day 7. Long-term drug therapy Discussion NotesOne in a hundred people will develop schizophrenia, about 75% of people have relapses and continued disability, and a third fail to respond to standard treatment. Positive symptoms include auditory hallucinations, delusions, and thought disorder. Negative symptoms have not been consistently improved by any treatment. Standard treatment of schizophrenia is with antipsychotic drugs yet these can cause adverse effects such as sedation. Behavioral interventions, compliance therapy, and psych educational interventions may improve adherence to antipsychotic medication compared to usual care. 04/05/2025 Other longterm (current) drug therapy (ICD-10 - Z79.899) Discussed the importance of medication adherence to prevent relapse and avoidance of substance misuse with patient. 1. Schizophrenia - Educated on all medications, benefits, side effects, risk, and mental health, depression anxiety, and mood d/o, movement d/o, and schizophrenia, psychosis, delusions, paranoia, compliance with medications and appointments discuss and educated on all rx decrease Abilify 10 mg at bedtime- stable monitor for psychosis delsuions, paranoia and depression patient reported doing better monitor for psychosis, paranoia, delusions obtain labs PCP AIMS= 5 10/15/23 AIMS= 16 10/12/24 SLUMS= 23 on 10/12/24 patient requested to be seen 5-6 months instead of 3 months r/t stable on rx and educated will be able to sooner if needed 2. depression -take Celexa 20 mg daily set alarms to take medications refer to therapy - refused SSRI side effects discussed including but not limited to, gastric upset, nausea, vomiting, diarrhea and/or constipation, weight changes, sexual side effects including loss of libido, increased suicidal thoughts/behaviors in children and young adults, and serotonin syndrome.Second generation antipsychotics (SGAs) have metabolic syndrome issues with weight gain, increase in prolactin, increased waist circumference, increased lipids, and increased glucose. Thus routine monitoring of weight, metabolic labs, etc. is indicated. A general rank ordering of antipsychotics that have the greatest to the least risk of metabolic effects is olanzapine, quetiapine, risperidone, ziprasidone, and aripiprazole. However, weight gain can occur with all of these drugs and considerable variability exists among patients receiving the same drug regarding the risk of metabolic effects. Anti-psychotic agents not only increase the risk of metabolic disorder, they also increase the risk of CVA, akathisia, and movement disorders including EPS or tardive dyskinesia (more common with first generation antipsychotics) and more. 3. 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 Tardive dyskinesia -AIMS COMPLETED = 7 on 12/01/20 AIMS = 16 reported has mouth movement and hand shakes still AIMS- 5 10/15/23 AIMS= 16 10/12/24 SLUMS= 23 10/12/24 AIMS= 16 off rx 5 months 10/12/24 reported continue to have TD- hands and arm, improved movement mouth and feet Increase Ingrezza 80 mg daily at night- [place] noted movement in hands bilateral, mouth and feet educated on rx Tardive Dyskinesia Dgnostic criteria include history of the use of neuroleptic medication for at least three months. [Or one month in patients 60 years of older] sign symptoms develop during exposure to neuroleptic medication Signs a symptoms include abnormal, involuntary movements of tongue, jaw, trunk, and extremities. Pharmacy: [facility]- 6. memory issues SLUMS= 23 10/12/24 DISCUSS SLUMS and medications options discuss and educated on medicationa and patient would like rx Namenda 10 mg twice a day- for memory 7. Long-term drug therapy Discussion NotesOne in a hundred people will develop schizophrenia, about 75% of people have relapses and continued disability, and a third fail to respond to standard treatment. Positive symptoms include auditory hallucinations, delusions, and thought disorder. Negative symptoms have not been consistently improved by any treatment. Standard treatment of schizophrenia is with antipsychotic drugs yet these can cause adverse effects such as sedation. Behavioral interventions, compliance therapy, and psych educational interventions may improve adherence to antipsychotic medication compared to usual care. 01/04/2025 Other longterm (current) drug therapy (ICD-10 - Z79.899) Discussed the importance of medication adherence to prevent relapse and avoidance of substance misuse with patient. 1. Schizophrenia - Educated on all medications, benefits, side effects, risk, and mental health, depression anxiety, and mood d/o, movement d/o, and schizophrenia, psychosis, delusions, paranoia, compliance with medications and appointments discuss and educated on all rx Abilify 15 mg at bedtime monitor for psychosis delsuions, paranoia and depression patient reported doing better monitor for psychosis, paranoia, delusions obtain labs PCP AIMS= 5 10/15/23 AIMS= 16 10/12/24 SLUMS= 23 on 10/12/24 patient requested to be seen 5-6 months instead of 3 months r/t stable on rx and educated will be able to sooner if needed 2. depression -take Celexa 20 mg daily set alarms to take medicationsrefer to therapy - refused SSRI side effects discussed including but not limited to, gastric upset, nausea, vomiting, diarrhea and/or constipation, weight changes, sexual side effects including loss of libido, increased suicidal thoughts/behaviors in children and young adults, and serotonin syndrome.Second generation antipsychotics (SGAs) have metabolic syndrome issues with weight gain, increase in prolactin, increased waist circumference, increased lipids, and increased glucose. Thus routine monitoring of weight, metabolic labs, etc. is indicated. A general rank ordering of antipsychotics that have the greatest to the least risk of metabolic effects is olanzapine, quetiapine, risperidone, ziprasidone, and aripiprazole. However, weight gain can occur with all of these drugs and considerable variability exists among patients receiving the same drug regarding the risk of metabolic effects. Anti-psychotic agents not only increase the risk of metabolic disorder, they also increase the risk of CVA, akathisia, and movement disorders including EPS or tardive dyskinesia (more common with first generation antipsychotics) and more. 3. 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 Tardive dyskinesia -AIMS COMPLETED = 7 on 12/01/20 AIMS = 16 reported has mouth movement and hand shakes still AIMS- 5 10/15/23 AIMS= 16 10/12/24 SLUMS= 23 10/12/24 AIMS= 16 off rx 5 months 10/12/24 Increase Ingrezza 60 mg daily at night- [place] noted movement in hands bilateral, mouth and feet educated on rx Tardive Dyskinesia Dgnostic criteria include history of the use of neuroleptic medication for at least three months. [Or one month in patients 60 years of older] sign symptoms develop during exposure to neuroleptic medication Signs a symptoms include abnormal, involuntary movements of tongue, jaw, trunk, and extremities. Pharmacy: [facility]- 6. memory issues SLUMS= 23 10/12/24 DISCUSS SLUMS and medications options discuss and educated on medicationa and patient would like rx Increase Namenda 10 mg twice a day- for memory 7. Long-term drug therapy Discussion NotesOne in a hundred people will develop schizophrenia, about 75% of people have relapses and continued disability, and a third fail to respond to standard treatment. Positive symptoms include auditory hallucinations, delusions, and thought disorder. Negative symptoms have not been consistently improved by any treatment. Standard treatment of schizophrenia is with antipsychotic drugs yet these can cause adverse effects such as sedation. Behavioral interventions, compliance therapy, and psych educational interventions may improve adherence to antipsychotic medication compared to usual care. 01/04/2025 Memory impairment (ICD-10 - R41.3) Discussed the importance of medication adherence to prevent relapse and avoidance of substance misuse with patient. 1. Schizophrenia - Educated on all medications, benefits, side effects, risk, and mental health, depression anxiety, and mood d/o, movement d/o, and schizophrenia, psychosis, delusions, paranoia, compliance with medications and appointments discuss and educated on all rx Abilify 15 mg at bedtime monitor for psychosis delsuions, paranoia and depression patient reported doing better monitor for psychosis, paranoia, delusions obtain labs PCP AIMS= 5 10/15/23 AIMS= 16 10/12/24 SLUMS= 23 on 10/12/24 patient requested to be seen 5-6 months instead of 3 months r/t stable on rx and educated will be able to sooner if needed 2. depression -take Celexa 20 mg daily set alarms to take medicationsrefer to therapy - refused SSRI side effects discussed including but not limited to, gastric upset, nausea, vomiting, diarrhea and/or constipation, weight changes, sexual side effects including loss of libido, increased suicidal thoughts/behaviors in children and young adults, and serotonin syndrome.Second generation antipsychotics (SGAs) have metabolic syndrome issues with weight gain, increase in prolactin, increased waist circumference, increased lipids, and increased glucose. Thus routine monitoring of weight, metabolic labs, etc. is indicated. A general rank ordering of antipsychotics that have the greatest to the least risk of metabolic effects is olanzapine, quetiapine, risperidone, ziprasidone, and aripiprazole. However, weight gain can occur with all of these drugs and considerable variability exists among patients receiving the same drug regarding the risk of metabolic effects. Anti-psychotic agents not only increase the risk of metabolic disorder, they also increase the risk of CVA, akathisia, and movement disorders including EPS or tardive dyskinesia (more common with first generation antipsychotics) and more. 3. 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 Tardive dyskinesia -AIMS COMPLETED = 7 on 12/01/20 AIMS = 16 reported has mouth movement and hand shakes still AIMS- 5 10/15/23 AIMS= 16 10/12/24 SLUMS= 23 10/12/24 AIMS= 16 off rx 5 months 10/12/24 Increase Ingrezza 60 mg daily at night- [place] noted movement in hands bilateral, mouth and feet educated on rx Tardive Dyskinesia Dgnostic criteria include history of the use of neuroleptic medication for at least three months. [Or one month in patients 60 years of older] sign symptoms develop during exposure to neuroleptic medication Signs a symptoms include abnormal, involuntary movements of tongue, jaw, trunk, and extremities. Pharmacy: [facility]- 6. memory issues SLUMS= 23 10/12/24 DISCUSS SLUMS and medications options discuss and educated on medicationa and patient would like rx Increase Namenda 10 mg twice a day- for memory 7. Long-term drug therapy Discussion NotesOne in a hundred people will develop schizophrenia, about 75% of people have relapses and continued disability, and a third fail to respond to standard treatment. Positive symptoms include auditory hallucinations, delusions, and thought disorder. Negative symptoms have not been consistently improved by any treatment. Standard treatment of schizophrenia is with antipsychotic drugs yet these can cause adverse effects such as sedation. Behavioral interventions, compliance therapy, and psych educational interventions may improve adherence to antipsychotic medication compared to usual care. 04/05/2025 Memory impairment (ICD-10 - R41.3) Discussed the importance of medication adherence to prevent relapse and avoidance of substance misuse with patient. 1. Schizophrenia - Educated on all medications, benefits, side effects, risk, and mental health, depression anxiety, and mood d/o, movement d/o, and schizophrenia, psychosis, delusions, paranoia, compliance with medications and appointments discuss and educated on all rx decrease Abilify 10 mg at bedtime- stable monitor for psychosis delsuions, paranoia and depression patient reported doing better monitor for psychosis, paranoia, delusions obtain labs PCP AIMS= 5 10/15/23 AIMS= 16 10/12/24 SLUMS= 23 on 10/12/24 patient requested to be seen 5-6 months instead of 3 months r/t stable on rx and educated will be able to sooner if needed 2. depression -take Celexa 20 mg daily set alarms to take medications refer to therapy - refused SSRI side effects discussed including but not limited to, gastric upset, nausea, vomiting, diarrhea and/or constipation, weight changes, sexual side effects including loss of libido, increased suicidal thoughts/behaviors in children and young adults, and serotonin syndrome.Second generation antipsychotics (SGAs) have metabolic syndrome issues with weight gain, increase in prolactin, increased waist circumference, increased lipids, and increased glucose. Thus routine monitoring of weight, metabolic labs, etc. is indicated. A general rank ordering of antipsychotics that have the greatest to the least risk of metabolic effects is olanzapine, quetiapine, risperidone, ziprasidone, and aripiprazole. However, weight gain can occur with all of these drugs and considerable variability exists among patients receiving the same drug regarding the risk of metabolic effects. Anti-psychotic agents not only increase the risk of metabolic disorder, they also increase the risk of CVA, akathisia, and movement disorders including EPS or tardive dyskinesia (more common with first generation antipsychotics) and more. 3. 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 Tardive dyskinesia -AIMS COMPLETED = 7 on 12/01/20 AIMS = 16 reported has mouth movement and hand shakes still AIMS- 5 10/15/23 AIMS= 16 10/12/24 SLUMS= 23 10/12/24 AIMS= 16 off rx 5 months 10/12/24 reported continue to have TD- hands and arm, improved movement mouth and feet Increase Ingrezza 80 mg daily at night- [place] noted movement in hands bilateral, mouth and feet educated on rx Tardive Dyskinesia Dgnostic criteria include history of the use of neuroleptic medication for at least three months. [Or one month in patients 60 years of older] sign symptoms develop during exposure to neuroleptic medication Signs a symptoms include abnormal, involuntary movements of tongue, jaw, trunk, and extremities. Pharmacy: [facility]- 6. memory issues SLUMS= 23 10/12/24 DISCUSS SLUMS and medications options discuss and educated on medicationa and patient would like rx Namenda 10 mg twice a day- for memory 7. Long-term drug therapy Discussion NotesOne in a hundred people will develop schizophrenia, about 75% of people have relapses and continued disability, and a third fail to respond to standard treatment. Positive symptoms include auditory hallucinations, delusions, and thought disorder. Negative symptoms have not been consistently improved by any treatment. Standard treatment of schizophrenia is with antipsychotic drugs yet these can cause adverse effects such as sedation. Behavioral interventions, compliance therapy, and psych educational interventions may improve adherence to antipsychotic medication compared to usual care. 05/27/2025 Encounter for screening for depression (ICD-10 - Z13.31) Discussed the importance of medication adherence to prevent relapse and avoidance of substance misuse with patient. 1. Schizophrenia - Educated on all medications, benefits, side effects, risk, and mental health, depression anxiety, and mood d/o, movement d/o, and schizophrenia, psychosis, delusions, paranoia, compliance with medications and appointments discuss and educated on all rx Abilify 10 mg at bedtime- stable monitor for psychosis delsuions, paranoia and depression patient reported doing better monitor for psychosis, paranoia, delusions obtain labs PCP AIMS= 5 10/15/23 AIMS= 16 10/12/24 SLUMS= 23 on 10/12/24 patient requested to be seen 5-6 months instead of 3 months r/t stable on rx and educated will be able to sooner if needed 2. depression -take Celexa 20 mg daily set alarms to take medications refer to therapy - refused SSRI side effects discussed including but not limited to, gastric upset, nausea, vomiting, diarrhea and/or constipation, weight changes, sexual side effects including loss of libido, increased suicidal thoughts/behaviors in children and young adults, and serotonin syndrome.Second generation antipsychotics (SGAs) have metabolic syndrome issues with weight gain, increase in prolactin, increased waist circumference, increased lipids, and increased glucose. Thus routine monitoring of weight, metabolic labs, etc. is indicated. A general rank ordering of antipsychotics that have the greatest to the least risk of metabolic effects is olanzapine, quetiapine, risperidone, ziprasidone, and aripiprazole. However, weight gain can occur with all of these drugs and considerable variability exists among patients receiving the same drug regarding the risk of metabolic effects. Anti-psychotic agents not only increase the risk of metabolic disorder, they also increase the risk of CVA, akathisia, and movement disorders including EPS or tardive dyskinesia (more common with first generation antipsychotics) and more. 3. 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 Tardive dyskinesia -AIMS COMPLETED = 7 on 12/01/20 AIMS = 16 reported has mouth movement and hand shakes still AIMS- 5 10/15/23 AIMS= 16 10/12/24 SLUMS= 23 10/12/24 AIMS= 16 off rx 5 months 10/12/24 reported continue to have TD- hands and arm, improved movement mouth and feet Ingrezza 60 mg daily at night- [place] - patient started this dose 05/26/25 Patient reported shaking more at Ingrezza 80 mg dose noted movement in hands bilateral, mouth and feet educated on rx Tardive Dyskinesia Dgnostic criteria include history of the use of neuroleptic medication for at least three months. [Or one month in patients 60 years of older] sign symptoms develop during exposure to neuroleptic medication Signs a symptoms include abnormal, involuntary movements of tongue, jaw, trunk, and extremities. Pharmacy: [facility]- 6. memory issues SLUMS= 23 10/12/24 DISCUSS SLUMS and medications options discuss and educated on medicationa and patient would like rx Namenda 10 mg twice a day- for memory 7. Long-term drug therapy Discussion NotesOne in a hundred people will develop schizophrenia, about 75% of people have relapses and continued disability, and a third fail to respond to standard treatment. Positive symptoms include auditory hallucinations, delusions, and thought disorder. Negative symptoms have not been consistently improved by any treatment. Standard treatment of schizophrenia is with antipsychotic drugs yet these can cause adverse effects such as sedation. Behavioral interventions, compliance therapy, and psych educational interventions may improve adherence to antipsychotic medication compared to usual care. 05/27/2025 Negative depression screening (ICD-10 - Z13.31) Discussed the importance of medication adherence to prevent relapse and avoidance of substance misuse with patient. 1. Schizophrenia - Educated on all medications, benefits, side effects, risk, and mental health, depression anxiety, and mood d/o, movement d/o, and schizophrenia, psychosis, delusions, paranoia, compliance with medications and appointments discuss and educated on all rx Abilify 10 mg at bedtime- stable monitor for psychosis delsuions, paranoia and depression patient reported doing better monitor for psychosis, paranoia, delusions obtain labs PCP AIMS= 5 10/15/23 AIMS= 16 10/12/24 SLUMS= 23 on 10/12/24 patient requested to be seen 5-6 months instead of 3 months r/t stable on rx and educated will be able to sooner if needed 2. depression -take Celexa 20 mg daily set alarms to take medications refer to therapy - refused SSRI side effects discussed including but not limited to, gastric upset, nausea, vomiting, diarrhea and/or constipation, weight changes, sexual side effects including loss of libido, increased suicidal thoughts/behaviors in children and young adults, and serotonin syndrome.Second generation antipsychotics (SGAs) have metabolic syndrome issues with weight gain, increase in prolactin, increased waist circumference, increased lipids, and increased glucose. Thus routine monitoring of weight, metabolic labs, etc. is indicated. A general rank ordering of antipsychotics that have the greatest to the least risk of metabolic effects is olanzapine, quetiapine, risperidone, ziprasidone, and aripiprazole. However, weight gain can occur with all of these drugs and considerable variability exists among patients receiving the same drug regarding the risk of metabolic effects. Anti-psychotic agents not only increase the risk of metabolic disorder, they also increase the risk of CVA, akathisia, and movement disorders including EPS or tardive dyskinesia (more common with first generation antipsychotics) and more. 3. 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 Tardive dyskinesia -AIMS COMPLETED = 7 on 12/01/20 AIMS = 16 reported has mouth movement and hand shakes still AIMS- 5 10/15/23 AIMS= 16 10/12/24 SLUMS= 23 10/12/24 AIMS= 16 off rx 5 months 10/12/24 reported continue to have TD- hands and arm, improved movement mouth and feet Ingrezza 60 mg daily at night- [place] - patient started this dose 05/26/25 Patient reported shaking more at Ingrezza 80 mg dose noted movement in hands bilateral, mouth and feet educated on rx Tardive Dyskinesia Dgnostic criteria include history of the use of neuroleptic medication for at least three months. [Or one month in patients 60 years of older] sign symptoms develop during exposure to neuroleptic medication Signs a symptoms include abnormal, involuntary movements of tongue, jaw, trunk, and extremities. Pharmacy: [facility]- 6. memory issues SLUMS= 23 10/12/24 DISCUSS SLUMS and medications options discuss and educated on medicationa and patient would like rx Namenda 10 mg twice a day- for memory 7. Long-term drug therapy Discussion NotesOne in a hundred people will develop schizophrenia, about 75% of people have relapses and continued disability, and a third fail to respond to standard treatment. Positive symptoms include auditory hallucinations, delusions, and thought disorder. Negative symptoms have not been consistently improved by any treatment. Standard treatment of schizophrenia is with antipsychotic drugs yet these can cause adverse effects such as sedation. Behavioral interventions, compliance therapy, and psych educational interventions may improve adherence to antipsychotic medication compared to usual care. 04/05/2025 Encounter for screening for cardiovascular disorders (ICD-10 - Z13.6) Discussed the importance of medication adherence to prevent relapse and avoidance of substance misuse with patient. 1. Schizophrenia - Educated on all medications, benefits, side effects, risk, and mental health, depression anxiety, and mood d/o, movement d/o, and schizophrenia, psychosis, delusions, paranoia, compliance with medications and appointments discuss and educated on all rx decrease Abilify 10 mg at bedtime- stable monitor for psychosis delsuions, paranoia and depression patient reported doing better monitor for psychosis, paranoia, delusions obtain labs PCP AIMS= 5 10/15/23 AIMS= 16 10/12/24 SLUMS= 23 on 10/12/24 patient requested to be seen 5-6 months instead of 3 months r/t stable on rx and educated will be able to sooner if needed 2. depression -take Celexa 20 mg daily set alarms to take medications refer to therapy - refused SSRI side effects discussed including but not limited to, gastric upset, nausea, vomiting, diarrhea and/or constipation, weight changes, sexual side effects including loss of libido, increased suicidal thoughts/behaviors in children and young adults, and serotonin syndrome.Second generation antipsychotics (SGAs) have metabolic syndrome issues with weight gain, increase in prolactin, increased waist circumference, increased lipids, and increased glucose. Thus routine monitoring of weight, metabolic labs, etc. is indicated. A general rank ordering of antipsychotics that have the greatest to the least risk of metabolic effects is olanzapine, quetiapine, risperidone, ziprasidone, and aripiprazole. However, weight gain can occur with all of these drugs and considerable variability exists among patients receiving the same drug regarding the risk of metabolic effects. Anti-psychotic agents not only increase the risk of metabolic disorder, they also increase the risk of CVA, akathisia, and movement disorders including EPS or tardive dyskinesia (more common with first generation antipsychotics) and more. 3. 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 Tardive dyskinesia -AIMS COMPLETED = 7 on 12/01/20 AIMS = 16 reported has mouth movement and hand shakes still AIMS- 5 10/15/23 AIMS= 16 10/12/24 SLUMS= 23 10/12/24 AIMS= 16 off rx 5 months 10/12/24 reported continue to have TD- hands and arm, improved movement mouth and feet Increase Ingrezza 80 mg daily at night- [place] noted movement in hands bilateral, mouth and feet educated on rx Tardive Dyskinesia Dgnostic criteria include history of the use of neuroleptic medication for at least three months. [Or one month in patients 60 years of older] sign symptoms develop during exposure to neuroleptic medication Signs a symptoms include abnormal, involuntary movements of tongue, jaw, trunk, and extremities. Pharmacy: [facility]- 6. memory issues SLUMS= 23 10/12/24 DISCUSS SLUMS and medications options discuss and educated on medicationa and patient would like rx Namenda 10 mg twice a day- for memory 7. Long-term drug therapy Discussion NotesOne in a hundred people will develop schizophrenia, about 75% of people have relapses and continued disability, and a third fail to respond to standard treatment. Positive symptoms include auditory hallucinations, delusions, and thought disorder. Negative symptoms have not been consistently improved by any treatment. Standard treatment of schizophrenia is with antipsychotic drugs yet these can cause adverse effects such as sedation. Behavioral interventions, compliance therapy, and psych educational interventions may improve adherence to antipsychotic medication compared to usual care. 01/04/2025 Encounter for screening for cardiovascular disorders (ICD-10 - Z13.6) Discussed the importance of medication adherence to prevent relapse and avoidance of substance misuse with patient. 1. Schizophrenia - Educated on all medications, benefits, side effects, risk, and mental health, depression anxiety, and mood d/o, movement d/o, and schizophrenia, psychosis, delusions, paranoia, compliance with medications and appointments discuss and educated on all rx Abilify 15 mg at bedtime monitor for psychosis delsuions, paranoia and depression patient reported doing better monitor for psychosis, paranoia, delusions obtain labs PCP AIMS= 5 10/15/23 AIMS= 16 10/12/24 SLUMS= 23 on 10/12/24 patient requested to be seen 5-6 months instead of 3 months r/t stable on rx and educated will be able to sooner if needed 2. depression -take Celexa 20 mg daily set alarms to take medicationsrefer to therapy - refused SSRI side effects discussed including but not limited to, gastric upset, nausea, vomiting, diarrhea and/or constipation, weight changes, sexual side effects including loss of libido, increased suicidal thoughts/behaviors in children and young adults, and serotonin syndrome.Second generation antipsychotics (SGAs) have metabolic syndrome issues with weight gain, increase in prolactin, increased waist circumference, increased lipids, and increased glucose. Thus routine monitoring of weight, metabolic labs, etc. is indicated. A general rank ordering of antipsychotics that have the greatest to the least risk of metabolic effects is olanzapine, quetiapine, risperidone, ziprasidone, and aripiprazole. However, weight gain can occur with all of these drugs and considerable variability exists among patients receiving the same drug regarding the risk of metabolic effects. Anti-psychotic agents not only increase the risk of metabolic disorder, they also increase the risk of CVA, akathisia, and movement disorders including EPS or tardive dyskinesia (more common with first generation antipsychotics) and more. 3. 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 Tardive dyskinesia -AIMS COMPLETED = 7 on 12/01/20 AIMS = 16 reported has mouth movement and hand shakes still AIMS- 5 10/15/23 AIMS= 16 10/12/24 SLUMS= 23 10/12/24 AIMS= 16 off rx 5 months 10/12/24 Increase Ingrezza 60 mg daily at night- [place] noted movement in hands bilateral, mouth and feet educated on rx Tardive Dyskinesia Dgnostic criteria include history of the use of neuroleptic medication for at least three months. [Or one month in patients 60 years of older] sign symptoms develop during exposure to neuroleptic medication Signs a symptoms include abnormal, involuntary movements of tongue, jaw, trunk, and extremities. Pharmacy: [facility]- 6. memory issues SLUMS= 23 10/12/24 DISCUSS SLUMS and medications options discuss and educated on medicationa and patient would like rx Increase Namenda 10 mg twice a day- for memory 7. Long-term drug therapy Discussion NotesOne in a hundred people will develop schizophrenia, about 75% of people have relapses and continued disability, and a third fail to respond to standard treatment. Positive symptoms include auditory hallucinations, delusions, and thought disorder. Negative symptoms have not been consistently improved by any treatment. Standard treatment of schizophrenia is with antipsychotic drugs yet these can cause adverse effects such as sedation. Behavioral interventions, compliance therapy, and psych educational interventions may improve adherence to antipsychotic medication compared to usual care. 04/05/2025 Encounter for screening for depression (ICD-10 - Z13.31) Discussed the importance of medication adherence to prevent relapse and avoidance of substance misuse with patient. 1. Schizophrenia - Educated on all medications, benefits, side effects, risk, and mental health, depression anxiety, and mood d/o, movement d/o, and schizophrenia, psychosis, delusions, paranoia, compliance with medications and appointments discuss and educated on all rx decrease Abilify 10 mg at bedtime- stable monitor for psychosis delsuions, paranoia and depression patient reported doing better monitor for psychosis, paranoia, delusions obtain labs PCP AIMS= 5 10/15/23 AIMS= 16 10/12/24 SLUMS= 23 on 10/12/24 patient requested to be seen 5-6 months instead of 3 months r/t stable on rx and educated will be able to sooner if needed 2. depression -take Celexa 20 mg daily set alarms to take medications refer to therapy - refused SSRI side effects discussed including but not limited to, gastric upset, nausea, vomiting, diarrhea and/or constipation, weight changes, sexual side effects including loss of libido, increased suicidal thoughts/behaviors in children and young adults, and serotonin syndrome.Second generation antipsychotics (SGAs) have metabolic syndrome issues with weight gain, increase in prolactin, increased waist circumference, increased lipids, and increased glucose. Thus routine monitoring of weight, metabolic labs, etc. is indicated. A general rank ordering of antipsychotics that have the greatest to the least risk of metabolic effects is olanzapine, quetiapine, risperidone, ziprasidone, and aripiprazole. However, weight gain can occur with all of these drugs and considerable variability exists among patients receiving the same drug regarding the risk of metabolic effects. Anti-psychotic agents not only increase the risk of metabolic disorder, they also increase the risk of CVA, akathisia, and movement disorders including EPS or tardive dyskinesia (more common with first generation antipsychotics) and more. 3. 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 Tardive dyskinesia -AIMS COMPLETED = 7 on 12/01/20 AIMS = 16 reported has mouth movement and hand shakes still AIMS- 5 10/15/23 AIMS= 16 10/12/24 SLUMS= 23 10/12/24 AIMS= 16 off rx 5 months 10/12/24 reported continue to have TD- hands and arm, improved movement mouth and feet Increase Ingrezza 80 mg daily at night- [place] noted movement in hands bilateral, mouth and feet educated on rx Tardive Dyskinesia Dgnostic criteria include history of the use of neuroleptic medication for at least three months. [Or one month in patients 60 years of older] sign symptoms develop during exposure to neuroleptic medication Signs a symptoms include abnormal, involuntary movements of tongue, jaw, trunk, and extremities. Pharmacy: [facility]- 6. memory issues SLUMS= 23 10/12/24 DISCUSS SLUMS and medications options discuss and educated on medicationa and patient would like rx Namenda 10 mg twice a day- for memory 7. Long-term drug therapy Discussion NotesOne in a hundred people will develop schizophrenia, about 75% of people have relapses and continued disability, and a third fail to respond to standard treatment. Positive symptoms include auditory hallucinations, delusions, and thought disorder. Negative symptoms have not been consistently improved by any treatment. Standard treatment of schizophrenia is with antipsychotic drugs yet these can cause adverse effects such as sedation. Behavioral interventions, compliance therapy, and psych educational interventions may improve adherence to antipsychotic medication compared to usual care. 01/04/2025 Encounter for screening for depression (ICD-10 - Z13.31) Discussed the importance of medication adherence to prevent relapse and avoidance of substance misuse with patient. 1. Schizophrenia - Educated on all medications, benefits, side effects, risk, and mental health, depression anxiety, and mood d/o, movement d/o, and schizophrenia, psychosis, delusions, paranoia, compliance with medications and appointments discuss and educated on all rx Abilify 15 mg at bedtime monitor for psychosis delsuions, paranoia and depression patient reported doing better monitor for psychosis, paranoia, delusions obtain labs PCP AIMS= 5 1/16/24 AIMS= 16 10/12/24 SLUMS= 23 on 10/12/24 patient requested to be seen 5-6 months instead of 3 months r/t stable on rx and educated will be able to sooner if needed 2. depression -take Celexa 20 mg daily set alarms to take medicationsrefer to therapy - refused SSRI side effects discussed including but not limited to, gastric upset, nausea, vomiting, diarrhea and/or constipation, weight changes, sexual side effects including loss of libido, increased suicidal thoughts/behaviors in children and young adults, and serotonin syndrome.Second generation antipsychotics (SGAs) have metabolic syndrome issues with weight gain, increase in prolactin, increased waist circumference, increased lipids, and increased glucose. Thus routine monitoring of weight, metabolic labs, etc. is indicated. A general rank ordering of antipsychotics that have the greatest to the least risk of metabolic effects is olanzapine, quetiapine, risperidone, ziprasidone, and aripiprazole. However, weight gain can occur with all of these drugs and considerable variability exists among patients receiving the same drug regarding the risk of metabolic effects. Anti-psychotic agents not only increase the risk of metabolic disorder, they also increase the risk of CVA, akathisia, and movement disorders including EPS or tardive dyskinesia (more common with first generation antipsychotics) and more. 3. 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 Tardive dyskinesia -AIMS COMPLETED = 7 on 12/01/20 AIMS = 16 reported has mouth movement and hand shakes still AIMS- 5 10/15/23 AIMS= 16 10/12/24 SLUMS= 23 10/12/24 AIMS= 16 off rx 5 months 10/12/24 Increase Ingrezza 60 mg daily at night- [place] noted movement in hands bilateral, mouth and feet educated on rx Tardive Dyskinesia Dgnostic criteria include history of the use of neuroleptic medication for at least three months. [Or one month in patients 60 years of older] sign symptoms develop during exposure to neuroleptic medication Signs a symptoms include abnormal, involuntary movements of tongue, jaw, trunk, and extremities. Pharmacy: [facility]- 6. memory issues SLUMS= 23 10/12/24 DISCUSS SLUMS and medications options discuss and educated on medicationa and patient would like rx Increase Namenda 10 mg twice a day- for memory 7. Long-term drug therapy Discussion NotesOne in a hundred people will develop schizophrenia, about 75% of people have relapses and continued disability, and a third fail to respond to standard treatment. Positive symptoms include auditory hallucinations, delusions, and thought disorder. Negative symptoms have not been consistently improved by any treatment. Standard treatment of schizophrenia is with antipsychotic drugs yet these can cause adverse effects such as sedation. Behavioral interventions, compliance therapy, and psych educational interventions may improve adherence to antipsychotic medication compared to usual care. 04/05/2025 Negative depression screening (ICD-10 - Z13.31) Discussed the importance of medication adherence to prevent relapse and avoidance of substance misuse with patient. 1. Schizophrenia - Educated on all medications, benefits, side effects, risk, and mental health, depression anxiety, and mood d/o, movement d/o, and schizophrenia, psychosis, delusions, paranoia, compliance with medications and appointments discuss and educated on all rx decrease Abilify 10 mg at bedtime- stable monitor for psychosis delsuions, paranoia and depression patient reported doing better monitor for psychosis, paranoia, delusions obtain labs PCP AIMS= 5 10/15/23 AIMS= 16 10/12/24 SLUMS= 23 on 10/12/24 patient requested to be seen 5-6 months instead of 3 months r/t stable on rx and educated will be able to sooner if needed 2. depression -take Celexa 20 mg daily set alarms to take medications refer to therapy - refused SSRI side effects discussed including but not limited to, gastric upset, nausea, vomiting, diarrhea and/or constipation, weight changes, sexual side effects including loss of libido, increased suicidal thoughts/behaviors in children and young adults, and serotonin syndrome.Second generation antipsychotics (SGAs) have metabolic syndrome issues with weight gain, increase in prolactin, increased waist circumference, increased lipids, and increased glucose. Thus routine monitoring of weight, metabolic labs, etc. is indicated. A general rank ordering of antipsychotics that have the greatest to the least risk of metabolic effects is olanzapine, quetiapine, risperidone, ziprasidone, and aripiprazole. However, weight gain can occur with all of these drugs and considerable variability exists among patients receiving the same drug regarding the risk of metabolic effects. Anti-psychotic agents not only increase the risk of metabolic disorder, they also increase the risk of CVA, akathisia, and movement disorders including EPS or tardive dyskinesia (more common with first generation antipsychotics) and more. 3. 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 Tardive dyskinesia -AIMS COMPLETED = 7 on 12/01/20 AIMS = 16 reported has mouth movement and hand shakes still AIMS- 5 10/15/23 AIMS= 16 10/12/24 SLUMS= 23 10/12/24 AIMS= 16 off rx 5 months 10/12/24 reported continue to have TD- hands and arm, improved movement mouth and feet Increase Ingrezza 80 mg daily at night- [place] noted movement in hands bilateral, mouth and feet educated on rx Tardive Dyskinesia Dgnostic criteria include history of the use of neuroleptic medication for at least three months. [Or one month in patients 60 years of older] sign symptoms develop during exposure to neuroleptic medication Signs a symptoms include abnormal, involuntary movements of tongue, jaw, trunk, and extremities. Pharmacy: [facility]- 6. memory issues SLUMS= 23 10/12/24 DISCUSS SLUMS and medications options discuss and educated on medicationa and patient would like rx Namenda 10 mg twice a day- for memory 7. Long-term drug therapy Discussion NotesOne in a hundred people will develop schizophrenia, about 75% of people have relapses and continued disability, and a third fail to respond to standard treatment. Positive symptoms include auditory hallucinations, delusions, and thought disorder. Negative symptoms have not been consistently improved by any treatment. Standard treatment of schizophrenia is with antipsychotic drugs yet these can cause adverse effects such as sedation. Behavioral interventions, compliance therapy, and psych educational interventions may improve adherence to antipsychotic medication compared to usual care. 10/12/2024 Other referral to the local chapter or national office of the Alzheimer's Association ( ; http://www.alz. org), the Alzheimer's Disease Education and Referral Center (ADEAR) ( ; http://www.ministerio. nih.gov/Alzheim ers/), Notes: referral to the local chapter or national office of the Alzheimer's Association ( ; http://www.alz. org), the Alzheimer's Disease Education and Referral Center (ADEAR) ( ; http://www.ministerio. nih.gov/Alzheim ers/), Discussed the importance of medication adherence to prevent relapse and avoidance of substance misuse with patient. 1. Schizophrenia - Educated on all medications, benefits, side effects, risk, and mental health, depression anxiety, and mood d/o, movement d/o, and schizophrenia, psychosis, delusions, paranoia, compliance with medications and appointments hx Terbinafine 250 mg for feet 90 pills spoke with pharmacist at [facility], able to take rx with Abilify discuss and educated on all rx will decrease Abilify 15 mg at bedtime monitor for psychosis delsuions, paranoia and depression patient reported doing better monitor for psychosis, paranoia, delusions obtain labs PCP AIMS= 5 10/15/23 AIMS= 16 10/12/24 SLUMS= 23 on 10/12/24 patient requested to be seen 5-6 months instead of 3 months r/t stable on rx and educated will be able to sooner if needed 2. Mild recurrent major depression -take Celexa 20 mg daily set alarms to take medicationsrefer to therapy - refused SSRI side effects discussed including but not limited to, gastric upset, nausea, vomiting, diarrhea and/or constipation, weight changes, sexual side effects including loss of libido, increased suicidal thoughts/behaviors in children and young adults, and serotonin syndrome.Second generation antipsychotics (SGAs) have metabolic syndrome issues with weight gain, increase in prolactin, increased waist circumference, increased lipids, and increased glucose. Thus routine monitoring of weight, metabolic labs, etc. is indicated. A general rank ordering of antipsychotics that have the greatest to the least risk of metabolic effects is olanzapine, quetiapine, risperidone, ziprasidone, and aripiprazole. However, weight gain can occur with all of these drugs and considerable variability exists among patients receiving the same drug regarding the risk of metabolic effects. Anti-psychotic agents not only increase the risk of metabolic disorder, they also increase the risk of CVA, akathisia, and movement disorders including EPS or tardive dyskinesia (more common with first generation antipsychotics) and more. 3. 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 Tardive dyskinesia -AIMS COMPLETED = 7 on 12/01/20 AIMS = 16 reported has mouth movement and hand shakes still AIMS- 5 10/15/23 AIMS= 16 10/12/24 SLUMS= 23 10/12/24 AIMS= 16 off rx 5 months 10/12/24 PA for Austedo If needed- educated on rx PA denied D/C Austedo XR 24 MG DAILY- not taken in 5 months Add Ingrezza 40 mg daily in am samples given educated on rx Tardive Dyskinesia Dgnostic criteria include history of the use of neuroleptic medication for at least three months. [Or one month in patients 60 years of older] sign symptoms develop during exposure to neuroleptic medication Signs a symptoms include abnormal, involuntary movements of tongue, jaw, trunk, and extremities. Pharmacy: [facility]- 6. memory issues SLUMS= 10/12/24 DISCUSS SLUMS and medications options discuss and educated on medicationa nd patient would like rx will add Namenda 5 mg twice a day 7. Long-term drug therapy Discussion NotesOne in a hundred people will develop schizophrenia, about 75% of people have relapses and continued disability, and a third fail to respond to standard treatment. Positive symptoms include auditory hallucinations, delusions, and thought disorder. Negative symptoms have not been consistently improved by any treatment. Standard treatment of schizophrenia is with antipsychotic drugs yet these can cause adverse effects such as sedation. Behavioral interventions, compliance therapy, and psych educational interventions may improve adherence to antipsychotic medication compared to usual care. 04/05/2025 Other referral to the local chapter or national office of the Alzheimer's Association ( ; http://www.alz. org), the Alzheimer's Disease Education and Referral Center (ADEAR) ( ; http://www.ministerio. nih.gov/Alzheim ers/), Discussed the importance of medication adherence to prevent relapse and avoidance of substance misuse with patient. 1. Schizophrenia - Educated on all medications, benefits, side effects, risk, and mental health, depression anxiety, and mood d/o, movement d/o, and schizophrenia, psychosis, delusions, paranoia, compliance with medications and appointments discuss and educated on all rx decrease Abilify 10 mg at bedtime- stable monitor for psychosis delsuions, paranoia and depression patient reported doing better monitor for psychosis, paranoia, delusions obtain labs PCP AIMS= 5 10/15/23 AIMS= 16 10/12/24 SLUMS= 23 on 10/12/24 patient requested to be seen 5-6 months instead of 3 months r/t stable on rx and educated will be able to sooner if needed 2. depression -take Celexa 20 mg daily set alarms to take medications refer to therapy - refused SSRI side effects discussed including but not limited to, gastric upset, nausea, vomiting, diarrhea and/or constipation, weight changes, sexual side effects including loss of libido, increased suicidal thoughts/behaviors in children and young adults, and serotonin syndrome.Second generation antipsychotics (SGAs) have metabolic syndrome issues with weight gain, increase in prolactin, increased waist circumference, increased lipids, and increased glucose. Thus routine monitoring of weight, metabolic labs, etc. is indicated. A general rank ordering of antipsychotics that have the greatest to the least risk of metabolic effects is olanzapine, quetiapine, risperidone, ziprasidone, and aripiprazole. However, weight gain can occur with all of these drugs and considerable variability exists among patients receiving the same drug regarding the risk of metabolic effects. Anti-psychotic agents not only increase the risk of metabolic disorder, they also increase the risk of CVA, akathisia, and movement disorders including EPS or tardive dyskinesia (more common with first generation antipsychotics) and more. 3. 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 Tardive dyskinesia -AIMS COMPLETED = 7 on 12/01/20 AIMS = 16 reported has mouth movement and hand shakes still AIMS- 5 10/15/23 AIMS= 16 10/12/24 SLUMS= 23 10/12/24 AIMS= 16 off rx 5 months 10/12/24 reported continue to have TD- hands and arm, improved movement mouth and feet Increase Ingrezza 80 mg daily at night- [place] noted movement in hands bilateral, mouth and feet educated on rx Tardive Dyskinesia Dgnostic criteria include history of the use of neuroleptic medication for at least three months. [Or one month in patients 60 years of older] sign symptoms develop during exposure to neuroleptic medication Signs a symptoms include abnormal, involuntary movements of tongue, jaw, trunk, and extremities. Pharmacy: [facility]- 6. memory issues SLUMS= 23 10/12/24 DISCUSS SLUMS and medications options discuss and educated on medicationa and patient would like rx Namenda 10 mg twice a day- for memory 7. Long-term drug therapy Discussion NotesOne in a hundred people will develop schizophrenia, about 75% of people have relapses and continued disability, and a third fail to respond to standard treatment. Positive symptoms include auditory hallucinations, delusions, and thought disorder. Negative symptoms have not been consistently improved by any treatment. Standard treatment of schizophrenia is with antipsychotic drugs yet these can cause adverse effects such as sedation. Behavioral interventions, compliance therapy, and psych educational interventions may improve adherence to antipsychotic medication compared to usual care. 05/27/2025 Other referral to the local chapter or national office of the Alzheimer's Association ( ; http://www.alz. org), the Alzheimer's Disease Education and Referral Center (ADEAR) ( ; http://www.ministerio. nih.gov/Alzheim ers/), Discussed the importance of medication adherence to prevent relapse and avoidance of substance misuse with patient. 1. Schizophrenia - Educated on all medications, benefits, side effects, risk, and mental health, depression anxiety, and mood d/o, movement d/o, and schizophrenia, psychosis, delusions, paranoia, compliance with medications and appointments discuss and educated on all rx Abilify 10 mg at bedtime- stable monitor for psychosis delsuions, paranoia and depression patient reported doing better monitor for psychosis, paranoia, delusions obtain labs PCP AIMS= 5 10/15/23 AIMS= 16 10/12/24 SLUMS= 23 on 10/12/24 patient requested to be seen 5-6 months instead of 3 months r/t stable on rx and educated will be able to sooner if needed 2. depression -take Celexa 20 mg daily set alarms to take medications refer to therapy - refused SSRI side effects discussed including but not limited to, gastric upset, nausea, vomiting, diarrhea and/or constipation, weight changes, sexual side effects including loss of libido, increased suicidal thoughts/behaviors in children and young adults, and serotonin syndrome.Second generation antipsychotics (SGAs) have metabolic syndrome issues with weight gain, increase in prolactin, increased waist circumference, increased lipids, and increased glucose. Thus routine monitoring of weight, metabolic labs, etc. is indicated. A general rank ordering of antipsychotics that have the greatest to the least risk of metabolic effects is olanzapine, quetiapine, risperidone, ziprasidone, and aripiprazole. However, weight gain can occur with all of these drugs and considerable variability exists among patients receiving the same drug regarding the risk of metabolic effects. Anti-psychotic agents not only increase the risk of metabolic disorder, they also increase the risk of CVA, akathisia, and movement disorders including EPS or tardive dyskinesia (more common with first generation antipsychotics) and more. 3. 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 Tardive dyskinesia -AIMS COMPLETED = 7 on 12/01/20 AIMS = 16 reported has mouth movement and hand shakes still AIMS- 5 10/15/23 AIMS= 16 10/12/24 SLUMS= 23 10/12/24 AIMS= 16 off rx 5 months 10/12/24 reported continue to have TD- hands and arm, improved movement mouth and feet Ingrezza 60 mg daily at night- [place] - patient started this dose 05/26/25 Patient reported shaking more at Ingrezza 80 mg dose noted movement in hands bilateral, mouth and feet educated on rx Tardive Dyskinesia Dgnostic criteria include history of the use of neuroleptic medication for at least three months. [Or one month in patients 60 years of older] sign symptoms develop during exposure to neuroleptic medication Signs a symptoms include abnormal, involuntary movements of tongue, jaw, trunk, and extremities. Pharmacy: [facility]- 6. memory issues SLUMS= 23 10/12/24 DISCUSS SLUMS and medications options discuss and educated on medicationa and patient would like rx Namenda 10 mg twice a day- for memory 7. Long-term drug therapy Discussion NotesOne in a hundred people will develop schizophrenia, about 75% of people have relapses and continued disability, and a third fail to respond to standard treatment. Positive symptoms include auditory hallucinations, delusions, and thought disorder. Negative symptoms have not been consistently improved by any treatment. Standard treatment of schizophrenia is with antipsychotic drugs yet these can cause adverse effects such as sedation. Behavioral interventions, compliance therapy, and psych educational interventions may improve adherence to antipsychotic medication compared to usual care. Plan Of Treatment Next Appt Details Provider Name:Lilliam Domingo , 08/25/2025 09:30:00 AM, [id number] [facility] [address], [facility] [address], [place], [address], Insurance Providers Payer Name Payer Address Payer Phone Subscriber Number Group Number Insured Name Patient Relationship to Insured Coverage Start Date Coverage End Date [employer] Medicare Replacement/ Advantage - Hmo [address] [place] [phone] [id number] HANNA HAYDEN Self - patient is the insured Medical (General) History Medical History History ICD Code Problems: Abnormal weight gain Caffeine dependence Generalized anxiety disorder History of SARS-CoV-2 Insomnia disorder related to another men bernard disorder Long-term drug therapy Mild recurrent major depression Moderate recurrent major depression Schizophrenia Severe recurrent major depression withou t psychotic features Tardive dyskinesia Tobacco user Vitamin D deficiency , Surgical History Surgery Date(Month/Year) Hysterectomy (97234) 09/30/1978
== END 2025-06-11 09:15 | disposition home or self-care (01) ==
LOC: ANHFOHIMG 09:15
PROVIDERS: PCP Family Medicine; Visit Provider Family Medicine
DX: Z78.0 Asymptomatic menopausal state (principal); M85.852 Other specified disorders of bone density and structure, left thigh; M85.851 Other specified disorders of bone density and structure, right thigh
CPT/HCPCS: 77080

== ENCOUNTER 2025-07-25 09:49 | Outpatient (CLI) | payer OTHER, MEDICAID, SELFPAY ==
--- NOTE | ~2025-07-25 | MR_ITS ---
EXAMINATION: MR brain/brain stem wo/w con DATE: 07/25/2025 11:45 INDICATION: Tremor, unspecified. TECHNIQUE: Magnetic resonance imaging (MRI) of the brain and brainstem was performed without and with 20 mL MultiHance intravenous contrast. COMPARISON: Head CT 08/02/2018 FINDINGS: There are scattered areas of nonspecific increased T2-weighted signal intensity in the cerebral white matter. There is no acute ischemic infarct or intracranial hemorrhage. There is an enhancing mass medial to left temporal lobe and left anterolateral to the chyna with involvement of the sella, suprasellar cistern, prepontine cistern, and left cavernous sinus. The mass measures 2.5 x 3.9 x 3.1 cm. The ventricles are normal in size. There are likely changes of ocular lens replacement surgeries. There is mild mucosal thickening in the paranasal sinuses. There is a 1.7 x 1.0 cm cyst posterior to right maxillary sinus and anterior to right temporal lobe. The mastoid air cells are normal. IMPRESSION: 1. 2.5 x 3.9 x 3.1 cm mass involving the sella, suprasellar cistern, and left parasellar region. The differential diagnosis includes pituitary macroadenoma and meningioma. The mass measured approximately 3.1 x 1.5 x 2.3 cm on 08/02/18. 2. 1.7 x 1.0 cm cyst posterior to right maxillary sinus and anterior to right temporal lobe, stable from 08/02/18. The differential diagnosis includes lymphangioma and meningocele. 3. Moderate nonspecific cerebral white matter disease, which likely represents chronic small vessel ischemic disease. Reviewed, dictated and finalized at location E. IMPRESSION: 1. 2.5 x 3.9 x 3.1 cm mass involving the sella, suprasellar cistern, and left p arasellar region. The differential diagnosis includes pituitary macroadenoma an d meningioma. The mass measured approximately 3.1 x 1.5 x 2.3 cm on 08/02/18. 2. 1.7 x 1.0 cm cyst posterior to right maxillary sinus and anterior to right t emporal lobe, stable from 08/02/18. The differential diagnosis includes lymphang ioma and meningocele. 3. Moderate nonspecific cerebral white matter disease, which likely represents chronic small vessel ischemic disease.
== END 2025-07-25 09:50 | disposition home or self-care (01) ==
PROVIDERS: PCP Family Medicine; Visit Provider Family Medicine
DX: R25.1 Tremor, unspecified (principal); R53.1 Weakness; R90.82 White matter disease, unspecified; J34.1 Cyst and mucocele of nose and nasal sinus; E23.6 Other disorders of pituitary gland
CPT/HCPCS: 70553; A9577